=== PATIENT | male | born 1935 | race Caucasian/White ===

== ENCOUNTER 2020-04-30 11:27 | Inpatient (IN) | payer MEDICARE, SELFPAY ==
[2020-04-30] VITALS (13 sets, daily range): BP systolic 117–157; BP diastolic 62–77; PULSE 66–105; RESP 16–36; TEMP 37.4–37.8; O2SAT 89–95
--- NOTE | ~2020-04-30 | CT_ITS ---
EXAMINATION: CT abdomen pelvis w con DATE: 04/30/2020 13:14 INDICATION: Abdominal pain. TECHNIQUE: Computed tomography (CT) of the abdomen and pelvis was performed with 100 mL Omnipaque 350 intravenous contrast. Automated exposure control and iterative reconstruction technique were employe d. The dose-length product was 1377.33 mGy-cm. COMPARISON: CT abdomen and pelvis 12/10/2008 FINDINGS: The visualized portions of the lung bases demonstrates mild atelectasis. No pleural effusio n. Cardiomegaly is noted. There are coronary artery calcifications. No pericardial effusion. Calcifie d right hilar lymph nodes are consistent with old granulomatous disease. There is a 4 mm cyst in the liver. There is new moderate intrahepatic biliary duct dilatation. The common duct is dilated to 17 m m. There is a 2.8 cm partially calcified hyperenhancing mass in the head of the pancreas with strictu re of the common duct. The gallbladder is normal. Calcifications in the spleen are consistent with ol d granulomatous disease. Right adrenal gland is normal. 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 There is a 1.5 cm cyst in right kidney. Left kidney is normal. There is diffuse bladder wall thickening, likely secondary to chronic outlet obstruction from the moderately enlarged prostate. There is diverticulosis of the colon without evidence of diverticu litis. There are no dilated loops of bowel. The appendix is normal. Again seen is fat stranding at th e root of the small bowel mesentery, consistent with edema versus inflammation/scarring. There is a r ight inguinal hernia containing fat. There are no pathologically enlarged lymph nodes. There is no fr ee intraperitoneal fluid. There is moderate lumbar spondylosis. There are bridging endplate osteophyt es at multiple levels in the thoracic spine, consistent with diffuse idiopathic skeletal hyperostosis (DISH). IMPRESSION: 1. 2.8 cm pancreatic mass with common bile duct stricture and moderate intrahepatic and extrahepatic biliary duct dilatation. The differential diagnosis includes pancreatic neuroendocrine carcinoma and cholangiocarcinoma. ERCP is recommended. Reviewed, dictated and finalized at location A. FARM ATTENDANT IMPRESSION: 1. 2.8 cm pancreatic mass with common bile duct stricture and moderate intrahep atic and extrahepatic biliary duct dilatation. The differential diagnosis inclu junito pancreatic neuroendocrine carcinoma and cholangiocarcinoma. ERCP is recomme nded.
--- NOTE | ~2020-04-30 | XR_ITS ---
EXAMINATION: XR chest 2V DATE: 04/30/2020 12:39 INDICATION: Weakness and tremors TECHNIQUE: AP and lateral views of the chest are obtained. COMPARISON: None available FINDINGS: There are minimal airspace opacities of the left lower lobe. There is no pleural effusion o r pneumothorax. The cardiomediastinal silhouette is normal. There is mild thoracic spondylosis. IMPRESSION: 1. Minimal left lower lobe airspace opacity, consistent with atelectasis versus pneumonia. Reviewed, dictated and finalized at location A. D BANK ASSISTANT
--- NOTE | 2020-04-30 12:00 | ECG_ITS ---
Measurements Intervals [place] Rate: 102 P: 34 OH: 134 QRS: -8 QRSD: 142 T: 47 QT: 330 QTc: 432 Interpretive Statements SINUS TACHYCARDIA RIGHT BUNDLE BRANCH BLOCK BASELINE ARTIFACT- I, II, III, AVR, AVL, AVF, V3-V6 ABNORMAL ECG Electronically Signed On 04-30-2020 12:26:27 SUBSTATION OPERATOR AUTOMATIC by Les Oneill D.O.
[2020-04-30 12:28] LABS: Basophils Percent Auto 0.5 % (0.2-1.2); Eosinophils Percent Auto 0.3 % (0-4.4); Hematocrit 43.2 % (42.0-52.0); Hemoglobin 14.6 g/dL (14.0-18.0); Immature Granulocyte Absolute 0.11 K/mm3 (0.00-0.031); Immature Granulocyte Percent A 1.4 % (0-0.5); Lymphocytes Absolute Auto 0.41 K/mm3 (0.9-3.2); Lymphocytes Percent Auto 5.2 % (18.3-44.2); Mean Corpuscular HGB Conc 33.8 g/dl (32-36); Mean Corpuscular Hemoglobin 29.6 pg (26-34); Mean Corpuscular Volume 87.6 fl (80-100); Mean Platelet Volume 9.3 fl (7.4-10.4); Monocytes Absolute Auto 0.6 K/mm3 (0.1-0.6); Monocytes Percent Auto 7.2 % (2.6-8.5); Neutrophils Absolute Auto 6.7 K/mm3 (1.3-6.7); Neutrophils Percent Auto 85.4 % (45.5-73.1); Platelet Count Result 152 k/mm3 (150-375); Red Blood Count 4.93 M/mm3 (4.6-6.20); Red Cell Distribution Width 13.1 % (11.5-14.5); White Blood Count 7.8 K/mm3 (4.5-10.0)
[2020-04-30] MEDS: SODIUM CHLORIDE 0.9% IV 500 ML 999 ML IV CONT (12:29)
[2020-04-30 12:39] LABS: Alanine Aminotransferase 82 U/L (4-50); Albumin Level 3.7 g/dL (3.5-5.1); Alkaline Phosphatase 79 U/L (38-126); Anion Gap 5 mmol/L (8-16); Aspartate Amino Transferase 177 U/L (17-59); Bilirubin,Total 0.6 mg/dL (0.2-1.3); Blood Urea Nitrogen 13 mg/dL (9-20); Calcium 8.4 mg/dL (8.4-10.2); Carbon Dioxide 28 mmol/L (22-30); Chloride 101 mmol/L (98-107); Estimated CRCL calculation 64 ml/min; Estimated Glomerular Filt Rate > 60; Glucose 141 mg/dL (75-110); Potassium 3.9 mmol/L (3.4-5.0); Sodium 134 mmol/L (137-145)
[2020-04-30 13:17] LABS: Lactic Acid Reflex 1.2 mmol/L (0.7-2.1)
[2020-04-30 13:19] LABS: Add Urine Microscopic? YES; Appearance Urine Clear (Clear); Bacteria Urine Trace /hpf; Bilirubin Urine Negative (Negative); Blood Urine 2+ (Negative); Color Urine Yellow (Yellow); Glucose Urine UA Negative (Negative); Ketones Urine Negative (Negative); Leukocyte Esterase Ur 3+ LEU/UL (Negative); Mucus Urine Rare /lpf; Nitrate Urine Negative (Negative); Protein Urine 1+ mg/dL (Negative); Specific Grav Ur 1.019 (1.001-1.035); Urobilinogen Urine Negative mg/dL (<2.0); WBC Clumps Urine Present /HPF; WBC Urine >75 /hpf
--- NOTE | 2020-04-30 13:21 | ED.GENADULT ---
HPI - General Adult General Chief complaint: Weakness Stated complaint: UTI/ weakness Time Seen by Provider: 04/30/20 12:16 Source: patient Mode of arrival: ambulatory Limitations: no limitations History of Present Illness HPI narrative: Patient is an 85-year-old male who presents to emergency department for evaluation of feeling as though he may have urinary tract infection coupled with dehydration patient notes some burning with urination notes fatigue and not feeling well denies URI symptoms or other complaints patient has not been seen for this complaint lives at home by himself Related Data Allergies Allergy/AdvReac Type Severity Reaction Status Date / Time No Known Allergies Allergy Unknown Verified 02/19/20 09:35 NKFA Allergy Unknown Unknown Uncoded 02/19/20 09:35 [facility] Past Medical History Medical History (Updated 04/30/20 @ 15:02 by Apolinar Up PA-C) Hypertension Family History Family History Sibling Family history of diabetes mellitus in first degree relative Social History Social History Smoking status: Never smoker Alcohol intake: never Exam Narrative: Exam Narrative: GENERAL: Well-appearing, obese, and in no acute distress. HEAD: Normocephalic, atraumatic. EYES: PERRLA and EOMI. ENT: Nares clear, no rhinorrhea or epistaxis. Mucous membranes moist. NECK: Supple. No adenopathy or masses. CHEST: Clear to auscultation. No respiratory distress. No wheezes rales or rhonchi HEART: Regular rate and rhythm. No murmur heard. Normal peripheral pulses. ABDOMEN: Soft, nontender, nondistended EXTREMITIES: Normal range of motion. No edema. SKIN: Warm, dry, no rash. NEURO: No focal deficits. Alert and oriented x3. Cranial nerves II through XII grossly intact. Patient with resting tremor PSYCH: Normal mood and affect. Course Course Emergency Course: Patient presented with concern for urinary tract infection and dehydration which appears to be correct on CT imaging of the patient she was found to have a pancreatic mass, discussion was made with litigation examiner who notes she will likely do ERCP. GI notes that they will consult on the patient. Patient will be at admitted to the hospitalist service. Patient in the room in no distress feeling better with interventions to include fluids and antibiotics Consultations Consultation #1: Discussed case with Dr. Durant who will consult on the patient with planned ERCP and reevaluation Discussed case with [facility] who is agreed to accept the patient Date: 04/30/20 Time: 15:00 Vital Signs Vital signs: Vital Signs Temperature 100.1 F H 04/30/20 11:56 Pulse Rate 105 H 04/30/20 11:56 Respiratory Rate 19 04/30/20 11:56 Blood Pressure 120/67 04/30/20 11:56 Pulse Oximetry 95 04/30/20 11:56 Temperature 100.1 F H 04/30/20 11:56 Pulse Rate 82 04/30/20 13:32 Respiratory Rate 31 H 04/30/20 13:32 Blood Pressure 129/62 04/30/20 13:32 Pulse Oximetry 93 04/30/20 13:32 Medical Decision Making MDM Narrative Medical decision making narrative: Patient in the room at this time aware of case findings treatment plan diagnosis agreeing to the treatment plan has been hydrated given IV antibiotics and will be brought into the hospital for further evaluation of his CT findings and urinary tract infection. Patient denies any URI symptoms Vital Signs Vital Signs: Vital Signs Temperature 100.1 F H 04/30/20 11:56 Pulse Rate 105 H 04/30/20 11:56 Respiratory Rate 19 04/30/20 11:56 Blood Pressure 120/67 04/30/20 11:56 Pulse Oximetry 95 04/30/20 11:56 Temperature 100.1 F H 04/30/20 11:56 Pulse Rate 82 04/30/20 13:32 Respiratory Rate 31 H 04/30/20 13:32 Blood Pressure 129/62 04/30/20 13:32 Pulse Oximetry 93 04/30/20 13:32 Lab Data Result diagrams: 04/30/20 12:14 04/30/20 12:14
[2020-04-30 13:30] LABS: CRP 13.6 mg/dL (<1.0)
[2020-04-30 13:47] LABS: Lipase 98 U/L (23-300)
--- NOTE | 2020-04-30 16:45 | WPDGICN ---
Assessment and Plan Assessment and plan (1) Mass of pancreas: Code(s): K86.89 - Other specified diseases of pancreas Status: Acute Assessment and Plan: Patient has elevated transaminases. CT scan suggested 2.5cm mass in the pancreas with partial obstruction of the common bile duct. Most consistent with pancreatic cancer. Plan is to obtain CA 19-9 tumor marker. ERCP with possible stent placement is advised after patient is rehydrated. Broad-spectrum antibiotics for his urinary tract infection such as Cipro or Levaquin may also help minimize possible obstruction in the biliary tree. Ultimately. Shunt may require biopsy of this and will require referral for endoscopic ultrasound to a tertiary care center. It may be feasible to ask for ERCP to be done at the same time. (2) Urinary tract infection: Code(s): N39.0 - Urinary tract infection, site not specified Status: Acute (3) Atrial fibrillation: Qualifiers: Atrial fibrillation type: unspecified Qualified Code(s): I48.91 - Unspecified atrial fibrillation Code(s): I48.91 - Unspecified atrial fibrillation Status: Acute (4) Resting tremor: Code(s): G25.2 - Other specified forms of tremor Status: Acute GI Consult Note Consult date/time: 04/30/20 16:45 HPI: Saad Norton is a 85 year old male Seen in evaluation at the request of the emergency room. Patient reports having some difficulty urinating associated with some burning with urination over the last several days. He became somewhat weak. And for this reason presented to the emergency room. In the emergency room he was noted to have elevated LFTs. A CT scan of the abdomen was performed raising the question of a 2-1/2cm pancreatic mass. Partial obstruction the common bile duct was suggested as well. Patient denies any overt abdominal pain. He has had no history of jaundice. He denies any prior history of liver or pancreatic disease. Review of Systems Review of Systems: All systems reviewed & are unremarkable except as noted in HPI and below [facility] Past Medical History Medical History (Updated 04/30/20 @ 15:02 by Apolinar Up PA-C) Hypertension Family History Family History Sibling Family history of diabetes mellitus in first degree relative Social History Social History (Reviewed 02/19/20 @ 09:37 by Amy Mack Smoking status: Never smoker Alcohol intake: never Meds Home Medications and Allergies Home Medications Medication Instructions Recorded Confirmed Type aspirin 81 mg tablet,delayed 81 mg PO DAILY #1 tablet 02/19/20 02/19/20 Rx release calcium polycarbophil 625 mg tablet 1,250 mg PO DAILY #1 tablet 02/19/20 02/19/20 Rx amlodipine 5 mg tablet See Rx Instructions .ROUTE 04/06/20 04/30/20 Rx .COMPLEX #90 tablet Allergies Allergy/AdvReac Type Severity Reaction Status Date / Time No Known Allergies Allergy Unknown Verified 02/19/20 09:35 NKFA Allergy Unknown Unknown Uncoded 02/19/20 09:35 Vital Signs Vital Signs - 24 hr 04/30/20 11:56 04/30/20 12:09 04/30/20 12:15 Temperature 100.1 F H Pulse Rate 105 H 100 101 H Respiratory Rate 19 36 H 28 H Blood Pressure 120/67 Pulse Oximetry 95 93 93 04/30/20 12:21 04/30/20 12:46 04/30/20 12:47 Temperature Pulse Rate Respiratory Rate Blood Pressure 140/74 157/77 H Pulse Oximetry 93 89 L 91 04/30/20 13:14 04/30/20 13:17 04/30/20 13:30 Temperature Pulse Rate 88 90 66 Respiratory Rate 24 H 34 H 27 H Blood Pressure Pulse Oximetry 92 93 92 04/30/20 13:32 04/30/20 15:00 04/30/20 16:15 Temperature Pulse Rate 82 83 82 Respiratory Rate 31 H 16 18 Blood Pressure 129/62 125/63 123/75 Pulse Oximetry 93 94 95 Exam Narrative: Exam Narrative: Physical exam reveals patient be alert. Vital signs stable. HEENT exam unremarkable. Patient is anicteric. Lung
[2020-04-30] MEDS: LACTATED RINGERS 1,000 ML 80 ML IV CONT (17:23)
--- NOTE | 2020-04-30 17:35 | ADMGEN ---
This patient, Saad Norton, was admitted to 3 [facility] Surg Room 332-01. Report received from GARY Pham. Patient/family oriented to hospital policies and general routines including ID bracelet, bed and alarms, visiting hours, pain management, procedures, bathroom and other care routines, personal items, smoking policy, room service/diet, and visiting hours. Information on how to activate the Rapid Response Team has been discussed. Patient/Family are encouraged to report perceived risks to care and to ask questions if they do not understand what they are told or what they should do.
--- NOTE | 2020-04-30 20:12 | PM.IMHP ---
H&P: HPI History of Present Illness Date/Time: 04/30/20 20:12 Chief Complaint: Dysuria Narrative: Saad Norton is a 85 year old male who came to the emergency room for evaluation of feeling with a urinary tract infection. His bleeding with urination in low-grade fever. He feels very fatigued. The patient was found to have urinary tract infection. He denies any upper respiratory infections. Denies being around any with COVID-19. Abdominal pelvis CT was read as 2.8 cm pancreatic mass with common bile duct stricture and moderate intrahepatic and extrahepatic biliary duct dilatation. Liver enzymes are mildly elevated he is not having any abdominal pain. I did call the hepatobiliary team and they did take down his information will see him outpatient [place]. Dr. branham a nursing education consultant has seen the patient. CA 19-19 tumor markers were checked. Gastroenteritis is no noted that it may be feasible desk for ERCP to be done with referral for endoscopy ultrasound tertiary [facility]. That is when I contacted the [facility] biliary specialist at [place]. I did push the CT scan and faxed over the face sheet to [facility]. The patient was given IV fluid as IV Tylenol and Rocephin. Shows minimal left lower lobe airspace opacity consistent with atelectasis versus pneumonia. Patient is being admitted to observation the date of service 04/30/2020. Review of Systems Review of Systems: All systems reviewed & are unremarkable except as noted in HPI and below Constitutional: Constitutional: Reports as per HPI and Reports no additional constitutional complaints Eyes: Eyes: Reports as per HPI and Reports no additional eye complaints ENT: Reports system reviewed and no additional complaints, except as documented and Reports Normal hearing present Cardiovascular: Cardiovascular: Reports no additional cardiovascular complaints Respiratory: Respiratory: Reports no additional respiratory complaints and Reports no additional respiratory complaints Gastrointestinal: Gastrointestinal: Reports as per HPI and Reports no additional gastrointestinal complaints Musculoskeletal: Musculoskeletal: Reports no additional musculoskeletal complaints Integumentary/Breasts: Skin/Breast: Reports system reviewed and no additional complaints, except as docu and Reports as per HPI Neurologic: Reports system reviewed and no additional complaints, except as documented, Reports as per HPI and Reports Normal hearing present Psychiatric: Psychiatric: Reports no additional psychiatric complaints and Reports as per HPI Endocrine: Endocrine: Reports no additional endocrine complaints Hematologic/Lymphatic: Hematologic/Lymphatic: Reports no additional hematologic/lymphatic complaints Allergic/Immunologic: Allergic/Immunologic: Reports no additional allergic/immunologic complaints [facility] Past Medical History Medical History (Updated 04/30/20 @ 20:26 by Tracy Ladd NP) Hypertension S/P ORIF (open reduction internal fixation) fracture Left ankle Surgical History Surgical History (Updated 04/30/20 @ 20:26 by Tracy Ladd NP) History of ankle surgery ORIF left ankle Family History Family History (Updated 04/30/20 @ 20:27 by Tracy Ladd NP) Sibling Family history of diabetes mellitus in first degree relative Mother Diabetes mellitus Hypertension Father Sudden Social History Social History (Updated 04/30/20 @ 20:38 by Tracy Ladd NP) Social History: The patient is living home alone. He is . He does not have a durable power sports attorney for healthcare. The patient is retired from frenting. He is a lifelong nonsmoker. He does not use any alcohol or illicit drugs. The patient had 1 daughter and no other children Smoking status: Never smoker Alcohol intake: never Substance use: never Spiritual care concerns: No Meds Home Medications and Allergies Home Medications Medication Instructions Recorded Confirmed Type as
[2020-04-30] MEDS: levoFLOXacin 500 MG/D5W 100 ML 500 MG/100 ML BAG 100 MG IVPB (22:00)
[2020-04-30] MEDS: FAMOTIDINE 20 MG/2 ML VIAL IV PUSH (22:00)
[2020-05-01] VITALS (7 sets, daily range): BP systolic 116–144; BP diastolic 53–63; PULSE 66–81; RESP 20–22; TEMP 36.9–37.2; O2SAT 92–94
[2020-05-01] MEDS: LACTATED RINGERS 1,000 ML 80 ML IV CONT (05:24)
[2020-05-01 06:01] LABS: Basophils Absolute Auto 0.1 K/mm3 (0.0-0.1); Basophils Percent Auto 0.8 % (0.2-1.2); Eosinophils Percent Auto 0.5 % (0-4.4); Hematocrit 42.9 % (42.0-52.0); Hemoglobin 14.5 g/dL (14.0-18.0); Immature Granulocyte Percent A 1.6 % (0-0.5); Immature Platelet Fraction Pct 2.1 % (0.9-11.2); Lymphocytes Absolute Auto 0.68 K/mm3 (0.9-3.2); Lymphocytes Percent Auto 10.9 % (18.3-44.2); Mean Corpuscular HGB Conc 33.8 g/dl (32-36); Mean Corpuscular Hemoglobin 29.7 pg (26-34); Mean Corpuscular Volume 87.7 fl (80-100); Mean Platelet Volume 8.9 fl (7.4-10.4); Monocytes Absolute Auto 0.8 K/mm3 (0.1-0.6); Monocytes Percent Auto 13.3 % (2.6-8.5); Neutrophils Absolute Auto 4.6 K/mm3 (1.3-6.7); Neutrophils Percent Auto 72.9 % (45.5-73.1); Platelet Count Result 157 k/mm3 (150-375); Red Blood Count 4.89 M/mm3 (4.6-6.20); White Blood Count 6.2 K/mm3 (4.5-10.0)
[2020-05-01 07:01] LABS: Alanine Aminotransferase 74 U/L (4-50); Albumin Level 3.2 g/dL (3.5-5.1); Alkaline Phosphatase 72 U/L (38-126); Anion Gap 3 mmol/L (8-16); Aspartate Amino Transferase 129 U/L (17-59); Bilirubin Indirect 0.3 mg/dL (0-1.1); Bilirubin,Total 0.5 mg/dL (0.2-1.3); Blood Urea Nitrogen 11 mg/dL (9-20); Calcium 7.9 mg/dL (8.4-10.2); Carbon Dioxide 27 mmol/L (22-30); Chloride 102 mmol/L (98-107); Estimated CRCL calculation 64 ml/min; Estimated Glomerular Filt Rate > 60; Glucose 94 mg/dL (75-110); Lactate Dehydrogenase 657 U/L (313-618); Magnesium 1.6 mg/dL (1.6-2.3); Potassium 3.8 mmol/L (3.4-5.0); Sodium 132 mmol/L (137-145)
--- NOTE | 2020-05-01 07:20 | WPDGIPROGNO ---
Progress Note: A&P Assessment and Plan (1) Mass of pancreas: Code(s): K86.89 - Other specified diseases of pancreas Status: Acute Assessment and Plan: 2-1/2cm mass of the pancreas noted on CT scan. Appears to be contributing to biliary stricture. Malignancy is strongly suspected. Elevated transaminases noted on labs. Patient will need endoscopic ultrasound for possible possible biopsy. He ERCP for possible stent. Suggest referral to [facility] biliary service as an outpatient for this to be accomplished. CA 19-9 level is pending. (2) Urinary tract infection: Code(s): N39.0 - Urinary tract infection, site not specified Status: Acute Assessment and Plan: Patient admitted with urinary tract infection and evidence for dehydration. Plan is to continue IV fluids advanced diet as tolerated. (3) Atrial fibrillation: Qualifiers: Atrial fibrillation type: unspecified Qualified Code(s): I48.91 - Unspecified atrial fibrillation Code(s): I48.91 - Unspecified atrial fibrillation Status: Acute Additional Plan Patient remains very weak. He may benefit from home health or therapy prior to discharge. Subjective Date/time seen: 05/01/20 07:20 Patient remains somewhat weak. But feels somewhat better today. States he took several hours to get out of his bathtub yesterday. He denies abdominal pain. No obvious icterus. Review of Systems Review of Systems: All systems reviewed & are unremarkable except as noted in HPI and below Exam Narrative: Exam Narrative: Physical exam reveals him to be alert. Comfortable at rest. HEENT exam unremarkable. He is anicteric. Lungs are clear. Heart without murmur. Abdomen is obese. Bowel sounds present soft nontender this morning. Unable to get out of bed on his own. Objective Data Vital Signs Vital Signs: Vital Signs - 24 hr 04/30/20 11:56 04/30/20 12:09 04/30/20 12:15 Temperature 100.1 F H Pulse Rate 105 H 100 101 H Respiratory Rate 19 36 H 28 H Blood Pressure 120/67 Pulse Oximetry 95 93 93 04/30/20 12:21 04/30/20 12:46 04/30/20 12:47 Temperature Pulse Rate Respiratory Rate Blood Pressure 140/74 157/77 H Pulse Oximetry 93 89 L 91 04/30/20 13:14 04/30/20 13:17 04/30/20 13:30 Temperature Pulse Rate 88 90 66 Respiratory Rate 24 H 34 H 27 H Blood Pressure Pulse Oximetry 92 93 92 04/30/20 13:32 04/30/20 15:00 04/30/20 16:15 Temperature Pulse Rate 82 83 82 Respiratory Rate 31 H 16 18 Blood Pressure 129/62 125/63 123/75 Pulse Oximetry 93 94 95 04/30/20 22:00 05/01/20 00:00 05/01/20 06:00 Temperature 99.3 F 98.9 F 98.9 F Pulse Rate 85 81 81 Respiratory Rate 24 H 22 H 22 H Blood Pressure 117/67 116/62 116/62 Pulse Oximetry 94 93 93 Intake/Output Intake/Output: Intake & Output 04/28/20 04/29/20 04/30/20 05/01/20 23:59 23:59 23:59 23:59 Intake Total 1130 1250 Balance 1130 1250 Meds/Results Medications: Active Medications Generic Name Dose Route Start Last Admin Trade Name Freq PRN Reason Stop Dose Admin Amlodipine Besylate 10 mg 05/01/20 09:00 Amlodipine Besylate 5 Mg Tablet PO DAILY MARIBEL Aspirin 81 mg 05/01/20 09:00 Aspirin 81 Mg Enteric Tablet PO DAILY [facility] Calcium Polycarbophil 1,250 mg 05/01/20 09:00 Calcium Polycarbophil 625 Mg Tablet PO DAILY MARIBEL Famotidine 20 mg 04/30/20 21:00 04/30/20 22:00 Famotidine 20 Mg/2 Ml Vial IV PUSH 20 mg Q12HR MARIBEL Administration Fish Oil 1 gm 05/01/20 09:00 [place] 3 Polyunsat Fatty Acids 1 Gm Cap PO DAILY MARIBEL Acetaminophen 1,000 mg in 100 mls @ 400 mls/hr 04/30/20 15:03 Ofirmev 1,000 Mg Ivpb IVPB 05/01/20 15:04 Q6H PRN Mild Pain (1-3) or Fever Lactated Ringer's 1,000 mls @ 80 mls/hr 04/30/20 15:05 05/01/20 05:24 Lr - Lactated Ringers Iv IV CONT 80 mls/hr .[id number] MARIBEL Administration Levofloxacin/Dextrose 500 mg in 100 mls @ 100 mls/hr
[2020-05-01] MEDS: ASPIRIN 81 MG ENTERIC TABLET PO (09:36)
[2020-05-01] MEDS: calcium polycarbophiL 625 MG TABLET 1250 MG PO (09:36)
[2020-05-01] MEDS: amLODIPine BESYLATE 5 MG TABLET 10 MG PO (09:37)
[2020-05-01] MEDS: FAMOTIDINE 20 MG/2 ML VIAL IV PUSH ×2 (09:37→21:47)
[2020-05-01] MEDS: OMEGA 3 POLYUNSAT FATTY ACIDS 1 GM CAP PO (09:37)
--- NOTE | 2020-05-01 11:42 | PM.IMPN ---
Progress Note: A&P Assessment and Plan (1) Suspected COVID-19 virus infection: Code(s): Z20.822 - Contact with and (suspected) exposure to COVID-19 Status: Acute Assessment and Plan: Pending COVID-19 testing No shortness of breath no cough no hypoxia (2) Mass of pancreas: Code(s): K86.89 - Other specified diseases of pancreas Status: Acute Assessment and Plan: 2.1-2.5 cm pancreatic mass associated with dilated intrahepatic and extrahepatic bile ducts need further workup as outpatient Gastroenterology recommendation appreciated Mildly elevated LFT Patient does not have abdominal pain No evidence of ascending cholangitis Plan to follow-up with established specialty finishing utility person as outpatient may need stent and biopsy (3) Urinary tract infection: Code(s): N39.0 - Urinary tract infection, site not specified Status: Acute Assessment and Plan: Reviewed UA Pending urine culture Continue IV antibiotics (4) Atrial fibrillation: Qualifiers: Atrial fibrillation type: unspecified Qualified Code(s): I48.91 - Unspecified atrial fibrillation Code(s): I48.91 - Unspecified atrial fibrillation Status: Acute Assessment and Plan: Stable continue home medication chronic (5) Essential (primary) hypertension: Code(s): I10 - Essential (primary) hypertension Status: Acute Assessment and Plan: Stable continue home meds (6) Mixed hyperlipidemia: Code(s): E78.2 - Mixed hyperlipidemia Status: Acute Assessment and Plan: Statin (7) Resting tremor: Code(s): G25.2 - Other specified forms of tremor Status: Acute (8) Hyponatremia: Code(s): E87.1 - Hypo-osmolality and hyponatremia Status: Acute Assessment and Plan: Acute hyponatremia monitor CMP improved IV hydration Additional Plan Monitor Subjective Date/time seen: 05/01/20 11:42 Interval history: Patient seen and examined Patient feels weak still complaining of atrial Patient denies fever headache chest pain shortness of breath I am seeing the patient for UTI Exam Narrative: Exam Narrative: Alert Chest no wheeze crackles Abdomen nontender nondistended CVS S1 + S2 Negative Lower extremity edema Objective Data Vital Signs Vital Signs: Vital Signs - 24 hr 04/30/20 11:56 04/30/20 12:09 04/30/20 12:15 Temperature 100.1 F H Pulse Rate 105 H 100 101 H Respiratory Rate 19 36 H 28 H Blood Pressure 120/67 Pulse Oximetry 95 93 93 04/30/20 12:21 04/30/20 12:46 04/30/20 12:47 Temperature Pulse Rate Respiratory Rate Blood Pressure 140/74 157/77 H Pulse Oximetry 93 89 L 91 04/30/20 13:14 04/30/20 13:17 04/30/20 13:30 Temperature Pulse Rate 88 90 66 Respiratory Rate 24 H 34 H 27 H Blood Pressure Pulse Oximetry 92 93 92 04/30/20 13:32 04/30/20 15:00 04/30/20 16:15 Temperature Pulse Rate 82 83 82 Respiratory Rate 31 H 16 18 Blood Pressure 129/62 125/63 123/75 Pulse Oximetry 93 94 95 04/30/20 22:00 05/01/20 00:00 05/01/20 06:00 Temperature 99.3 F 98.9 F 98.9 F Pulse Rate 85 81 81 Respiratory Rate 24 H 22 H 22 H Blood Pressure 117/67 116/62 116/62 Pulse Oximetry 94 93 93 05/01/20 08:00 05/01/20 08:52 Temperature 98.8 F Pulse Rate 66 Respiratory Rate 20 Blood Pressure 128/63 Pulse Oximetry 93 94 Intake/Output Intake/Output: Intake & Output 04/28/20 04/29/20 04/30/20 05/01/20 23:59 23:59 23:59 23:59 Intake Total 1130 1250 Balance 1130 1250 Meds/Results Medications: Active Medications Generic Name Dose Route Start Last Admin Trade Name Diana PRN Reason Stop Dose Admin Amlodipine Besylate 10 mg 05/01/20 09:00 05/01/20 09:37 Amlodipine Besylate 5 Mg Tablet PO 10 mg DAILY MARIBEL Administration Aspirin 81 mg 05/01/20 09:00 05/01/20 09:36 Aspirin 81 Mg Enteric Tablet PO 81 mg DAILY MARIBEL Administration Calcium Polycarbophil 1,250 mg
[2020-05-01 18:47] LABS: SARS-CoV-2 RNA PCR Negative
[2020-05-01] MEDS: levoFLOXacin 500 MG/D5W 100 ML 500 MG/100 ML BAG 100 MG IVPB (21:47)
[2020-05-02 01:27] VITALS: BP 128/49; PULSE 67; RESP 19; TEMP 36.9; O2SAT 92
[2020-05-02] MEDS: LACTATED RINGERS 1,000 ML 80 ML IV CONT (05:20)
[2020-05-02 06:00] VITALS: BP 128/49; PULSE 67; RESP 20; TEMP 36.9; O2SAT 92
[2020-05-02] MEDS: OMEGA 3 POLYUNSAT FATTY ACIDS 1 GM CAP PO (08:55)
[2020-05-02] MEDS: ASPIRIN 81 MG ENTERIC TABLET PO (08:55)
[2020-05-02] MEDS: amLODIPine BESYLATE 5 MG TABLET 10 MG PO (08:55)
[2020-05-02] MEDS: FAMOTIDINE 20 MG/2 ML VIAL IV PUSH (08:55)
[2020-05-02] MEDS: calcium polycarbophiL 625 MG TABLET 1250 MG PO (08:55)
--- NOTE | 2020-05-02 10:35 | WPDGIPROGNO ---
Progress Note: A&P Assessment and Plan (1) Urinary tract infection: Code(s): N39.0 - Urinary tract infection, site not specified Status: Acute Assessment and Plan: UTI improving with broad-spectrum antibiotics. Course of therapy will be dictated by primary care service. (2) Mass of pancreas: Code(s): K86.89 - Other specified diseases of pancreas Status: Acute Assessment and Plan: Mass on the pancreas identified by CT scan. This appears to be causing a biliary stricture. Elevated serum transaminases are on this basis. Plan is for referral as an outpatient to [facility] biliary Service for endoscopic ultrasound hopefully they can biopsy this a stent may need to be placed. This will be deferred to their service. And performed as an outpatient. Subjective Date/time seen: 05/02/20 10:35 Patient alert more comfortable today. Tolerating diet. Denies abdominal pain. Review of Systems Review of Systems: All systems reviewed & are unremarkable except as noted in HPI and below Exam Narrative: Exam Narrative: Patient weak but remains in bed. HEENT exam unremarkable. He is anicteric. Lungs are clear. Heart without murmur. Abdomen bowel sounds present soft nontender. No organomegaly evident. Objective Data Vital Signs Vital Signs: Vital Signs - 24 hr 05/01/20 12:00 05/01/20 16:00 05/01/20 21:27 Temperature 98.6 F 98.5 F 98.5 F Pulse Rate 73 70 70 Respiratory Rate 20 20 20 Blood Pressure 144/61 H 122/53 L 122/57 L Pulse Oximetry 92 94 92 05/02/20 01:27 05/02/20 06:00 Temperature 98.5 F 98.5 F Pulse Rate 67 67 Respiratory Rate 19 20 Blood Pressure 128/49 L 128/49 L Pulse Oximetry 92 92 Intake/Output Intake/Output: Intake & Output 04/29/20 04/30/20 05/01/20 05/02/20 23:59 23:59 23:59 23:59 Intake Total 1230 3500 1240 Output Total 2650 600 Balance 1230 850 640 Meds/Results Medications: Active Medications Generic Name Dose Route Start Last Admin Trade Name Freq PRN Reason Stop Dose Admin Amlodipine Besylate 10 mg 05/01/20 09:00 05/02/20 08:55 Amlodipine Besylate 5 Mg Tablet PO 10 mg DAILY MARIBEL Administration Aspirin 81 mg 05/01/20 09:00 05/02/20 08:55 Aspirin 81 Mg Enteric Tablet PO 81 mg DAILY MARIBEL Administration Calcium Polycarbophil 1,250 mg 05/01/20 09:00 05/02/20 08:55 Calcium Polycarbophil 625 Mg Tablet PO 1,250 mg DAILY MARIBEL Administration Famotidine 20 mg 04/30/20 21:00 05/02/20 08:55 Famotidine 20 Mg/2 Ml Vial IV PUSH 20 mg Q12HR MARIBEL Administration Fish Oil 1 gm 05/01/20 09:00 05/02/20 08:55 [place] 3 Polyunsat Fatty Acids 1 Gm Cap PO 1 gm DAILY MARIBEL Administration Lactated Ringer's 1,000 mls @ 80 mls/hr 04/30/20 15:05 05/02/20 05:20 Lr - Lactated Ringers Iv IV CONT 80 mls/hr .[id number] MARIBEL Administration Levofloxacin/Dextrose 500 mg in 100 mls @ 100 mls/hr 04/30/20 21:00 05/01/20 22:50 Levaquin 500 Mg/D5w 100 Ml IVPB Infused HS MARIBEL Infusion Ondansetron HCl 4 mg 04/30/20 15:03 Ondansetron Inj 4 Mg/2 Ml Vial IV PUSH Q4H PRN Nausea Radiology Results: ITS Impressions Chest X-Ray 04/30/20 12:41 IMPRESSION: 1. Minimal left lower lobe airspace opacity, consistent with atelectasis versus pneumonia. Abdomen/Pelvis CT 04/30/20 13:19 IMPRESSION: 1. 2.8 cm pancreatic mass with common bile duct stricture and moderate intrahepatic and extrahepatic biliary duct dilatation. The differential diagnosis includes pancreatic neuroendocrine carcinoma and cholangiocarcinoma. ERCP is recommended. ADDENDUM: 04/30/20 1093 I discussed this result with Apolin[facility] Up. Labs Labs: Laboratory Results - last 24 hr 05/01/20 05:20 SARS-CoV-2 RNA (RT-PCR) Negative
--- NOTE | 2020-05-02 11:46 | PM.DS ---
DS: Admitting Diagnosis Admitting Diagnosis Admitting Diagnosis: Generalized weakness DS: Discharge Diagnosis Discharge Diagnosis (1) Suspected COVID-19 virus infection: Code(s): Z20.822 - Contact with and (suspected) exposure to COVID-19 Status: Acute Assessment and Plan: COVID-19 was ruled out No shortness of breath no cough no hypoxia (2) Mass of pancreas: Code(s): K86.89 - Other specified diseases of pancreas Status: Acute Assessment and Plan: 2.1-2.5 cm pancreatic mass associated with dilated intrahepatic and extrahepatic bile ducts need further workup as outpatient Gastroenterology recommendation appreciated Mildly elevated LFT Patient does not have abdominal pain No evidence of ascending cholangitis Plan to follow-up with established trauma director as outpatient may need stent and biopsy (3) Urinary tract infection: Code(s): N39.0 - Urinary tract infection, site not specified Status: Acute Assessment and Plan: Reviewed UA secondary to E coli patient will be discharged on cefdinir (4) Atrial fibrillation: Qualifiers: Atrial fibrillation type: unspecified Qualified Code(s): I48.91 - Unspecified atrial fibrillation Code(s): I48.91 - Unspecified atrial fibrillation Status: Acute Assessment and Plan: Stable continue home medication chronic (5) Essential (primary) hypertension: Code(s): I10 - Essential (primary) hypertension Status: Acute Assessment and Plan: Stable continue home meds (6) Mixed hyperlipidemia: Code(s): E78.2 - Mixed hyperlipidemia Status: Acute Assessment and Plan: Statin (7) Resting tremor: Code(s): G25.2 - Other specified forms of tremor Status: Acute (8) Hyponatremia: Code(s): E87.1 - Hypo-osmolality and hyponatremia Status: Acute Assessment and Plan: Acute hyponatremia monitor CMP improved repeat CMP in 1 week follow-up with PCP DS: Summary Hospital Course Hospital Course: Patient was not in the hospital with chills generalized weakness was found to have UTI secondary to E coli also hyponatremia patient was treated with IV hydration IV antibiotics his condition improved patient was discharged in good condition to follow-up with PCP also patient has pancreatic mass patient to follow-up with established gastroenterology as outpatient Time Spent with Patient Time attestation: Total time spent providing and/or coordinating discharge services: 35 minutes Exam Narrative: Exam Narrative: Alert Chest no wheeze crackles Abdomen nontender nondistended CVS S1 + S2 Negative Lower extremity edema DS: Data Data Completed and Pending Labs on day of discharge: Labs from last 24 hours 05/01/20 05:20 SARS-CoV-2 RNA (RT-PCR) Negative Preliminary micro results at discharge 04/30/20 12:53 Blood Culture - Preliminary Blood 04/30/20 12:53 Blood Culture - Preliminary Blood Discharge Plan Discharge Attending physician on discharge: Alli Hussein M.A. Consulting providers: Adan Peralta ; Apolinar Up Discharging Clinician: Alli Hussein M.A. Patient Disposition: Home Health Service Activity: as tolerated Diet: as tolerated Patient Instructions: Antibiotic Form Stand Alone Forms: General Discharge Information Follow-up/Referrals: Adan Peralta MD [Physician] - Bhargav Montemayor MD [Primary Care Provider] - Discharge Medications: New cefdinir 300 mg capsule 300 mg PO Q12H Qty: 10 RF: 0 Continued aspirin 81 mg tablet,delayed release (DR/EC) 81 mg PO DAILY Qty: 1 RF: 0 calcium polycarbophil [FiberCon] 625 mg tablet 1,250 mg PO DAILY Qty: 1 RF: 0 amlodipine 10 mg Tablet 10 mg PO DAILY RF: 0 [place] 3 Fish Oil 684-1,200 mg Capsule,Delayed Release(Dr/Ec) 1 cap PO DAILY RF: 0 Date of admission: 04/30/20 15:03 Primary Care Provider: Bhargav Montemayor
[2020-05-05 06:14] LABS: CA 19-9 40 U/mL (<34)
== END 2020-05-02 13:20 | disposition home or self-care (01) | DRG 690 ==
LOC: ANHED 15:02 → ANH3MEDSUR 05-01 10:55
PROVIDERS: Emergency Medicine Emergency Medical Services; Internal Medicine Gastroenterology; Nurse Practitioner; Admitting Provider Family Medicine; Emergency Provider Emergency Medicine; PCP Internal Medicine; Visit Provider Internal Medicine
DX: N39.0 Urinary tract infection, site not specified (principal); I48.20 Chronic atrial fibrillation, unspecified; E87.1 Hypo-osmolality and hyponatremia; B96.20 Unspecified Escherichia coli [E. coli] as the cause of diseases classified elsewhere; K86.89 Other specified diseases of pancreas; Z20.822 Contact with and (suspected) exposure to COVID-19; E78.2 Mixed hyperlipidemia; I10 Essential (primary) hypertension; G25.2 Other specified forms of tremor; Z66 Do not resuscitate
CPT/HCPCS: 36415; 71046; 74177; 80053; 81001; 82248; 83605; 83615; 83690; 83735; 84443; 85025; 85055; 86140; 86301; 87040; 87077; 87086; 87088; 87186; 93005; 96361; 96365; 96367; 96375; 96376; 97161; 97165; 99285; A9270; C9803; G0378; J0131; J0696; J1956; J7040; J7120; Q9967; U0003; U0005

== ENCOUNTER 2021-09-17 17:04 | Observation (INO) | payer MEDICARE, SELFPAY ==
--- NOTE | ~2021-09-17 | XR_ITS ---
EXAMINATION: XR chest 2V DATE: 09/17/2021 20:51 INDICATION: Weakness TECHNIQUE: AP and lateral views of the chest are obtained. COMPARISON: None available FINDINGS: The lungs are free of acute opacities. There is no pleural effusion or pneumothorax. The ca rdiomediastinal silhouette is normal. There are bridging osteophytes at multiple levels in the spine, consistent with diffuse idiopathic skeletal hyperostosis (DISH). IMPRESSION: 1. No acute cardiopulmonary abnormality. Reviewed, dictated and finalized at location F.
--- NOTE | ~2021-09-17 | CT_ITS ---
EXAMINATION: CTA chest PE protocol DATE: 09/18/2021 00:01 INDICATION: Weakness, lower limb edema, COVID 19 positive TECHNIQUE: Computed tomography angiography (CTA) of the chest was performed with 100 mL Omnipaque-350 intravenous contrast timed to evaluate the pulmonary arteries. Coronal maximum intensity projection 3D-reconstructions were created by the technologist. The dose-length product (DLP) was 456.09 mGy-cm. Automated exposure control and iterative reconstruction technique were employed. COMPARISON: 04/30/2020 FINDINGS: The pulmonary arteries are well-opacified. No pulmonary embolism is identified. There is mi ld atelectasis. There is no pleural effusion or pneumothorax. No pathologically enlarged thoracic lym ph nodes are identified. The heart size is normal. Calcified coronary artery atherosclerosis is noted . There is atrophy of the left subscapularis muscle. Stones are present in the nondistended gallbladd er. There is chronic intrahepatic and extrahepatic biliary dilatation. 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 IMPRESSION: 1. No pulmonary embolism or acute cardiopulmonary abnormality. 2. Chronic intrahepatic and extrahepatic biliary dilatation, previously demonstrated to be related to pancreatic head mass. Evaluation with ERCP is recommended if not previously performed. Reviewed, dictated and finalized at location A. IMPRESSION: 1. No pulmonary embolism or acute cardiopulmonary abnormality. 2. Chronic intrahepatic and extrahepatic biliary dilatation, previously demonst rated to be related to pancreatic head mass. Evaluation with ERCP is recommende d if not previously performed.
--- NOTE | ~2021-09-17 | XR_ITS ---
EXAMINATION: XR chest 1V portable INDICATION: Shortness of breath, COVID 19 TECHNIQUE: Portable AP chest at 0540 hours COMPARISON: 09/17/2021 FINDINGS: There is mild atelectasis of the lung bases. There is no pleural effusion or pneumothorax. The cardiomediastinal silhouette is normal. There is no pleural effusion or pneumothorax. IMPRESSION: 1. Mild atelectasis of the lung bases. Reviewed, dictated and finalized at location A.
[2021-09-17 17:14] VITALS: BP 122/65; PULSE 77; RESP 20; TEMP 36.6; O2SAT 20
--- NOTE | 2021-09-17 17:23 | ECG_ITS ---
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
[2021-09-17 17:47] LABS: Hematocrit 47.4 % (42.0-52.0); Hemoglobin 15.3 g/dL (14.0-18.0); Mean Corpuscular HGB Conc 32.3 g/dl (32-36); Mean Corpuscular Hemoglobin 29.5 pg (26-34); Mean Corpuscular Volume 91.3 fl (80-100); Mean Platelet Volume 9.2 fl (7.4-10.4); Platelet Count Result 133 k/mm3 (150-375); Red Blood Count 5.19 M/mm3 (4.6-6.20); Red Cell Distribution Width 13.5 % (11.5-14.5); White Blood Count 3.3 K/mm3 (4.5-10.0)
[2021-09-17 17:57] LABS: Anion Gap 7 mmol/L (8-16); Blood Urea Nitrogen 16 mg/dL (9-20); Calcium 8.2 mg/dL (8.4-10.2); Carbon Dioxide 27 mmol/L (22-30); Chloride 101 mmol/L (98-107); Estimated CRCL calculation 64 ml/min; Estimated Glomerular Filt Rate > 60; Glucose 104 mg/dL (65-110); Prothrombin Time 12.3 Seconds (11.1-14.7); Sodium 135 mmol/L (137-145)
[2021-09-17 17:58] LABS: Partial Thromboplastin Time 37.8 SECONDS (22.3-36.8)
[2021-09-17 18:00] VITALS: O2SAT 98
[2021-09-17 18:10] LABS: Band Neutrophils Percent 7 % (0-6); Lymphocytes Absolute Manual 0.85 K/mm3 (1.1-4.5); Monocytes Absolute Manual 0.49 K/mm3 (0.1-0.90); Monocytes Percent Manual 15 % (3-9); Neutrophils Absolute Manual 1.94 K/mm3 (1.3-6.7); Neutrophils Percent Manual 52 % (46-73); Platelet Estimate Decreased (Adequate); Total Cells Counted 100
[2021-09-17 18:11] LABS: Atypical Lymphocytes Present
[2021-09-17 20:45] LABS: Appearance Urine Clear (Clear); Bilirubin Urine Negative (Negative); Blood Urine 2+ (Negative); Color Urine Yellow (Yellow); Glucose Urine UA Negative (Negative); Ketones Urine Negative (Negative); Leukocyte Esterase Ur Negative LEU/UL (Negative); Nitrate Urine Negative (Negative); Protein Urine Negative (Negative); Specific Grav Ur >= 1.030 (1.001-1.035); Urobilinogen Urine 0.2 mg/dL (<2.0); pH Urine 5.5 (5.0-9.0)
[2021-09-17 20:49] LABS: Bacteria Urine Trace /hpf; Mucus Urine Rare /lpf; RBC Urine 21-50 /hpf (0-2); WBC Urine 0-3 /hpf
[2021-09-17 20:51] LABS: Alanine Aminotransferase 309 U/L (6-50); Albumin Level 4.1 g/dL (3.5-5.1); Alkaline Phosphatase 158 U/L (38-126); Aspartate Amino Transferase 167 U/L (17-59); Bilirubin,Total 0.5 mg/dL (0.2-1.3); Creatine Kinase 121 U/L (55-170)
[2021-09-17 20:53] LABS: Add Urine Microscopic? YES
--- NOTE | 2021-09-17 20:59 | ED.WEAKNESS ---
HPI - Weakness General Chief complaint: Weakness Stated complaint: WEAKNESS Time Seen by Provider: 09/17/21 20:11 Source: patient and family Mode of arrival: ambulatory Limitations: other (poor historian) History of Present Illness HPI Narrative: This is an 86 year old male with history of hypertension, tremors, neuropathy who presents for evaluation of weakness and neuropathy. Patient was seen by his PCP with in the last 2 weeks for evaluation of tremors and peripheral neuropathy in feet. He was started o carbidopa- levodopa at that visit. Patient states he is here because his feet feel like he is walking on coals . He states this is not getting any better. His daughter is at bedside, and she states patient is here for weakness. Patient has been telling her he has not felt well since Monday. He has been complaining of cough , congestion and body aches. He denies chest pain, vomiting or diarrhea. HE denies any recent fall or head injury. His daughter also notes patient has stopped taking the carbidopa 2 days ago because he was not having any improvement. Related Data Home Medications Medication Instructions Recorded Confirmed omega-3 fatty acids-fish oil 684 1 cap PO DAILY 04/30/20 09/18/21 mg-1,200 mg capsule,delayed release aspirin 81 mg tablet,delayed 81 mg PO BID 09/18/21 09/18/21 release vitamin B complex (B 1 tablet PO DAILY 09/18/21 09/18/21 Complex-Vitamin B12 tablet) Allergies Allergy/AdvReac Type Severity Reaction Status Date / Time No Known Allergies Allergy Unknown Verified 09/03/21 08:00 NKFA Allergy Unknown Unknown Uncoded 09/03/21 08:00 Review of Systems Constitutional: Constitutional: Reports fatigue and Reports weakness ENT: Reports nasal congestion Cardiovascular: Cardiovascular: Denies chest pain Respiratory: Respiratory: Reports chest congestion and Reports cough Gastrointestinal: Gastrointestinal: Denies abdominal pain, Denies bloating, Denies nausea and Denies vomiting Genitourinary: Genitourinary: Denies dysuria Musculoskeletal: Musculoskeletal: Reports myalgias Neurologic: Reports weakness Comments: tremors PMFSH Past Medical History Medical History (Updated 09/18/21 @ 07:18 by Susana Ryan MD) Hypertension Surgical History Surgical History (Updated 09/03/21 @ 07:59 by Philly Nguyen MA) History of ankle surgery ORIF left ankle S/P ORIF (open reduction internal fixation) fracture Left ankle Status post surgical removal of malignant neoplasm of skin Family History Family History Sibling Family history of diabetes mellitus in first degree relative Mother Diabetes mellitus Hypertension Father Sudden Social History Social History (Updated 02/26/21 @ 07:46 by Kayleen Diaz MA) Social History: The patient is living home alone. He is . He does not have a durable power criminal attorney for healthcare. The patient is retired from [employer]. He is a lifelong nonsmoker. He does not use any alcohol or illicit drugs. The patient had 1 daughter and no other children Smoking status: Never smoker Second hand tobacco smoke exposure: No Alcohol intake: former Substance use: never Spiritual care concerns: No Exam Const: General: no acute distress and alert Nutritional Appearance: well nourished Orientation/consciousness: patient oriented x3 HENMT: Head: normal to inspection Face and sinus: normal facial exam Mouth: Yes Normal oral and palatal mucosa present Eyes: Pupils: Equal, round and reactive pupils present EOM: EOMs intact bilaterally Chest: Chest palpation & inspection: normal inspection of the chest Resp: Effort & Inspection: normal respiratory effort, no retractions and not tachypneic Auscultation: clear to auscultation bilaterally Cardio: Rate: regular rate Rhythm: regular rhythm Heart sounds: no murmurs GI: GI Palp: Yes Soft to
[2021-09-17 21:17] LABS: SARS-CoV-2 RNA PCR Positive
[2021-09-17 21:30] VITALS: BP 104/74; PULSE 63; RESP 24; O2SAT 93
[2021-09-17 21:34] LABS: Ammonia < 9 umol/L (9-30)
[2021-09-17 22:04] LABS: Alveolar/Arterial O2 Gradient 40.5 mmHg; Base Excess ABG -1.6 mEq/l (+/-2.0); Carboxyhemoglobin 0.6 % THb (0-2.0); Device ROOM AIR; Fractional Inspired Oxygen 21 %; HCO3 ABG 22.5 mEq/l (22.0-26.0); Methemoglobin ABG 0.3 %THb (0-1.5); Modified Allen's Test Pass; Oxygen Content ABG 20.4 %vol (16.0-22.0); Oxygen Saturation ABG 93.2 % (95.0-100.0); PCO2 ABG 36.4 mmHg (35.0-45.0); PO2 ABG 65.6 mmHg (80.0-100.0); PO2 FiO2 Ratio Arterial Blood 3.12 %; Reduced Hemoglobin 7.1 %THb (0-5.0); Site Drawn LEFT RADIAL; Total Hemoglobin 15.8 g/dL (12.0-18.0); pH ABG 7.409 (7.350-7.450)
[2021-09-17 22:21] LABS: Hepatitis B Surface Antigen Negative (Negative)
[2021-09-17 22:27] LABS: HAV RESULT Negative (Negative); Hepatitis B Core IgM Result Negative (Negative)
[2021-09-17 22:39] LABS: Hepatitis C Virus Antibody Negative (Negative)
[2021-09-17 22:43] LABS: D Dimer 1.05 ug/mL (<0.48)
[2021-09-18] VITALS (9 sets, daily range): BP systolic 138–158; BP diastolic 55–95; PULSE 60–78; RESP 14–20; TEMP 36.8–37.3; O2SAT 91–98; BMI 30.8
--- NOTE | 2021-09-18 03:35 | ADMGEN ---
This patient, Saad Norton, was admitted to [address] [place] [address] Room [facility] at 0320. Patient/family oriented to hospital policies and general routines including ID bracelet, bed and alarms, visiting hours, pain management, procedures, bathroom and other care routines, personal items, smoking policy, room service/diet, and visiting hours. Information on how to activate the Rapid Response Team has been discussed. Patient/Family are encouraged to report perceived risks to care and to ask questions if they do not understand what they are told or what they should do.
[2021-09-18] MEDS: REMDESIVIR 200 MG/NS 250 ML 200 MG/250 ML BAG 250 MG IVPB (03:55)
[2021-09-18] MEDS: SODIUM CHLORIDE 0.9% IV 1,000 ML 999 ML IV CONT (03:55)
[2021-09-18 04:21] LABS: Prothrombin Time 12.7 Seconds (11.1-14.7)
[2021-09-18 04:29] LABS: Alanine Aminotransferase 300 U/L (6-50); Estimated CRCL calculation 54 ml/min; Estimated Glomerular Filt Rate > 60
--- NOTE | 2021-09-18 11:18 | PM.IMHP ---
H&P: HPI History of Present Illness Date/Time: 09/18/21 11:18 Chief Complaint: Increased generalized weakness Narrative: Patient is an 86-year-old male with a past medical history of hypertension, tremors, neuropathy who presented to the emergency department for complaints of increasing weakness and neuropathy to bilateral lower extremities. Patient was seen by his primary care physician approximately 2 weeks ago for evaluation of his tremors as well as peripheral neuropathy to his feet. He was started on carbidopa levodopa at that visit. Patient reports that his feet have a burning sensation. He did request his gabapentin to be resumed upon admission. Patient apparently has not been feeling well since Monday. Although during my evaluation this morning the patient reported that he would like to go however he is COVID positive with elevated LFTs and increased generalized weakness. PT and OT will follow the patient for further evaluation. Patient denies any recent falls or head injury. His daughter reported that he did quit taking his carbidopa levodopa approximately 2 days ago because he was not having any improvement. While in the emergency department labs and imaging were obtained. WBC 3.3, hemoglobin 15.3, hematocrit 47.4, platelet 133 normal INR and a sodium of 135, potassium 4.0, BUN 16 and creatinine of 0.9 GFR greater than 60. UA revealed 2+ blood and 21-50 rbc's negative nitrite. An ABG was performed which revealed hypoxia, pH 7.4, pCO2 36.4, PO2 65.6 and a bicarb of 22.5. CTA of the chest ruled out a pulmonary embolism but did have an incidental finding of subsegmental atelectatic changes with no focal airspace consolidation. Trace pericardial effusion. Chest x-ray was is not reveal acute cardiopulmonary abnormality. EKG sinus rhythm normal rate at 73 with right bundle-branch block. Patient was admitted for dehydration, COVID-19 and transaminitis. He will be started on medications to alleviate symptoms and his home medications Review of Systems Review of Systems: All systems reviewed & are unremarkable except as noted in HPI and below PMFSH Past Medical History Medical History (Updated 09/18/21 @ 07:18 by Susana Ryan MD) Hypertension Surgical History Surgical History (Updated 09/03/21 @ 07:59 by Philly Nguyen MA) History of ankle surgery ORIF left ankle S/P ORIF (open reduction internal fixation) fracture Left ankle Status post surgical removal of malignant neoplasm of skin Family History Family History Sibling Family history of diabetes mellitus in first degree relative Mother Diabetes mellitus Hypertension Father Sudden Social History Social History (Updated 02/26/21 @ 07:46 by Kayleen Diaz MA) Social History: The patient is living home alone. He is . He does not have a durable power patent attorney for healthcare. The patient is retired from [employer]. He is a lifelong nonsmoker. He does not use any alcohol or illicit drugs. The patient had 1 daughter and no other children Smoking status: Never smoker Second hand tobacco smoke exposure: No Alcohol intake: former Substance use: never Spiritual care concerns: No Meds Home Medications and Allergies Home Medications Medication Instructions Recorded Confirmed Type calcium polycarbophil 625 mg 1,250 mg PO DAILY #1 tablet 02/19/20 09/18/21 Rx tablet (FiberCon) omega-3 fatty acids-fish oil 684 1 cap PO DAILY 04/30/20 09/18/21 History mg-1,200 mg capsule,delayed release amlodipine 5 mg tablet 5 mg PO DAILY #90 tabs 02/26/21 09/18/21 Rx carbidopa ER 50 mg-levodopa 200 mg 1 tablet PO BID #60 tabs 09/03/21 09/18/21 Rx tablet,extended release aspirin 81 mg tablet,delayed 81 mg PO BID 09/18/21 09/18/21 History release vitamin B complex (B 1 tablet PO DAILY 09/18/21 09/18/21 History Complex-Vitamin B12 tablet) Allergies Al
[2021-09-18] MEDS: OMEGA 3 POLYUNSAT FATTY ACIDS 1 GM CAP PO (13:27)
[2021-09-18] MEDS: calcium polycarbophiL 625 MG TABLET 1250 MG PO (13:27)
[2021-09-18] MEDS: VITAMIN B COMPLEX CAPSULE 1 CAP PO (13:27)
[2021-09-18] MEDS: amLODIPine BESYLATE 5 MG TABLET PO (13:27)
[2021-09-18] MEDS: GABAPENTIN 100 MG CAPSULE PO ×2 (13:28→17:23)
[2021-09-18] MEDS: ASPIRIN 81 MG ENTERIC TABLET PO (17:23)
[2021-09-18] MEDS: CARBIDOPA/LEVODOPA 25/100 MG CR TABLET 1 TABLET PO (17:23)
[2021-09-19 02:00] VITALS: BP 110/60; PULSE 56; RESP 18; TEMP 37.5; O2SAT 98
[2021-09-19 05:10] VITALS: BP 127/53; PULSE 56; RESP 18; TEMP 36.6; O2SAT 94
[2021-09-19 06:15] LABS: Basophils Percent Auto 0.4 % (0.2-1.2); Eosinophils Percent Auto 1.2 % (0-4.4); Hemoglobin 15.8 g/dL (14.0-18.0); Immature Granulocyte Absolute 0.01 K/mm3 (0.00-0.031); Immature Granulocyte Percent A 0.4 % (0-0.5); Lymphocytes Absolute Auto 0.94 K/mm3 (0.9-3.2); Lymphocytes Percent Auto 38.2 % (18.3-44.2); Mean Corpuscular HGB Conc 31.6 g/dl (32-36); Mean Corpuscular Hemoglobin 29.3 pg (26-34); Mean Corpuscular Volume 92.8 fl (80-100); Mean Platelet Volume 9.8 fl (7.4-10.4); Monocytes Absolute Auto 0.5 K/mm3 (0.1-0.6); Monocytes Percent Auto 20.3 % (2.6-8.5); Neutrophils Percent Auto 39.5 % (45.5-73.1); Platelet Count Result 125 k/mm3 (150-375); Red Blood Count 5.39 M/mm3 (4.6-6.20); Red Cell Distribution Width 13.2 % (11.5-14.5); White Blood Count 2.5 K/mm3 (4.5-10.0)
[2021-09-19 06:25] LABS: Alanine Aminotransferase 109 U/L (6-50); Albumin Level 3.9 g/dL (3.5-5.1); Alkaline Phosphatase 135 U/L (38-126); Anion Gap 7 mmol/L (8-16); Aspartate Amino Transferase 86 U/L (17-59); Bilirubin,Total 0.3 mg/dL (0.2-1.3); Blood Urea Nitrogen 16 mg/dL (9-20); Calcium 8.2 mg/dL (8.4-10.2); Carbon Dioxide 31 mmol/L (22-30); Chloride 100 mmol/L (98-107); Estimated CRCL calculation 67 ml/min; Estimated Glomerular Filt Rate > 60; Glucose 82 mg/dL (65-110); Potassium 3.8 mmol/L (3.4-5.0); Sodium 138 mmol/L (137-145)
[2021-09-19 06:27] LABS: Prothrombin Time 12.6 Seconds (11.1-14.7)
--- NOTE | 2021-09-19 08:15 | PM.DS ---
DS: Admitting Diagnosis Discharge Date 09/19/2021 Admitting Diagnosis COVID-19 Generalized weakness, physical debility DS: Discharge Diagnosis Discharge Diagnosis (1) Dehydration: Code(s): E86.0 - Dehydration Status: Acute Assessment and Plan: Patient received gentle IV fluid resuscitation, monitor fluid volume status (2) Transaminitis: Code(s): R74.01 - Elevation of levels of liver transaminase levels Status: Acute Assessment and Plan: 2/2 covid Monitor LFTs (3) COVID-19: Code(s): U07.1 - COVID-19 Status: Acute Assessment and Plan: Place in COVID19 isolation precautions, cardiac monitoring, and continuous pulse ox Monitor serum electrolytes, CRP, Lactic acid, troponin, CBC, WBC, temperature curve and follow cultures Pt is a candidate not a for Remdesivir , hold Dexamethasone, continue treatment according to suggested guidelines. Patient currently does not require supplemental oxygen and does not appear to be asymptomatic PRN albuterol MDI . If oxygen requirement increase, consider baricitinib (ESTEPHANIA inhibtor) 4 mg PO daily for 14 days, or until discharge. Add Imodium for diarrhea GI prophylaxis: PPI Hold IV fluids due to possible fluid volume overload due to COVID,patient appears euvolemic (4) Neuropathy: Code(s): G62.9 - Polyneuropathy, unspecified Status: Acute Assessment and Plan: Start gabapentin 100 t.i.d. (5) Parkinsons: Code(s): G20 - Parkinson's disease Status: Acute Assessment and Plan: Continue medications DS: Summary Hospital Course Hospital Course: Patient is an 86-year-old male with a past medical history of hypertension, tremors, neuropathy who presented to the emergency department for complaints of increasing weakness and neuropathy to bilateral lower extremities.? Patient was seen by his primary care physician approximately 2 weeks ago for evaluation of his tremors as well as peripheral neuropathy to his feet.? He was started on carbidopa levodopa at that visit.? Patient reports that his feet have a burning sensation.? He did request his gabapentin to be resumed upon admission.? Patient apparently has not been feeling well since Monday.? Although during my evaluation this morning the patient reported that he would like to go however he is COVID positive with elevated LFTs and increased generalized weakness.? PT and OT will follow the patient for further evaluation.? Patient denies any recent falls or head injury.? His daughter reported that he did quit taking his carbidopa levodopa approximately 2 days ago because he was not having any improvement.? While in the emergency department labs and imaging were obtained.? WBC 3.3, hemoglobin 15.3, hematocrit 47.4, platelet 133 normal INR and a sodium of 135, potassium 4.0, BUN 16 and creatinine of 0.9 GFR greater than 60.? UA revealed 2+ blood and 21-50 rbc's negative nitrite.? An ABG was performed which revealed hypoxia, pH 7.4, pCO2 36.4, PO2 65.6 and a bicarb of 22.5.? CTA of the chest ruled out a pulmonary embolism but did have an incidental finding of subsegmental atelectatic changes with no focal airspace consolidation.? Trace pericardial effusion.? Chest x-ray was is not reveal acute cardiopulmonary abnormality.? EKG sinus rhythm normal rate at 73 with right bundle-branch block.? Patient was admitted for dehydration, COVID-19 and transaminitis.? He will be started on medications to alleviate symptoms and his home medications. During the patient's hospitalization he did not additional oxygen or significant interventions. Patient will be discharged home with follow up with his pcp. Status at Discharge Functional status at discharge: uses cane/walker Overall status at discharge: patient is back to baseline Time Spent with Patient Time attestation: Total time spent providing and/or coordinating discharge services: Time spent: Less than 30 minutes Exam Narrative: General:
[2021-09-19] MEDS: amLODIPine BESYLATE 5 MG TABLET PO (09:12)
[2021-09-19] MEDS: calcium polycarbophiL 625 MG TABLET 1250 MG PO (09:12)
[2021-09-19] MEDS: ASPIRIN 81 MG ENTERIC TABLET PO (09:12)
[2021-09-19] MEDS: VITAMIN B COMPLEX CAPSULE 1 CAP PO (09:13)
[2021-09-19] MEDS: OMEGA 3 POLYUNSAT FATTY ACIDS 1 GM CAP PO (09:13)
[2021-09-19] MEDS: GABAPENTIN 100 MG CAPSULE PO (09:13)
[2021-09-19] MEDS: CARBIDOPA/LEVODOPA 25/100 MG CR TABLET 1 TABLET PO (09:13)
[2021-09-19 10:00] VITALS: BP 122/59; PULSE 57; RESP 20; TEMP 36.6; O2SAT 98
== END 2021-09-19 13:20 | disposition home health service (06) ==
LOC: ANHED 20:44 → ANH3MED 09-18 03:09
PROVIDERS: Emergency Medicine; Admitting Provider Internal Medicine; Emergency Provider General Practice; PCP Internal Medicine; Visit Provider Nurse Practitioner Family
DX: E86.0 Dehydration (principal); R53.1 Weakness; U07.1 COVID-19; R74.01 Elevation of levels of liver transaminase levels; I10 Essential (primary) hypertension; G62.9 Polyneuropathy, unspecified; Z79.82 Long term (current) use of aspirin; G20 Parkinson's disease
CPT/HCPCS: 36415; 36600; 71045; 71046; 71275; 80048; 80053; 80074; 80076; 81001; 82140; 82375; 82550; 82565; 82805; 83050; 84460; 85025; 85380; 85610; 85730; 93005; 96361; 96365; 97161; 97165; 99285; A9270; C9803; G0378; J0248; J7030; Q9967; U0003; U0005

== ENCOUNTER 2022-11-01 08:29 | Emergency (ER) | payer MEDICARE, SELFPAY ==
[2022-11-01 08:30] VITALS: BP 128/64; PULSE 104; RESP 16; TEMP 36.6; O2SAT 99
[2022-11-01 09:26] LABS: Basophils Percent Auto 0.5 % (0.2-1.2); Eosinophils Absolute Auto 0.1 K/mm3 (0-0.3); Eosinophils Percent Auto 1.1 % (0-4.4); Hematocrit 46.7 % (42.0-52.0); Immature Granulocyte Absolute 0.04 K/mm3 (0.00-0.031); Immature Granulocyte Percent A 0.5 % (0-0.5); Lymphocytes Absolute Auto 1.14 K/mm3 (0.9-3.2); Lymphocytes Percent Auto 15.6 % (18.3-44.2); Mean Corpuscular HGB Conc 32.1 g/dl (32-36); Mean Corpuscular Hemoglobin 29.5 pg (26-34); Mean Corpuscular Volume 91.7 fl (80-100); Mean Platelet Volume 8.6 fl (7.4-10.4); Monocytes Absolute Auto 0.8 K/mm3 (0.1-0.6); Neutrophils Absolute Auto 5.2 K/mm3 (1.3-6.7); Neutrophils Percent Auto 71.3 % (45.5-73.1); Platelet Count Result 196 k/mm3 (150-375); Red Blood Count 5.09 M/mm3 (4.6-6.20); Red Cell Distribution Width 13.9 % (11.5-14.5); White Blood Count 7.3 K/mm3 (4.5-10.0)
[2022-11-01 09:29] VITALS: BP 145/96; PULSE 80; RESP 18; O2SAT 93
[2022-11-01 09:35] LABS: Anion Gap 6 mmol/L (8-16); Blood Urea Nitrogen 20 mg/dL (9-20); Calcium 8.8 mg/dL (8.4-10.2); Carbon Dioxide 32 mmol/L (22-30); Chloride 102 mmol/L (98-107); Estimated CRCL calculation 60 ml/min; Estimated Glomerular Filt Rate > 60; Glucose 116 mg/dL (65-110); Potassium 4.1 mmol/L (3.4-5.0); Sodium 140 mmol/L (137-145)
--- NOTE | 2022-11-01 09:50 | ED.WOUNDLAC ---
HPI - Wound/Laceration General Chief Complaint: Wound/Laceration Stated Complaint: bed sores on back side Time Seen by Provider: 11/01/22 08:42 History of Present Illness HPI narrative: Patient lives alone in independently and would like to keep it that way, however he has been having a rash with flaking skin that he first noted on his left arm, which then spread to his lower abdomen/belt line and then to his buttocks, to the point where now he has pain every time he tries to pull on and off his pants. Related Data Home Medications Medication Instructions Recorded Confirmed omega-3 fatty acids-fish oil 684 1 cap PO DAILY 04/30/20 09/20/22 mg-1,200 mg capsule,delayed release aspirin 81 mg tablet,delayed 81 mg PO BID 09/18/21 09/20/22 release vitamin B complex (B 1 tablet PO DAILY 09/18/21 09/20/22 Complex-Vitamin B12 tablet) carbidopa 25 mg-levodopa 100 mg 1 tablet PO TID 03/15/22 09/20/22 tablet Allergies Allergy/AdvReac Type Severity Reaction Status Date / Time No Known Allergies Allergy Unknown Verified 11/01/22 09:26 NKFA Allergy Unknown Unknown Uncoded 11/01/22 09:26 Review of Systems Review of Systems: CONST: No fever. HEENT: No sore throat C/V: No chest pain RESP: No cough GI: No abdominal pain : No dysuria. M/S: No joint pain. SKIN: Irritated and slightly painful skin rash bilateral buttocks, left arm, beltline NEURO: [No headache or focal numbness or weakness] PSYCH: [No depression] [facility] Past Medical History Medical History Hypertension Surgical History Surgical History History of ankle surgery ORIF left ankle S/P ORIF (open reduction internal fixation) fracture Left ankle Status post surgical removal of malignant neoplasm of skin Family History Family History Sibling Family history of diabetes mellitus in first degree relative Mother Diabetes mellitus Hypertension Father Sudden Social History Social History Social History: The patient is living home alone. He is . He does not have a durable power immigration attorney for healthcare. The patient is retired from [employer]. He is a lifelong nonsmoker. He does not use any alcohol or illicit drugs. The patient had 1 daughter and no other children Smoking status: Never smoker Second hand tobacco smoke exposure: No Alcohol intake: former Substance use: never Substance use type: does not use Lack of Transportation: No Lack of Food: Never True Current Housing: I Have Housing Concerned About Future Housing: No Difficulty Paying Gas/Electric Bills: No Difficulty Paying for Meds: No Currently Unemployed: No Education: Grade School Difficulty w/ Childcare or Family Care: No Living arrangements: with family Occupation/Education: retired Gender identity (if verbalized by the patient): Male Sexual Orientation (if Verbalized by the Patient): Straight or Heterosexual Spiritual care concerns: No Exam Narrative: EXAMINATION OF ORGAN SYSTEMS/BODY AREAS: Constitutional: Vital signs per nursing GENERAL:[No acute distress, non-toxic appearing.] HEAD: Normal with no signs of head trauma. EYES: EOMI, conjunctiva normal ENT: Hearing grossly intact LUNGS: Nonlabored breathing. HEART: [Regular rate and rhythm] ABD: [Soft], [nontender to palpation] EXT: Normal range of motion with some shakiness SKIN: Erythematous keratotic rash bilateral buttocks, left arm, beltline. On buttocks there is some slight ulceration but very superficial NEURO: [Alert and oriented x 3. No gross focal sensory or strength deficits.] PSYCH: Normal affect Course Vital Signs Vital signs: Vital Signs Temperature 97.9 F 11/01/22 08:30 Pulse Rate 104 H 11/01/22 08:30 Respiratory Rate 16 10/15
[2022-11-01] MEDS: MICONAZOLE NITRATE 2% CREAM 30 GM TUBE 1 APPLIC TOPICAL (10:17)
--- NOTE | 2022-11-01 10:23 | PCCCNOTE ---
Met with pt regarding dsicharge plans and he states he lives at home alone and is independent in his daily life. He has some wounds on his buttocks and would benefit from some usp assessments and wound care at home. Pt states he has had [facility] and per Sarahy, parts specialist, they can accept pt and make first visit on 11/03/22. Pt is agreeable to this discharge plan.
[2022-11-01 10:53] VITALS: BP 132/81; PULSE 79; RESP 18; O2SAT 95
== END 2022-11-01 10:54 | disposition home or self-care (01) ==
PROVIDERS: Emergency Provider Emergency Medicine; PCP Internal Medicine
DX: B35.4 Tinea corporis (principal); I10 Essential (primary) hypertension; G20 Parkinson's disease; Z85.828 Personal history of other malignant neoplasm of skin; Z79.82 Long term (current) use of aspirin
CPT/HCPCS: 36415; 80048; 85025; 99283; A9270

== ENCOUNTER 2023-09-12 18:38 | Inpatient (IN) | payer MEDICARE, SELFPAY ==
--- NOTE | ~2023-09-12 | XR_ITS ---
EXAMINATION: XR chest 1V portable Exam Date/Time: 09/12/2023 19:05 CDT HISTORY: weakness IN B/L UPPER AND LOWER EXTREMITIES Comparison: 09/19/2021. RESULT: Lines, tubes, and devices: None. Lungs and pleura: Segmental left and subsegmental right basilar airspace disease. Minimal bilateral costophrenic angle blunting. Cardiomediastinal silhouette: Stable. Other: No acute osseous or upper abdominal finding. IMPRESSION: Segmental left and subsegmental right atelectasis/consolidation. Possible small bilateral effusions. Reviewed, dictated and finalized at location K.
--- NOTE | ~2023-09-12 | CT_ITS ---
EXAMINATION: CT brain wo con DATE: 09/12/2023 20:43 INDICATION: trauma . TECHNIQUE: Computed tomography (CT) of the head was performed without intravenous contrast. The mA wa s adjusted according to patient size. Iterative reconstruction technique was employed. The dose-lengt h product was 681.00 mGy-cm. Initial coronal and sagittal reformats were nondiagnostic, which delayed the final read. COMPARISON: None. FINDINGS: No acute intracranial hemorrhage or extra-axial fluid collection. No hydrocephalus, mass, or herniation. No acute ischemic infarct. Unremarkable dural venous sinus attenuation. No acute osseous abnormality. The aerated spaces are clear. Mild atrophy and chronic white matter change. Atherosclerotic intracranial calcification. Bilateral l ens replacements. IMPRESSION: No acute intracranial process. Reviewed, dictated and finalized at location K.
--- NOTE | 2023-09-12 18:39 | ECG_ITS ---
SEE SCANNED COPY FOR CONFIRMED REPORT MTDD
[2023-09-12 18:42] VITALS: BP 127/61; PULSE 93; RESP 16; TEMP 36.6; O2SAT 97
[2023-09-12 19:20] VITALS: BP 118/65; PULSE 91; RESP 27; O2SAT 96
[2023-09-12 19:25] LABS: Basophils Percent Auto 0.2 % (0.2-1.2); Hematocrit 44.6 % (42.0-52.0); Immature Granulocyte Absolute 0.09 K/mm3 (0.00-0.031); Immature Granulocyte Percent A 0.8 % (0-0.5); Lymphocytes Absolute Auto 0.38 K/mm3 (0.9-3.2); Lymphocytes Percent Auto 3.2 % (18.3-44.2); Mean Corpuscular HGB Conc 33.6 g/dl (32-36); Mean Corpuscular Hemoglobin 30.5 pg (26-34); Mean Corpuscular Volume 90.8 fl (80-100); Mean Platelet Volume 8.8 fl (7.4-10.4); Monocytes Absolute Auto 1.6 K/mm3 (0.1-0.6); Monocytes Percent Auto 13.3 % (2.6-8.5); Neutrophils Absolute Auto 9.7 K/mm3 (1.3-6.7); Neutrophils Percent Auto 82.5 % (45.5-73.1); Platelet Count Result 190 k/mm3 (150-375); Red Blood Count 4.91 M/mm3 (4.6-6.20); Red Cell Distribution Width 13.5 % (11.5-14.5); White Blood Count 11.8 K/mm3 (4.5-10.0)
--- NOTE | 2023-09-12 19:25 | ED.WEAKNESS ---
HPI - Weakness General Chief complaint: Weakness <Maira Marie MD - Last Filed: 09/12/23 23:35> Stated complaint: WEAKNESS, MULTIPLE FALLS, <Maira Marie MD - Last Filed: 09/12/23 23:35> Time Seen by Provider: 09/12/23 18:40 <Maira Marie MD - Last Filed: 09/12/23 23:35> History of Present Illness HPI Narrative: Patient is an 88-year-old male with history of Parkinson's, hypertension here with generalized weakness. Patient states that yesterday evening around 7:00 p.m. he laid down on the floor mat. Typically takes naps on the floor. About 2 hours later he tried to get up and he was unable to. He states that he laid on the floor until about 1:00 p.m. today when EMS came to perform a lift assist. He states that he sustained several abrasions and bruising to his left arm as well as bilateral knees due to multiple attempts to get off of the ground. He 1st noted feeling tired and weak yesterday prior to attempting to take this nap. After EMS left today he decided he wanted to take a bath because he was incontinent while lying on the floor last night. His daughter is with him and he noted that he was fine to get in the bathtub himself and take a bath. She advised him to text and when she got out of the bathtub however he never texted her so she went to his house and found him lying on the floor of his bathroom and EMS came and brought him in for evaluation. He denies falling to the ground on either of these episodes. He notes profound weakness. He denies any dysuria, cough, congestion, fever. He is unsure of why he is feeling weak. He denies any chest pain or lightheadedness. He normally is able to get around his home on his own and lives independently. He does state that he has been struggling on and off with a bedsore over his sacral area, he was prescribed a cream by his damper maker in the past which he has been using. His last tetanus shot was about 1 year ago. <Maira Marie MD - Last Filed: 09/12/23 23:35> Related Data Home medications: Home Medications Medication Instructions Recorded Confirmed omega-3 fatty acids-fish oil 684 1 cap PO DAILY 04/30/20 03/28/23 mg-1,200 mg capsule,delayed release vitamin B complex (B 1 tablet PO DAILY 09/18/21 03/28/23 Complex-Vitamin B12 tablet) carbidopa 25 mg-levodopa 100 mg 1 tablet PO TID 03/15/22 03/28/23 tablet aspirin 81 mg tablet,delayed 81 mg PO DAILY 11/08/22 03/28/23 release <Maira Marie MD - Last Filed: 09/12/23 23:35> Allergies/Adverse reactions: Allergies Allergy/AdvReac Type Severity Reaction Status Date / Time gabapentin [From Gabarone] Allergy Mild Rash Verified 03/28/23 07:13 <Maira Marie MD - Last Filed: 09/12/23 23:35> Review of Systems Review of Systems: All systems reviewed & are unremarkable except as noted in HPI and below <Maira Marie MD - Last Filed: 09/12/23 23:35> [facility] Past Medical History Medical History: Medical History Hypertension <Maira Marie MD - Last Filed: 09/12/23 23:35> Surgical History Surgical History: Surgical History History of ankle surgery ORIF left ankle S/P ORIF (open reduction internal fixation) fracture Left ankle Status post surgical removal of malignant neoplasm of skin <Maira Marie MD - Last Filed: 09/12/23 23:35> Family History Family History: Family History Sibling Family history of diabetes mellitus in first degree relative Mother Diabetes mellitus Hypertension Father Sudden <Maira Marie MD - Last Filed: 09/12/23 23:35> Social History Social History: Social History Social History: The patient is living home alone. He is . He does not have a durable power regulatory attorney for healthcare. The patient is re
[2023-09-12 19:35] LABS: Alanine Aminotransferase 50 U/L (6-50); Alkaline Phosphatase 73 U/L (38-126); Anion Gap 7 mmol/L (4-12); Aspartate Amino Transferase 269 U/L (17-59); Bilirubin,Total 1.1 mg/dL (0.2-1.3); Blood Urea Nitrogen 24 mg/dL (9-20); Calcium 8.4 mg/dL (8.4-10.2); Carbon Dioxide 23 mmol/L (22-30); Chloride 109 mmol/L (98-107); Estimated CRCL calculation 47 ml/min; Estimated Glomerular Filt Rate > 60; Glucose 109 mg/dL (65-110); Sodium 139 mmol/L (137-145)
[2023-09-12 20:00] LABS: Troponin I 0.149 ng/mL (0.000-0.034)
[2023-09-12 20:38] LABS: Lactic Acid Reflex 2.3 mmol/L (0.7-2.0)
[2023-09-12 20:38] LABS: Lipase 47 U/L (23-300)
[2023-09-12 20:43] VITALS: BP 118/71; PULSE 87; RESP 28; O2SAT 96
[2023-09-12 21:09] LABS: Creatine Kinase 12075 U/L (55-170)
[2023-09-12] MEDS: LACTATED RINGERS 1,000 ML 999 ML IV CONT (21:25)
[2023-09-12 21:30] LABS: Influenza A QL RT-PCR Negative (Negative); Influenza B QL RT-PCR Negative (Negative); RSV RNA, RT-PCR Negative (Negative); SARS-CoV-2 RNA PCR Negative (Negative)
[2023-09-12 22:22] LABS: Appearance Urine Cloudy (Clear); Bacteria Urine None Seen /hpf; Bilirubin Urine 1+ (Negative); Blood Urine 3+ (Negative); Budding Yeast Urine Present /hpf; Color Urine Dark Yellow (Yellow); Glucose Urine UA Negative (Negative); Hyaline Casts Urine Present /lpf; Ketones Urine 1+ mg/dL (Negative); Leukocyte Esterase Ur Trace LEU/UL (Negative); Need Manual Microscopic Reviewed; Nitrate Urine Negative (Negative); Protein Urine 2+ mg/dL (Negative); RBC Urine 21-50 /hpf (0-2); Specific Grav Ur 1.023 (1.001-1.035); Squamous Epithelial Cell Urine None Seen /hpf (Few); WBC Urine 0-5 /hpf (0-3)
[2023-09-12 22:23] LABS: Add Urine Microscopic? YES
[2023-09-12 23:00] VITALS: BP 110/67; PULSE 93; RESP 18; O2SAT 93
[2023-09-12 23:09] LABS: Troponin I 0.157 ng/mL (0.000-0.034)
[2023-09-12 23:27] LABS: Reflex Lactic Acid Yes or No Add Lactic
[2023-09-12] MEDS: SODIUM CHLORIDE 0.9% IV 1,000 ML 150 ML IV CONT (23:50)
[2023-09-13] VITALS (16 sets, daily range): BP systolic 114–141; BP diastolic 54–88; PULSE 52–98; RESP 12–19; TEMP 36.2–37.3; O2SAT 92–100; BMI 30.7; BMI 30.9
[2023-09-13] LABS: Lactic Acid 1.3 mmol/L (0.7-2.0)
[2023-09-13] MEDS: LACTATED RINGERS 1,000 ML 150 ML IV CONT ×3 (01:32→22:13)
[2023-09-13 02:05] LABS: Creatine Kinase 13455 U/L (55-170)
--- NOTE | 2023-09-13 02:45 | ADMGEN ---
This patient, Saad Norton, was admitted to IMU Room 202-01. Patient/family oriented to hospital policies and general routines including ID bracelet, bed and alarms, visiting hours, pain management, procedures, bathroom and other care routines, personal items, smoking policy, room service/diet, and visiting hours. Information on how to activate the Rapid Response Team has been discussed. Patient/Family are encouraged to report perceived risks to care and to ask questions if they do not understand what they are told or what they should do.
[2023-09-13 03:51] LABS: Basophils Percent Auto 0.2 % (0.2-1.2); Eosinophils Percent Auto 0.1 % (0-4.4); Hematocrit 44.6 % (42.0-52.0); Hemoglobin 14.4 g/dL (14.0-18.0); Immature Granulocyte Absolute 0.05 K/mm3 (0.00-0.031); Immature Granulocyte Percent A 0.5 % (0-0.5); Lymphocytes Absolute Auto 1.12 K/mm3 (0.9-3.2); Lymphocytes Percent Auto 10.8 % (18.3-44.2); Mean Corpuscular HGB Conc 32.3 g/dl (32-36); Mean Corpuscular Hemoglobin 29.9 pg (26-34); Mean Corpuscular Volume 92.7 fl (80-100); Mean Platelet Volume 8.8 fl (7.4-10.4); Monocytes Absolute Auto 1.4 K/mm3 (0.1-0.6); Monocytes Percent Auto 13.8 % (2.6-8.5); Neutrophils Absolute Auto 7.7 K/mm3 (1.3-6.7); Neutrophils Percent Auto 74.6 % (45.5-73.1); Platelet Count Result 169 k/mm3 (150-375); Red Blood Count 4.81 M/mm3 (4.6-6.20); Red Cell Distribution Width 13.4 % (11.5-14.5); White Blood Count 10.3 K/mm3 (4.5-10.0)
[2023-09-13 04:03] LABS: Alanine Aminotransferase 90 U/L (6-50); Albumin Level 3.6 g/dL (3.5-5.1); Alkaline Phosphatase 69 U/L (38-126); Anion Gap 4 mmol/L (4-12); Aspartate Amino Transferase 426 U/L (17-59); Bilirubin,Total 0.7 mg/dL (0.2-1.3); Blood Urea Nitrogen 22 mg/dL (9-20); Calcium 8.2 mg/dL (8.4-10.2); Carbon Dioxide 28 mmol/L (22-30); Chloride 107 mmol/L (98-107); Estimated CRCL calculation 52 ml/min; Estimated Glomerular Filt Rate > 60; Glucose 80 mg/dL (65-110); Potassium 3.3 mmol/L (3.4-5.0); Sodium 139 mmol/L (137-145)
[2023-09-13 04:20] LABS: Creatine Kinase > 16000 U/L (55-170)
[2023-09-13 09:10] LABS: Magnesium 1.9 mg/dL (1.6-2.3); Phosphorus 3.2 mg/dL (2.5-4.5)
[2023-09-13] MEDS: POTASSIUM CHLORIDE INJ 40 MEQ in SODIUM CHLORIDE 0.9% IV 500 ML 130 MEQ IVPB (09:35)
--- NOTE | 2023-09-13 11:41 | PM.IMHP ---
H&P: HPI History of Present Illness Date/Time: 09/13/23 11:41 Chief Complaint: Patient admitted with weakness in both upper and lower extremities secondary to being on the floor for multiple hours Narrative: He is an unfortunate gentleman with obesity, Parkinson's disease and chronic medical issues who lives at his home. He likes to sleep on the floor. He laid on the floor day before yesterday at 7:00 p.m. and was unable to get up. He laid yesterday when EMS came and performed a lift assist. He has several abrasions and bruising to his left arm and bilateral knees as he tried multiple times to get off the ground. After this episode, he took a nap and stayed at home as he did not want to come to the ER for evaluation. After EMS left, he went to take a bath as he was incontinent and daughter asked him to call her after the bath which he never did. EMS was called again, who broke the door as the front door was bolted from inside, they went in and found him lying naked on the floor unable to get up. He was complaining of weakness in both upper and lower extremities and having tremors secondary to his Parkinson's disease. He was brought to the ER for evaluation, workup was done which showed severe rhabdomyolysis and dehydration. Patient given aggressive IV hydration and is being admitted for IV hydration, medical management, close monitoring and further work up. Review of Systems Review of Systems: 14 systems were reviewed with pertinent positives and negatives per HPI. Except as documented in the HPI/progress notes, all other systems were reviewed and are negative. All systems reviewed & are unremarkable except as noted in HPI and below PMFSH Past Medical History Medical History Hypertension Surgical History Surgical History History of ankle surgery ORIF left ankle S/P ORIF (open reduction internal fixation) fracture Left ankle Status post surgical removal of malignant neoplasm of skin Family History Family History Sibling Family history of diabetes mellitus in first degree relative Mother Diabetes mellitus Hypertension Father Sudden Social History Social History Social History: The patient is living home alone. He is . He does not have a durable power diesel fleet mechanic for healthcare. The patient is retired from [employer]. He is a lifelong nonsmoker. He does not use any alcohol or illicit drugs. The patient had 1 daughter and no other children Smoking status: Never smoker Second hand tobacco smoke exposure: No Alcohol intake: never Substance use: never Substance use type: does not use Do You Feel Safe in your Home?: Yes Lack of Transportation: No Lack of Food: Never True Current Housing: I Have Housing Concerned About Future Housing: No Difficulty Paying Gas/Electric Bills: No Difficulty Paying for Meds: No Currently Unemployed: No Education: Grade School Difficulty w/ Childcare or Family Care: No Living arrangements: with family Occupation/Education: retired Gender identity (if verbalized by the patient): Male Sexual Orientation (if Verbalized by the Patient): Straight or Heterosexual Spiritual care concerns: No Meds Home Medications and Allergies Home Medications Medication Instructions Recorded Confirmed Type omega-3 fatty acids-fish oil 684 1 cap PO DAILY 04/30/20 09/13/23 History mg-1,200 mg capsule,delayed release vitamin B complex (B 1 tablet PO DAILY 09/18/21 09/13/23 History Complex-Vitamin B12 tablet) carbidopa 25 mg-levodopa 100 mg 2 tablet PO TID 03/15/22 09/13/23 History tablet aspirin 81 mg tablet,delayed 81 mg PO DAILY 11/08/22 09/13/23 History release triamcinolone acetonide 0.1 % 1 applic topical TID #454 grams 11/08/22
[2023-09-13] MEDS: ASPIRIN 81 MG ENTERIC TABLET PO (12:30)
[2023-09-13] MEDS: amLODIPine BESYLATE 5 MG TABLET PO (12:30)
[2023-09-13] MEDS: CARBIDOPA/LEVODOPA 25/100 MG TABLET 2 TABLET PO ×2 (12:31→17:23)
[2023-09-13] MEDS: TRIAMCINOLONE ACET 0.1% CREAM 15 GM TUBE 1 APPLIC TOPICAL (12:31)
[2023-09-13] MEDS: PRAMIPEXOLE 0.25 MG TABLET PO (20:48)
[2023-09-14] VITALS (16 sets, daily range): BP systolic 107–147; BP diastolic 45–58; PULSE 60–97; RESP 16–20; TEMP 36.4–37; O2SAT 93–98
[2023-09-14] MEDS: LACTATED RINGERS 1,000 ML 150 ML IV CONT (04:55)
[2023-09-14 05:03] LABS: Hematocrit 41.8 % (42.0-52.0); Hemoglobin 13.7 g/dL (14.0-18.0); Mean Corpuscular HGB Conc 32.8 g/dl (32-36); Mean Corpuscular Hemoglobin 30.2 pg (26-34); Mean Corpuscular Volume 92.3 fl (80-100); Mean Platelet Volume 9.1 fl (7.4-10.4); Platelet Count Result 148 k/mm3 (150-375); Red Blood Count 4.53 M/mm3 (4.6-6.20); Red Cell Distribution Width 13.4 % (11.5-14.5); White Blood Count 17.4 K/mm3 (4.5-10.0)
[2023-09-14 05:04] LABS: Alanine Aminotransferase 52 U/L (6-50); Albumin Level 3.1 g/dL (3.5-5.1); Alkaline Phosphatase 67 U/L (38-126); Anion Gap 4 mmol/L (4-12); Aspartate Amino Transferase 336 U/L (17-59); Bilirubin,Total 0.9 mg/dL (0.2-1.3); Blood Urea Nitrogen 20 mg/dL (9-20); Calcium 7.8 mg/dL (8.4-10.2); Carbon Dioxide 26 mmol/L (22-30); Chloride 103 mmol/L (98-107); Estimated CRCL calculation 65 ml/min; Estimated Glomerular Filt Rate > 60; Glucose 109 mg/dL (65-110); Potassium 3.7 mmol/L (3.4-5.0); Sodium 133 mmol/L (137-145)
[2023-09-14 05:23] LABS: Creatine Kinase 7803 U/L (55-170)
[2023-09-14 05:41] LABS: Band Neutrophils Percent 6 % (0-6); Eosinophils Absolute Manual 0.17 K/mm3 (0.02-0.50); Eosinophils Percent Manual 1 % (0-4); Lymphocytes Absolute Manual 0.69 K/mm3 (1.1-4.5); Monocytes Absolute Manual 0.69 K/mm3 (0.1-0.90); Monocytes Percent Manual 4 % (3-9); Neutrophils Absolute Manual 15.83 K/mm3 (1.3-6.7); Neutrophils Percent Manual 85 % (46-73); Platelet Estimate Adequate (Adequate); Total Cells Counted 100
[2023-09-14 05:42] LABS: Anisocytosis 1+; Burr Cells 1+; Schistocytes None Seen
[2023-09-14] MEDS: CARBIDOPA/LEVODOPA 25/100 MG TABLET 2 TABLET PO ×3 (08:55→17:14)
[2023-09-14] MEDS: ENOXAPARIN 40 MG/0.4 ML SYRINGE SUB-Q (08:56)
[2023-09-14] MEDS: amLODIPine BESYLATE 5 MG TABLET PO (08:57)
[2023-09-14] MEDS: OMEGA 3 POLYUNSAT FATTY ACIDS 1 GM CAP PO (08:57)
[2023-09-14] MEDS: VITAMIN B COMPLEX CAPSULE 1 CAP PO (08:57)
[2023-09-14] MEDS: calcium polycarbophiL 625 MG TABLET 1250 MG PO (08:57)
[2023-09-14] MEDS: ASPIRIN 81 MG ENTERIC TABLET PO (08:58)
[2023-09-14] MEDS: FLUCONAZOLE 100 MG TABLET PO (09:13)
[2023-09-14] MEDS: LACTATED RINGERS 1,000 ML 100 ML IV CONT ×2 (12:39→22:24)
--- NOTE | 2023-09-14 17:55 | PC.NURSE ---
Orders for med surg with tele- report given to Katie VEGA pt moved to room 249 vi abed accompanied by staff- personal belongings with p t; Daughter called and notified of transfer
--- NOTE | 2023-09-14 19:00 | PM.IMPN ---
Progress Note: A&P Assessment and Plan (1) Rhabdomyolysis: Qualifiers: Rhabdomyolysis type: non-traumatic Qualified Code(s): M62.82 - Rhabdomyolysis Code(s): M62.82 - Rhabdomyolysis Status: Acute (2) Elevated troponin: Code(s): R79.89 - Other specified abnormal findings of blood chemistry Status: Acute (3) Rash and nonspecific skin eruption: Code(s): R21 - Rash and other nonspecific skin eruption Status: Acute (4) Pressure ulcer: Qualifiers: Pressure injury location: buttock Pressure injury stage: stage 1 Laterality: unspecified laterality Qualified Code(s): L89.301 - Pressure ulcer of unspecified buttock, stage 1 Code(s): L89.90 - Pressure ulcer of unspecified site, unspecified stage Status: Acute (5) Parkinson disease: Qualifiers: Dyskinesia presence: unspecified whether dyskinesia Fluctuating manifestations: unspecified whether manifestations fluctuate Qualified Code(s): G20.A1 - Parkinson's disease without dyskinesia, without mention of fluctuations Code(s): G20 - Parkinson's disease Status: Acute (6) Neuropathy: Code(s): G62.9 - Polyneuropathy, unspecified Status: Acute (7) Dehydration: Code(s): E86.0 - Dehydration Status: Acute (8) Transaminitis: Code(s): R74.01 - Elevation of levels of liver transaminase levels Status: Acute (9) Hypovitaminosis D: Code(s): E55.9 - Vitamin D deficiency, unspecified Status: Acute (10) BPH (benign prostatic hyperplasia): Qualifiers: Lower urinary tract symptom presence: symptoms absent Qualified Code(s): N40.0 - Benign prostatic hyperplasia without lower urinary tract symptoms Code(s): N40.0 - Benign prostatic hyperplasia without lower urinary tract symptoms Status: Acute (11) Obesity (BMI 30.0-34.9): Code(s): E66.9 - Obesity, unspecified Status: Acute (12) Atrial fibrillation: Qualifiers: Atrial fibrillation type: unspecified Qualified Code(s): I48.91 - Unspecified atrial fibrillation Code(s): I48.91 - Unspecified atrial fibrillation Status: Acute (13) Essential (primary) hypertension: Code(s): I10 - Essential (primary) hypertension Status: Acute (14) Mixed hyperlipidemia: Code(s): E78.2 - Mixed hyperlipidemia Status: Acute (15) Resting tremor: Code(s): G25.2 - Other specified forms of tremor Status: Acute Plan Admit patient to IMU under full inpatient status Patient has severe rhabdomyolysis with CPK level greater than 16,000 on admission Patient received 1 L IV Ringer's lactate bolus in the ER Patient started on Ringer's lactate at 150 cc an hour in the ER which I cut down to 100 cc/hour CPK level is slowly downtrending >47960 -> 7803 Strict input and output monitoring Patient has minimally elevated troponins likely due to myocardial demand ischemia caused by severe rhabdomyolysis Patient does not complain of any chest pain Patient also has mild elevation of LFTs likely secondary to severe rhabdomyolysis as well which are slowly downtrending Patient also has the UTI and yeast cystitis confirmed by urinalysis Patient started on IV Rocephin 1 g daily and Diflucan 100 mg daily Follow-up on urine cultures Continue with parkinsonism and other chronic meds PT/OT evaluation ordered ? Patient seen and examined at bedside during my morning rounds ? Collaborated with patient's nurse at the bedside in detail and addressed all concerns ? Labs, electrolytes, radiology, investigations and test results reviewed ? Consult/Nursing/Ancilliary notes on the chart reviewed and appreciated ? Spoke with patient/daughter at the bedside and answered all the questions that they had Repeat labs in a.m. Electrolyte replacement as per protocol. Patient will be monitored very closely on the floor. Further recommendations as per the hospital co
[2023-09-14] MEDS: PRAMIPEXOLE 0.25 MG TABLET PO (20:35)
[2023-09-15] VITALS (12 sets, daily range): BP systolic 116–159; BP diastolic 48–87; PULSE 55–76; RESP 18; TEMP 36.1–37.8; O2SAT 90–98
[2023-09-15 05:22] LABS: Basophils Percent Auto 0.4 % (0.2-1.2); Eosinophils Absolute Auto 0.1 K/mm3 (0-0.3); Eosinophils Percent Auto 0.6 % (0-4.4); Hematocrit 39.2 % (42.0-52.0); Hemoglobin 12.8 g/dL (14.0-18.0); Immature Granulocyte Absolute 0.07 K/mm3 (0.00-0.031); Immature Granulocyte Percent A 0.6 % (0-0.5); Lymphocytes Percent Auto 8.9 % (18.3-44.2); Mean Corpuscular HGB Conc 32.7 g/dl (32-36); Mean Corpuscular Volume 91.8 fl (80-100); Mean Platelet Volume 9.2 fl (7.4-10.4); Monocytes Absolute Auto 1.1 K/mm3 (0.1-0.6); Monocytes Percent Auto 10.1 % (2.6-8.5); Neutrophils Absolute Auto 8.9 K/mm3 (1.3-6.7); Neutrophils Percent Auto 79.4 % (45.5-73.1); Platelet Count Result 127 k/mm3 (150-375); Red Blood Count 4.27 M/mm3 (4.6-6.20); Red Cell Distribution Width 13.4 % (11.5-14.5); White Blood Count 11.2 K/mm3 (4.5-10.0)
[2023-09-15 06:03] LABS: Alanine Aminotransferase 55 U/L (6-50); Alkaline Phosphatase 66 U/L (38-126); Anion Gap 2 mmol/L (4-12); Aspartate Amino Transferase 165 U/L (17-59); Bilirubin,Total 0.9 mg/dL (0.2-1.3); Blood Urea Nitrogen 18 mg/dL (9-20); Calcium 7.9 mg/dL (8.4-10.2); Carbon Dioxide 30 mmol/L (22-30); Chloride 102 mmol/L (98-107); Estimated CRCL calculation 75 ml/min; Estimated Glomerular Filt Rate > 60; Glucose 101 mg/dL (65-110); Potassium 3.4 mmol/L (3.4-5.0); Sodium 134 mmol/L (137-145)
[2023-09-15 06:51] LABS: Creatine Kinase 2410 U/L (55-170)
[2023-09-15] MEDS: CARBIDOPA/LEVODOPA 25/100 MG TABLET 2 TABLET PO ×3 (08:58→16:57)
[2023-09-15] MEDS: VITAMIN B COMPLEX CAPSULE 1 CAP PO (08:58)
[2023-09-15] MEDS: OMEGA 3 POLYUNSAT FATTY ACIDS 1 GM CAP PO (08:58)
[2023-09-15] MEDS: calcium polycarbophiL 625 MG TABLET 1250 MG PO (08:58)
[2023-09-15] MEDS: ASPIRIN 81 MG ENTERIC TABLET PO (08:59)
[2023-09-15] MEDS: amLODIPine BESYLATE 5 MG TABLET PO (08:59)
[2023-09-15] MEDS: LACTATED RINGERS 1,000 ML 100 ML IV CONT (09:00)
[2023-09-15] MEDS: FLUCONAZOLE 100 MG TABLET PO (09:00)
[2023-09-15] MEDS: ENOXAPARIN 40 MG/0.4 ML SYRINGE SUB-Q (09:00)
--- NOTE | 2023-09-15 16:00 | PM.IMPN ---
Progress Note: A&P Assessment and Plan (1) Rhabdomyolysis: Qualifiers: Rhabdomyolysis type: non-traumatic Qualified Code(s): M62.82 - Rhabdomyolysis Code(s): M62.82 - Rhabdomyolysis Status: Acute (2) Elevated troponin: Code(s): R79.89 - Other specified abnormal findings of blood chemistry Status: Acute (3) Rash and nonspecific skin eruption: Code(s): R21 - Rash and other nonspecific skin eruption Status: Acute (4) Pressure ulcer: Qualifiers: Pressure injury location: buttock Pressure injury stage: stage 1 Laterality: unspecified laterality Qualified Code(s): L89.301 - Pressure ulcer of unspecified buttock, stage 1 Code(s): L89.90 - Pressure ulcer of unspecified site, unspecified stage Status: Acute (5) Parkinson disease: Qualifiers: Dyskinesia presence: unspecified whether dyskinesia Fluctuating manifestations: unspecified whether manifestations fluctuate Qualified Code(s): G20.A1 - Parkinson's disease without dyskinesia, without mention of fluctuations Code(s): G20 - Parkinson's disease Status: Acute (6) Neuropathy: Code(s): G62.9 - Polyneuropathy, unspecified Status: Acute (7) Dehydration: Code(s): E86.0 - Dehydration Status: Acute (8) Transaminitis: Code(s): R74.01 - Elevation of levels of liver transaminase levels Status: Acute (9) Hypovitaminosis D: Code(s): E55.9 - Vitamin D deficiency, unspecified Status: Acute (10) BPH (benign prostatic hyperplasia): Qualifiers: Lower urinary tract symptom presence: symptoms absent Qualified Code(s): N40.0 - Benign prostatic hyperplasia without lower urinary tract symptoms Code(s): N40.0 - Benign prostatic hyperplasia without lower urinary tract symptoms Status: Acute (11) Obesity (BMI 30.0-34.9): Code(s): E66.9 - Obesity, unspecified Status: Acute (12) Atrial fibrillation: Qualifiers: Atrial fibrillation type: unspecified Qualified Code(s): I48.91 - Unspecified atrial fibrillation Code(s): I48.91 - Unspecified atrial fibrillation Status: Acute (13) Essential (primary) hypertension: Code(s): I10 - Essential (primary) hypertension Status: Acute (14) Mixed hyperlipidemia: Code(s): E78.2 - Mixed hyperlipidemia Status: Acute (15) Resting tremor: Code(s): G25.2 - Other specified forms of tremor Status: Acute Plan Admit patient to IMU under full inpatient status Patient has severe rhabdomyolysis with CPK level greater than 16,000 on admission Patient received 1 L IV Ringer's lactate bolus in the ER Patient started on Ringer's lactate at 150 cc an hour in the ER which has been cut down to 100 cc/hour and now 75 cc/hour CPK level is slowly downtrending >69319 -> 2410 Strict input and output monitoring Patient has minimally elevated troponins likely due to myocardial demand ischemia caused by severe rhabdomyolysis Patient does not complain of any chest pain Patient also has mild elevation of LFTs likely secondary to severe rhabdomyolysis as well which are slowly downtrending Patient also has the UTI and yeast cystitis confirmed by urinalysis Patient started on IV Rocephin 1 g daily and Diflucan 100 mg daily WBC continues to downtrend 17.4 -> 11.2 Follow-up on urine cultures Continue with parkinsonism and other chronic meds PT/OT evaluation ordered ? Patient seen and examined at bedside during my morning rounds ? Collaborated with patient's nurse at the bedside in detail and addressed all concerns ? Labs, electrolytes, radiology, investigations and test results reviewed ? Consult/Nursing/Ancilliary notes on the chart reviewed and appreciated ? Spoke with patient/daughter at the bedside and answered all the questions that they had Repeat labs in a.m. Electrolyte replacement as per protocol. Patient will be monitored very c
[2023-09-15] MEDS: PRAMIPEXOLE 0.25 MG TABLET PO (20:30)
[2023-09-15] MEDS: LACTATED RINGERS 1,000 ML 75 ML IV CONT (21:27)
[2023-09-16 00:01] VITALS: PULSE 60
[2023-09-16 04:00] VITALS: BP 133/99; PULSE 65; RESP 18; TEMP 36.8; O2SAT 90
[2023-09-16 04:03] VITALS: PULSE 73
[2023-09-16 05:10] LABS: Basophils Percent Auto 0.3 % (0.2-1.2); Eosinophils Percent Auto 0.3 % (0-4.4); Hematocrit 43.2 % (42.0-52.0); Hemoglobin 14.2 g/dL (14.0-18.0); Immature Granulocyte Absolute 0.05 K/mm3 (0.00-0.031); Immature Granulocyte Percent A 0.7 % (0-0.5); Immature Platelet Fraction Pct 3.4 % (0.9-11.2); Lymphocytes Percent Auto 7.2 % (18.3-44.2); Mean Corpuscular HGB Conc 32.9 g/dl (32-36); Mean Corpuscular Hemoglobin 30.1 pg (26-34); Mean Corpuscular Volume 91.7 fl (80-100); Mean Platelet Volume 9.2 fl (7.4-10.4); Monocytes Absolute Auto 0.5 K/mm3 (0.1-0.6); Monocytes Percent Auto 7.4 % (2.6-8.5); Neutrophils Absolute Auto 5.9 K/mm3 (1.3-6.7); Neutrophils Percent Auto 84.1 % (45.5-73.1); Platelet Count Result 161 k/mm3 (150-375); Red Blood Count 4.71 M/mm3 (4.6-6.20); Red Cell Distribution Width 13.3 % (11.5-14.5)
[2023-09-16 05:22] LABS: Alanine Aminotransferase 69 U/L (6-50); Albumin Level 3.5 g/dL (3.5-5.1); Alkaline Phosphatase 79 U/L (38-126); Anion Gap 2 mmol/L (4-12); Aspartate Amino Transferase 138 U/L (17-59); Bilirubin,Total 0.8 mg/dL (0.2-1.3); Blood Urea Nitrogen 14 mg/dL (9-20); Calcium 8.4 mg/dL (8.4-10.2); Carbon Dioxide 32 mmol/L (22-30); Chloride 99 mmol/L (98-107); Creatine Kinase 948 U/L (55-170); Estimated CRCL calculation 75 ml/min; Estimated Glomerular Filt Rate > 60; Glucose 84 mg/dL (65-110); Potassium 3.7 mmol/L (3.4-5.0); Sodium 133 mmol/L (137-145)
[2023-09-16 08:00] VITALS: PULSE 61
[2023-09-16] MEDS: amLODIPine BESYLATE 5 MG TABLET PO (08:47)
[2023-09-16] MEDS: ASPIRIN 81 MG ENTERIC TABLET PO (08:47)
[2023-09-16] MEDS: calcium polycarbophiL 625 MG TABLET 1250 MG PO (08:47)
[2023-09-16] MEDS: VITAMIN B COMPLEX CAPSULE 1 CAP PO (08:47)
[2023-09-16] MEDS: FLUCONAZOLE 100 MG TABLET PO (08:47)
[2023-09-16] MEDS: OMEGA 3 POLYUNSAT FATTY ACIDS 1 GM CAP PO (08:48)
[2023-09-16] MEDS: CARBIDOPA/LEVODOPA 25/100 MG TABLET 2 TABLET PO ×2 (08:48→13:07)
--- NOTE | 2023-09-16 11:39 | PCPTNOTE ---
Attempted to see patient for PT, however patient refused due to anticipated discharge.
[2023-09-16 11:59] VITALS: BP 136/66; PULSE 70; RESP 20; TEMP 37.2; O2SAT 98
[2023-09-16 12:00] VITALS: PULSE 79
--- NOTE | 2023-09-16 12:51 | PM.DS ---
DS: Admitting Diagnosis Discharge Date 09/16/2023: Admitting Diagnosis (1) Rhabdomyolysis: ?Qualifiers: ?Rhabdomyolysis type:?non-traumatic? Qualified Code(s):?M62.82 - Rhabdomyolysis ?Code(s): M62.82 - Rhabdomyolysis ?Status:?Acute (2) Elevated troponin: ?Code(s): R79.89 - Other specified abnormal findings of blood chemistry ?Status:?Acute (3) Rash and nonspecific skin eruption: ?Code(s): R21 - Rash and other nonspecific skin eruption ?Status:?Acute (4) Pressure ulcer: ?Qualifiers: ?Pressure injury location:?buttock??Pressure injury stage:?stage 1??Laterality:?unspecified laterality? Qualified Code(s):?L89.301 - Pressure ulcer of unspecified buttock, stage 1 ?Code(s): L89.90 - Pressure ulcer of unspecified site, unspecified stage ?Status:?Acute (5) Parkinson disease: ?Qualifiers: ?Dyskinesia presence:?unspecified whether dyskinesia??Fluctuating? manifestations:?unspecified whether manifestations fluctuate? Qualified Code(s):?G20.A1 - Parkinson's disease without dyskinesia, without mention of fluctuations ?Code(s): G20 - Parkinson's disease ?Status:?Acute (6) Neuropathy: ?Code(s): G62.9 - Polyneuropathy, unspecified ?Status:?Acute (7) Dehydration: ?Code(s): E86.0 - Dehydration ?Status:?Acute (8) Transaminitis: ?Code(s): R74.01 - Elevation of levels of liver transaminase levels ?Status:?Acute (9) Neuropathy: ?Code(s): G62.9 - Polyneuropathy, unspecified ?Status:?Acute (10) Hypovitaminosis D: ?Code(s): E55.9 - Vitamin D deficiency, unspecified ?Status:?Acute (11) Parkinsons: ?Code(s): G20 - Parkinson's disease ?Status:?Acute (12) BPH (benign prostatic hyperplasia): ?Qualifiers: ?Lower urinary tract symptom presence:?symptoms absent? Qualified Code(s):?N40.0 - Benign prostatic hyperplasia without lower urinary tract symptoms ?Code(s): N40.0 - Benign prostatic hyperplasia without lower urinary tract symptoms ?Status:?Acute (13) Obesity (BMI 30.0-34.9): ?Code(s): E66.9 - Obesity, unspecified ?Status:?Acute (14) Atrial fibrillation: ?Qualifiers: ?Atrial fibrillation type:?unspecified? Qualified Code(s):?I48.91 - Unspecified atrial fibrillation ?Code(s): I48.91 - Unspecified atrial fibrillation ?Status:?Acute (15) Essential (primary) hypertension: ?Code(s): I10 - Essential (primary) hypertension ?Status:?Acute (16) Mixed hyperlipidemia: ?Code(s): E78.2 - Mixed hyperlipidemia ?Status:?Acute (17) Resting tremor: ?Code(s): G25.2 - Other specified forms of tremor ?Status:?Acute DS: Discharge Diagnosis Discharge Diagnosis (1) Rhabdomyolysis: Qualifiers: Rhabdomyolysis type: non-traumatic Qualified Code(s): M62.82 - Rhabdomyolysis Code(s): M62.82 - Rhabdomyolysis Status: Acute (2) Elevated troponin: Code(s): R79.89 - Other specified abnormal findings of blood chemistry Status: Acute (3) Rash and nonspecific skin eruption: Code(s): R21 - Rash and other nonspecific skin eruption Status: Acute (4) Pressure ulcer: Qualifiers: Pressure injury location: buttock Pressure injury stage: stage 1 Laterality: unspecified laterality Qualified Code(s): L89.301 - Pressure ulcer of unspecified buttock, stage 1 Code(s): L89.90 - Pressure ulcer of unspecified site, unspecified stage Status: Acute (5) Parkinson disease: Qualifiers: Dyskinesia presence: unspecified whether dyskinesia Fluctuating manifestations: unspecified whether manifestations fluctuate Qualified Code(s): G20.A1 - Parkinson's disease without dyskinesia, without mention of fluctuations Code(s): G20 - Parkinson's disease Status: Acute (6) Neuropathy: Code(s): G62.9 - Polyneuropathy, unspecified Status: Acute (7) Dehydration:
--- NOTE | 2023-09-16 15:23 | PC.NURSE ---
Pt leaving via EMS to [facility]. IV and telemetry removed. Belongings sent with pt. Daughter, Josh, notified that pt has left.
== END 2023-09-16 15:20 | DRG 558 ==
LOC: ANHED 09-13 01:11 → ANHIMU 09-13 01:39 → ANH2MED 09-14 17:53
PROVIDERS: Emergency Medicine; Admitting Provider Internal Medicine; Emergency Provider Student in an Organized Health Care Education/Training Program; PCP Nurse Practitioner; Visit Provider Family Medicine
DX: M62.82 Rhabdomyolysis (principal); I24.89 Other forms of acute ischemic heart disease; N39.0 Urinary tract infection, site not specified; L89.322 Pressure ulcer of left buttock, stage 2; B96.20 Unspecified Escherichia coli [E. coli] as the cause of diseases classified elsewhere; E66.9 Obesity, unspecified; E55.9 Vitamin D deficiency, unspecified; E78.2 Mixed hyperlipidemia; E86.0 Dehydration; G20.A1 Parkinson's disease without dyskinesia, without mention of fluctuations; G62.9 Polyneuropathy, unspecified; G25.2 Other specified forms of tremor; I10 Essential (primary) hypertension; I48.91 Unspecified atrial fibrillation; N40.0 Benign prostatic hyperplasia without lower urinary tract symptoms; R79.89 Other specified abnormal findings of blood chemistry; Z68.30 Body mass index [BMI] 30.0-30.9, adult; Z20.822 Contact with and (suspected) exposure to COVID-19; Z79.82 Long term (current) use of aspirin
CPT/HCPCS: 36415; 70450; 71045; 80053; 81001; 82550; 83605; 83690; 83735; 84100; 84484; 85025; 85055; 86140; 87040; 87077; 87086; 87088; 87186; 87637; 93005; 96361; 96374; 97110; 97161; 97166; 97530; 97535; 99285; A9270; G0378; J0696; J1650; J3480; J7030; J7040; J7120

== ENCOUNTER 2023-10-03 09:05 | Outpatient (CLI) | payer MEDICARE, SELFPAY ==
[2023-10-03 10:11] LABS: Appearance Urine Clear (Clear); Bacteria Urine None Seen /hpf; Bilirubin Urine Negative (Negative); Blood Urine Negative (Negative); Color Urine Dark Yellow (Yellow); Glucose Urine UA Negative (Negative); Ketones Urine Negative (Negative); Leukocyte Esterase Ur 1+ LEU/UL (Negative); Nitrate Urine Negative (Negative); Non Pathogenic Casts 0-2; Protein Urine Negative (Negative); RBC Urine 0-2 /hpf (0-2); Specific Grav Ur 1.012 (1.001-1.035); Squamous Epithelial Cell Urine None Seen /hpf (Few); pH Urine 5.5 (5.0-9.0)
[2023-10-03 10:15] LABS: Add Urine Microscopic? YES
[2023-10-03 10:19] LABS: Alanine Aminotransferase 42 U/L (6-50); Alkaline Phosphatase 291 U/L (38-126); Anion Gap 6 mmol/L (4-12); Aspartate Amino Transferase 105 U/L (17-59); Bilirubin,Total 0.9 mg/dL (0.2-1.3); Blood Urea Nitrogen 17 mg/dL (9-20); Carbon Dioxide 28 mmol/L (22-30); Chloride 102 mmol/L (98-107); Estimated Glomerular Filt Rate > 60; Glucose 89 mg/dL (65-110); Potassium 4.2 mmol/L (3.4-5.0); Sodium 136 mmol/L (137-145)
== END 2023-10-03 09:06 | disposition home or self-care (01) ==
PROVIDERS: PCP Nurse Practitioner; Visit Provider Nurse Practitioner
DX: N39.0 Urinary tract infection, site not specified (principal); R79.89 Other specified abnormal findings of blood chemistry
CPT/HCPCS: 36415; 80053; 81001; 87086

== ENCOUNTER 2023-10-17 07:36 | Outpatient (CLI) | payer MEDICARE, BC, SELFPAY ==
--- NOTE | ~2023-10-17 | US_ITS ---
Limited Abdominal Sonogram: Real-time sonographic imaging of the right upper quadrant was performed. Clinical History: Abnormal blood chemistry findings Findings: The liver appears mildly echogenic, with no evidence of mass lesion or bile duct dilatatio n. Main portal vein demonstrates normal direction of flow. The gallbladder is well distended, and dem onstrates probable small layering gallstones. The common bile duct measures 11 mm. The visualized pa ncreas, aorta, and IVC are unremarkable. Impression: Probable mild fatty infiltration of the liver. Probable small layering gallstones. Dilated common bile duct. Consider MRCP to evaluate for choledocholithiasis, as indicated. Reviewed, dictated and finalized at location . Impression: Probable mild fatty infiltration of the liver. Probable small layering gallstones. Dilated common bile duct. Consider MRCP to evaluate for choledocholithiasis, as indicated.
== END 2023-10-17 07:37 ==
PROVIDERS: PCP Nurse Practitioner; Visit Provider Nurse Practitioner
DX: R79.89 Other specified abnormal findings of blood chemistry (principal)
CPT/HCPCS: 76705

== ENCOUNTER 2024-07-30 14:25 | Emergency (ER) | payer MEDICARE, SELFPAY ==
--- NOTE | ~2024-07-30 | CT_ITS ---
CLINICAL INDICATION: Right lower back pain with decreased urine output for one week. COMPARISON: 04/30/2020. TECHNIQUE: Multiple contiguous axial images of the abdomen and pelvis were performed without the admi nistration of intravenous contrast The dose-length product (DLP) was 788.12 mGy-cm. Automated exposure control and iterative reconstruction technique were employed. FINDINGS/OBSERVATIONS: Visualized lower thorax: The bilateral lung bases are clear. The heart is enlarged, without pericardial effusion. Small hiatal hernia is present. Liver: Interval progression of both intra and extrahepatic biliary ductal dilatation, seen in 2020 (when onl y common bile duct dilatation was present) now both the common bile duct as well as the intrahepatic ducts are dilated. Query the presence of jaundice or elevated transaminases. The liver is not enlarged, and otherwise demonstrates homogeneous attenuation. Soft tissue attenuation is identified within the base of the dilated common bile duct, possibly repre senting cholangiocarcinoma is suspected. Gallbladder and biliary system: The gallbladder is significantly distended, without surrounding inflammatory change. Pancreas: Limited evaluation of the pancreas secondary to the lack of intravenous contrast. No pancreatic ducta l dilatation. Redemonstration of a rounded calcification within the head of the pancreas, unchanged from prior Spleen: Punctate calcifications identified within the splenic parenchyma, suggesting prior granulomat ous disease. The remainder of the spleen otherwise demonstrates homogeneous attenuation and is not enlarged. Kidneys: A 9 mm calculus is identified adjacent to the distal right ureter, felt to be adjacent to rather than within the ureter. No significant hydroureteronephrosis bilaterally Adrenal glands: Unremarkable. Gastrointestinal tract: Significant fecal stasis within the colon. Appendix: The air-filled appendix is of normal caliber (axial series, images 135 through 158). Vasculature: Unremarkable. Lymph nodes: No pathologically enlarged or morphologically suspicious lymph nodes within the retroperitoneum or at the root of the mesentery. Pelvic structures: The bladder is distended, and otherwise unremarkable. The prostate gland is enlarged. Body wall and musculoskeletal: Review degenerative disease within the lumbosacral spine, demonstrating significant progression since 2020 examination with osteophyte formation, disc base narrowing, endplate changes and vacuum phenome non. No lytic or blastic lesions are identified. IMPRESSION: Interval progression of both intra and extrahepatic biliary ductal dilatation since the 2020 examinat ion. Soft tissue attenuation at the base of the common bile duct for which obstructing malignancy is suspe cted. No pancreatic ductal dilatation is appreciated, to account for the lesion at the head of the pancreas , suspected on prior study. The rim calcified focus at the head of the pancreas may be vascular in origin. No obstructive uropathy. Gallbladder dilatation. Progression of degenerative disease within the lumbosacral spine, since prior examination in 2020 Reviewed, dictated and finalized at location A. IMPRESSION: Interval progression of both intra and extrahepatic biliary ductal dilatation s matt the 2020 examination. Soft tissue attenuation at the base of the common bile duct for which obstructi ng malignancy is suspected. No pancreatic ductal dilatation is appreciated, to account for the lesion at th e head of the pancreas, suspected on prior study. The rim calcified focus at the head of the pancreas may be vascular in origin. No obstructive uropathy. Gallbladder dilatation. Progression of degenerative disease within the lumbosacral spine, since prior e xamination in 2020
[2024-07-30 14:29] VITALS: BP 156/66; PULSE 84; RESP 16; TEMP 36.6; O2SAT 96
--- OUTSIDE RECORDS SUMMARY | 2024-07-30 15:33 | XMS_ITS | Encounter Summary ---
Author Organization [facility] Address [address] [facility] [address] [place] [address] Care Team Providers Care Remittance Clerk Name Role Phone Unavailable Primary Care Provider Unavailabl e Encounter Details Date Type Department Care Team (Late st Contact Info) Description 11/10/2022 Lab Requisition 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 DermPath Lab Received: 11/10/2022 04:06 PM Pathologist: Lilliam Odonnell MD Specimen: Skin, right knee 11:06 AM CDT DERMATOPATHOLOGY LABORATORY Final Diagnosis Specimen A. 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 The specimen consists of a punch biopsy measuring 4x4x5 mm. Jar 0. 3 11:06 AM [facility][NOTE 3] DERMATOPATHOLOGY LABORATORY Microscopic Description Specimen A. SKIN, right knee: There is psoriasiform hyperplasia of the epidermis with focal parakeratosis and spongiosis. There is a superficial, mainly lymphohistiocytic inflammatory infiltrate with rare eosinophils. Sections show extravasated erythrocytes in the papillary dermis. GMS stain is negative for fungus. IL-36 strongly stains the upper epidermis. IL-36 strongly stains the upper epidermis. See direct immunofluorescence results. COMMENT: The histological differential diagnosis includes early / partially treated psoriasis, which is favored, a chronic eczematous dermatitis and eczematous pigmented purpuric dermatosis. 3 11:06 AM [facility][NOTE 3] DERMATOPATHOLOGY LABORATORY Disclaimer An external and internal positive and negative controls are appropriate for the histochemical, immunohistochemical and immunofluorescence stain(s) in this case (if any), except where stated explicitly. The performance characteristics of the stain(s) cited in this report were developed and its performance characteristic determined by the Dermatopathology Laboratory at [facility], directed by Dr. Ryan Fong. These tests need not be, and therefore are not, approved by the [place] Food and Drug Administration. The tests are used for clinical purposes. Billing Codes Specimen Charges Stain Charges 49838 1 09788 89728 1 1 3 11:06 AM CDT DERMATOPATHOLOGY LABORATORY Embedded Images 3 11:06 AM T DERMATOPATHOLOGY LABORATORY Pathology/Cytolo gy TISSUE SPECIMEN FROM SKIN / Unknown 11/10/2022 11:19 AM CDT 11/10/2022 4:06 PM CDT us Arlin Howe MD LAB - PATHOLOGY/CYTOLOGY ORD ERABLES Final Result DERMATOPATHOLOGY LABORATORY [facility] - Department of Dermatology [address] [phone] documented in this encounter Visit Diagnoses Not on filedocumented in this encounter
--- OUTSIDE RECORDS SUMMARY | 2024-07-30 15:33 | XMS_ITS | Encounter Summary ---
Author Organization [facility] Address [address] [facility] [address] [place] [address] Care Team Providers Care Top Frame Maker Name Role Phone Unavailable Primary Care Provider Unavailabl e Encounter Details Date Type Department Care Team (Late st Contact Info) Description 11/10/2022 Lab Requisition [facility] - DermPath Lab [address] [facility] [place], [place] [address] Arlin Howe MD [address] [facility] [address] [place] [address] Social History Tobacco Use Types Packs/Day Years Used Date Smoking Tobacco: Never Assessed Sex and Gender Information Value Date Recorded Sex Assigned at Not on file 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 Gender Identity Not on file Sexual Orientation Not on file documented as of this encounter Plan of Treatment Not on file documented as of this encounter Procedures Procedure Name Priority Date/Time Associated Diagnosis Comments IMMUNOFLUORESCENT STUDY DERM Routine 11/10/2022 12:00 AM CDT documented in this encounter Results * IMMUNOFLUORESCENT STUDY DERM (11/10/2022 12:00 AM CDT) Case Report Dermatopathol ogy Report Case: [id number] Authorizing Provider: Arlin Howe MD Collected: 11/10/2022 12:00 AM Ordering Location: [facility] DermPath Lab Received: 11/10/2022 04:07 PM Pathologist: Lilliam Odonnell MD Specimen: Skin, right knee 11:08 AM CDT DERMATOPATHOLOGY LABORATORY Final Diagnosis Specimen A. SKIN, right knee: COLLOID BODIES (L98.9) TRACE LINEAR GRANULAR BASEMENT MEMBRANE ZONE POSITIVITY WITH C3 (L98.9) (see fixed tissue results) ([id number]) (see microscopic description and comment) 11:08 AM CDT DERMATOPATHOLOGY LABORATORY Direct Immunofluorescence Report - Specimen A Specimen A IgA IgM IgG C3 CollV Fibrinogen Epidermis Negative Negative Negative Negative Negative Negative Basement Membrane +1 Colloids +1 Colloids Negative Trace Linear Granular 2+ Negative Vessels Negative Negative Negative Negative 2+ Negative Interstitium Negative Negative Negative Negative Negative Non specific 3 11:08 AM T DERMATOPATHOLOGY LABORATORY Clinical History PINK PLAQUES DRUG VS BP VS URTICARIA 3 11:08 AM T DERMATOPATHOLOGY LABORATORY Gross Description Specimen A: Received is one Suraj's media filled container labeled with the patient's name and designated right knee. The specimen consists of a punch biopsy measuring 4x3x6 mm. The specimen is submitted in whole for direct immunofluores cence testing. 3 11:08 AM [facility] DERMATOPATHOLOGY LABORATORY Microscopic Description Specimen A. SKIN, right knee: Controls were run in parallel. There is IgA and IgM in the papillary dermis consistent with colloid bodies. There is trace linear granular C3 at the dermal-epider mal junction. Staining is negative with IgG. Collagen IV stains the basement membrane zone and vessels. Fibrinogen shows non-specific staining. See fixed tissue results. COMMENT: Colloid bodies represent dyskeratotic keratinocytes that can be seen in lichenoid / interface dermatitis or in areas of chronic irritation / rubbing. Trace linear granular C3 is a common and non-specific staining pattern, which can be seen in chronically sun exposed skin. 3 11:08 AM [facility] DERMATOPATHOLOGY LABORATORY Disclaimer An external and internal positive and negative controls are appropriate for the histochemical , immunohistoch emical and immunofluores cence stain(s) in this case (if any), except where stated explicitly. The performance characteristi cs of the stain(s) cited in this report were developed and its performance characteristi c determined by the Dermatopathol ogy Laboratory at [facility], directed by Dr. Ryan Fong. These tests need not be, and therefore are not, approved by the [place] Food and Drug Administratio n. The tests are used for clinical purposes. Billing Codes Specimen Charges Stain Charges 54303 10141 14148 66635 46733 23418 1 1 1 1 1 1 3 11:08 AM CDT DERMATOPATHOLOGY LABORATORY Embedded Images 3 11:08 AM CDT DERMATOPATHOLOGY LABORATORY Pathology/Cytolog y TISSUE SPECIMEN FROM SKIN / Unknown 11/10/2022 11/10/2022 4:07 PM CDT us Arlin Howe MD LAB - PATHOLOGY/CYTOLOGY ORD ERABLES Final Result DERMATOPATHOLOGY LABORATORY [facility] - Department of Dermatology [facility] [address] [place] [address], [address] [phone] documented in this encounter Visit Diagnoses Not on filedocumented in this encounter
--- OUTSIDE RECORDS SUMMARY | 2024-07-30 15:33 | XMS_ITS | Clinical Summary ---
Author Organization [facility] Address [address] [place] [address] Care Team Providers Care Transportation Specialist Name Role Phone Unavailable Primary Care Provider Unavailabl e Source Comments [facility],non-owned Affiliates and Associated Physician Practices is amultiple site organization consisting of ambulatory clinics and hospital sitesin [place], [place], [place] and [place]. This disclosure is being madepursuant to the Care Everywhere program and may not contain all information available regarding this patient. 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 Gender Identity Not on file Sexual Orientation Not on file Plan of Treatment Health Maintenance Due Date Last Done Comments MEDICARE AWV 12 MONTHS 1936 DTAP/TDAP/TD VACCINES (1 - Tdap) 1955 PNEUMOCOCCAL VACCINE 50+ (1 of 1 - PCV) 1986 ZOSTER VACCINE (1 of 2) 1986 Respiratory Syncytial Virus (RSV) Vaccine Pt: or over 60 yrs (1 - 1-dose 75+ series) 2011 COVID-19 VACCINE ( - 2023-2 5 season) 2023 DEPRESSION SCREENING 04/17/2024 INFLUENZA VACCINE (Season Ended) 2024 HEPATITIS B VACCINE Aged Out No longe r eligible based on patient's age to complete this topic HIB VACCINE Aged Out No longer eligi ble based on patient's age to complete this topic HPV VACCINE Aged Out No longer eligi ble based on patient's age to complete this topic MENINGOCOCCAL (Group B) VACC INE SHARED DECISION-MAKING Aged Out No longer eligibl e based on patient's age to complete this topic MENINGOCOCCAL GROUPS A/C/Y/W VACCINE Aged Out No longer eligible b ased on patient's age to complete this topic Insurance MEDICARE ANTHEM MEDICARE ANTHEM
--- OUTSIDE RECORDS SUMMARY | 2024-07-30 15:33 | XMS_ITS | Encounter Summary ---
Author Organization [facility] Address [address] [place] [address] Phone Care Team Providers Care Studio Hand Name Role Phone Justin Baltazar APRN, FLOOR FINISHER HELPER Primary Care Provider Benedict Ayers MD Unavailable Reason for Visit * Reason Comments Medication Refill Encounter Details Date Type Department Care Team (Late Contact Info) Description 05/09/2022 Refill [facility] Neurology [facility] [address] [place] [phone] Benedict Ayers MD [address] [place] [phone] Medication Refill Social History Tobacco Use Types Packs/Day Years Used Date Smoking Tobacco: Never Smokeless Tobacco: Never Alcohol Use Standard Drinks/Week Comments Not Currently 0 (1 standard drink = 0.6 oz pur e alcohol) Sex and Gender Information Value Date Recorded Sex Assigned at Male 11/29/2022 10:09 AM CDT Legal Sex Male 1:26 PM CDT Gender Identity Male 11/29/2022 10:09 AM CDT Sexual Orientation Not on file documented as of this encounter Plan of Treatment Upcoming Encounters Date Type Department Care Team (Late st Contact Info) Description 09/10/2024 9:30 AM CDT Office Visit [facility] Neurology [facility] [address] [place] [phone] Benedict Ayers MD [address] [place] [phone] documented as of this encounter Visit Diagnoses Not on filedocumented in this encounter Care Teams Studio Hand Relationship Specialty Start Date End Date Justin Baltazar APRN, CNP PCP - General Adult Medicine 12/10/21 Benedict Ayers MD [address] [place] [phone] Consulting Physician Neurology 02/14/22 documented as of this encounter
--- OUTSIDE RECORDS SUMMARY | 2024-07-30 15:33 | XMS_ITS | Encounter Summary ---
Author Organization [facility] Address [address] [facility] [place] [address] Care Team Providers Care Credit Control Clerk Name Role Phone Unavailable Primary Care Provider Unavailabl e Encounter Details Date Type Department Care Team (Late st Contact Info) Description 03/04/2024 Lab Requisition [facility] - DermPath Lab [address] [facility] [place] [address] Arlin Howe MD [address] [facility] [address] [place] [address] Social History Tobacco Use Types Packs/Day Years Used Date Smoking Tobacco: Never Assessed Sex and Gender Information Value Date Recorded Sex Assigned at Not on file 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 Gender Identity Not on file Sexual Orientation Not on file documented as of this encounter Plan of Treatment Not on file documented as of this encounter Procedures Procedure Name Priority Date/Time Associated Diagnosis Comments DERMATOPATHOLOGY Routine 03/04/2024 1:08 PM MATERIAL LIAISON documented in this encounter Results * DERMATOPATHOLOGY (03/04/2024 1:08 PM MATERIAL LIAISON) Case Report Dermatopathology Report Case: [id number] Authorizing Provider: Arlin Howe MD Collected: 03/04/2024 01:08 PM Ordering Location: [facility] Physician [facility] - Received: 03/05/2024 01:25 PM DermPath Lab Pathologist: Lilliam Odonnell MD Specimen: Skin, right holiness 12:30 PM MATERIAL LIAISON DERMATOPATHOLOGY LABORATORY Addendum 1 This lesion is present at the margin of the specimen. 12:30 PM [facility] DERMATOPATHOLOGY LABORATORY Addendum electronically signed by Lilliam Odonnell MD on 03/11/2024 at 12:30 PM Final Diagnosis Specimen A. SKIN, right holiness: BASAL CELL CARCINOMA (C44.319) (see microscopic description and comment) 12:30 PM [facility] DERMATOPATHOLOGY LABORATORY Clinical History R/o BCC, non healing pink papule 12:30 PM [facility] DERMATOPATHOLOGY LABORATORY Gross Description Specimen A: Received is one formalin filled container labeled with the patient's name and designated right holiness. The specimen consists of a shave biopsy measuring 13x7x1 mm. Jar 0. 12:30 PM [facility] DERMATOPATHOLOGY LABORATORY Microscopic Description Specimen A. SKIN, right holiness: The specimen consists of aggregates of basaloid cells, located within the superficial dermis, with high nuclear to cytoplasmic ratio and peripheral palisading. COMMENT: The small size of the specimen limits subtyping of the lesion. 12:30 PM [facility] DERMATOPATHOLOGY LABORATORY Disclaimer An external and internal positive and negative controls are appropriate for the histochemical, immunohistochemical and immunofluorescence stain(s) in this case (if any), except where stated explicitly. The performance characteristics of the stain(s) cited in this report were developed and its performance characteristic determined by the Dermatopathology Laboratory at [facility], directed by Dr. Ryan Fong. These tests need not be, and therefore are not, approved by the [place] Food and Drug Administration. The tests are used for clinical purposes. Billing Codes Specimen Charges Stain Charges 79302 1 12:30 PM MAT[employer]IA[facility] DERMATOPATHOLOGY LABORATORY Embedded Images 12:30 PM [facility] DERMATOPATHOLOGY LABORATORY Pathology/Cytolo gy TISSUE SPECIMEN FROM SKIN / Unknown 03/04/2024 1:08 PM MATERIAL LIAISON 03/05/2024 1:25 PM MATERIAL LIAISON us Arlin Howe MD LAB - PATHOLOGY/CYTOLOGY ORD ERABLES Edited Result - Final DERMATOPATHOLOGY LABORATORY [facility] - Department of Dermatology [address], [address] [phone] documented in this encounter Visit Diagnoses Not on filedocumented in this encounter
--- OUTSIDE RECORDS SUMMARY | 2024-07-30 15:33 | XMS_ITS | Clinical Summary ---
Author Organization [facility] Address [address] [place] [address] Phone Care Team Providers Care Pantry Goods Maker Name Role Phone Justin Baltazar APRN, FILE MACHINE OPERATOR Primary Care Provider Benedict Ayers MD Unavailable [phone] Allergies Active Allergy Reactions Criticality Noted Date Comments Gabapentin Hives 11/29/2022 Medications polycarbophil calcium (FIBERCON) 625 MG Tablet Take 625 mg by mouth daily. Active [place]-3 Fatty Acids (OMEGA-3 FISH OIL PO) Take by mouth. Active aspirin EC 81 MG Tablet Delayed Response Take 81 mg by mouth daily. Active B Complex Vitamins (VITAMIN B COMPLEX PO) Take by mouth. Active amLODIPine (NORVASC) 5 MG Tablet Take 5 mg by mouth daily. Active Alpha-Lipoic Acid 600 MG Capsule Take 1 Capsule by mouth daily. 30 Capsule 3 08/17/2022 Active carbidopa-levod opa (SINEMET) 25-100 MG Tablet Take 3 Tablets by mouth 4 times daily. 1/2 hour before eating 1080 Tablet 3 05/20/2024 Active Active Problems Problem Noted Date Diagnosed Date Parkinson's disease 05/18/2022 Encounters Date Type Department Care Team Description 05/20/2024 Refill [facility] [address] [place] [address] Benedict Ayers MD Medication Refill from Last 3 Months Family History Medical History Relation Name Comments Diabetes Mother Hypertension Mother Relation Name Status Comments Father Mother Social History Tobacco Use Types Packs/Day Years Used Date Smoking Tobacco: Never Smokeless Tobacco: Never Tobacco Cessation:Counseling Given: Not Answered Alcohol Use Standard Drinks/Week Comments Not Currently 0 (1 standard drink = 0.6 oz pur e alcohol) Sex and Gender Information Value Date Recorded Sex Assigned at Male 11/29/2022 10:09 AM CDT Legal Sex Male 1:26 PM CDT Gender Identity Male 11/29/2022 10:09 AM CDT Sexual Orientation Not on file Last Filed Vital Signs Vital Sign Reading Time Taken Comments Blood Pressure 122/70 03/12/2024 8:59 AM CONTENT DEVELOPER Pulse 62 03/12/2024 8:59 AM CONTENT DEVELOPER Temperature 36.7 C (98.1 F) 03/12/2024 8:59 AM CONTENT DEVELOPER Respiratory Rate 16 03/12/2024 8:59 AM CONTENT DEVELOPER Oxygen Saturation 98% 03/12/2024 8:59 AM CONTENT DEVELOPER Inhaled Oxygen Concentration - - Weight 93.4 kg (206 lb) 03/12/2024 8:59 AM CONTENT DEVELOPER Height 175.3 cm (5' 9 ) 03/12/2024 8:59 AM CONTENT DEVELOPER Body Mass Index 30.42 03/12/2024 8:59 AM CONTENT DEVELOPER Plan of Treatment Upcoming Encounters Date Type Department Care Team (Late st Contact Info) Description 09/10/2024 9:30 AM CDT Office Visit [facility] [address] [place] [address] Benedict Ayers MD [address] [place] [address] Health Maintenance Due Date Last Done Comments Hepatitis C Virus (HCV) Screening 1935 TdaP Immunization 1935 Pneumococcal Immunization (5 0+ years) (1 of 1 - PCV) 1986 Zoster Immunization (1 of 2) 1986 Respiratory Syncytial Virus (RSV) Immunization (Adult) (1 - 1-dose 75+ series) 2011 Influenza Immunization (#1) 2023 SARS-COV-2 Immunization ( - season) 2023 Hepatitis B Immunization Aged Out No longer eligible based on patient's age to complete this topic Meningococcal Immunization (ACWY) Aged Out No longer eligible based on patient's age to complete this topic Rotavirus Immunization Aged Out No lo nger eligible based on patient's age to complete this topic Insurance MEDICARE [facility] Care Teams Pantry Goods Maker Relationship Specialty Start Date End Date Justin Baltazar APRN, FILE MACHINE OPERATOR PCP - General Adult Medicine 12/10/21 Benedict Ayers MD [address] [place] [address] Consulting Physician Neurology 02/14/22
--- OUTSIDE RECORDS SUMMARY | 2024-07-30 15:33 | XMS_ITS | Encounter Summary ---
Author Organization [facility] Address [address] [place] [address] Phone Care Team Providers Care Bankruptcy Paralegal Name Role Phone Justin Baltazar APRN, POT RUNNER Primary Care Provider Benedict Ayers MD Unavailable [phone] Reason for Visit * Reason Comments Medication Refill Encounter Details Date Type Department Care Team (Late Contact Info) Description 09/08/2022 Refill [facility] [address] [place] [address] Benedict Ayers MD [address] [place] [address] Medication Refill Social History Tobacco Use Types [...] AM CDT Sexual Orientation Not on file COVID-19 Exposure Response Date Recorded In the last 10 days, have yo u been in contact with someone who was confirmed or suspected to have Coronavirus/COVID-19? No / Unsure 08/15/2022 11:24 AM CDT documented as of this encounter Plan of Treatment Upcoming Encounters Date Type Department Care Team (Late st Contact Info) Description 09/10/2024 9:30 AM CDT Office Visit [facility] - [place] [address] [place] [address] Benedict Ayers MD [address] [place] [address] documented as of this encounter Visit Diagnoses Not on filedocumented in this encounter Care Teams Bankruptcy Paralegal Relationship Specialty Start Date End Date Justin Baltazar APRN, JACOB PCP - General Adult Medicine 12/10/21 Benedict Ayers MD [address] [place] [address] Consulting Physician Neurology 02/14/22 documented as of this encounter
--- OUTSIDE RECORDS SUMMARY | 2024-07-30 15:33 | XMS_ITS | Encounter Summary ---
Author Organization [facility] Address [address] [place] [address] Phone Care Team Providers Care Photographic Spotter Name Role Phone Justin Baltazar APRN, KNITTER OPERATOR Primary Care Provider Benedict Ayers MD Unavailable [phone] Reason for Visit * Reason Comments Medication Refill Encounter Details Date Type Department Care Team (Late st Contact Info) Description 02/28/2023 Refill [facility] - [facility] [address] [place] [address] Benedict Ayers MD [address] [place] [address] Medication Refill Social History Tobacco [...] on file documented as of this encounter Miscellaneous Notes * Telephone Encounter - Jennifer Zuniga RN - 02/28/2023 10:59 AM CST Medication failed the protocol, provider to review and approve the medication order if appropriate. Requested Prescriptions Pending Prescriptions Disp Refills carbidopa-levodopa (SINEMET) 25-100 MG Tablet [Pharmacy Med Name: CARBIDOPA- LEVODOPA 25-100 TAB] 540 Tablet 1 Sig: TAKE 2 TABLETS BY MOUTH 3 TIMES DAILY. 1/2 HOUR BEFORE EATING Antiparkinson Dopaminergics and COMT Protocol Passed - 02/28/2023 12:39 AM Passed - Visit with relevant provider in the past 9 months or upcoming 90 days Recent Visits Date Type Provider Dept 11/29/22 Office Visit Benedict Ayers MD [facility] Neurology [facility] 08/15/22 Office Visit Benedict Ayers MD [facility] Neurology [facility] Showing recent visits within past 270 days and meeting all other requirements Future Appointments Date Type Provider Dept 05/29/23 Appointment Benedict Ayers MD [facility] Neurology [facility] Showing future appointments within next 90 days and meeting all other requirements Passed - Blood pressure on record in past 12 months Clinician-entered: BP Readings from Last 3 Encounters: 11/29/22 130/72 08/15/22 132/78 05/16/22 118/72 Patient-entered: No data recorded ADJUDICATION SPECIALIST documented in this encounter Plan of Treatment Upcoming Encounters Date Type Department Care Team (Late st Contact Info) Description 09/10/2024 9:30 AM CDT [facility] [address] [place] [address] Benedict Ayers MD [address] [place] [address] documented as of this encounter Visit Diagnoses Not on filedocumented in this encounter Care Teams Photographic Spotter Relationship Specialty Start Date End Date Justin Baltazar APRN, CNP PCP - General Adult Medicine 12/10/21 Benedict Ayers MD [address] [place] [address] Consulting Physician Neurology 02/14/22 documented as of this encounter
[2024-07-30 15:39] LABS: Add Urine Microscopic? NO; Appearance Urine Clear (Clear); Bilirubin Urine Negative (Negative); Blood Urine Negative (Negative); Color Urine Yellow (Yellow); Glucose Urine UA Negative (Negative); Ketones Urine Negative (Negative); Leukocyte Esterase Ur Negative LEU/UL (Negative); Nitrate Urine Negative (Negative); Protein Urine Negative (Negative); Specific Grav Ur 1.012 (1.001-1.035); pH Urine 6.5 (5.0-9.0)
[2024-07-30 15:54] VITALS: BP 129/67; PULSE 65; RESP 18; O2SAT 95
--- OUTSIDE RECORDS SUMMARY | 2024-07-30 16:10 | XMS_ITS | Encounter Summary ---
Author Organization [facility] Address [address] [place] [address] Phone Care Team Providers Care Tile And Marble Installer Name Role Phone Justin Baltazar APRN, TRAVELING ELECTRICIAN Primary Care Provider Benedict Ayers MD Unavailable [phone] Reason for Visit * Reason Comments Medication Refill Encounter Details Date Type Department Care Team (Late Contact Info) Description 09/08/2022 Refill [facility] - Neurology [facility] [address] [place] [address] Benedict Ayers MD [address] [place] [address] Medication Refill Social History Tobacco [...] [facility] [place] [address] [place] [address] Benedict Ayers MD [address] [place] [address] documented as of this encounter Visit Diagnoses Not on filedocumented in this encounter Care Teams Tile And Marble Installer Relationship Specialty Start Date End Date Justin Baltazar APRN, JACOB PCP - General Adult Medicine 12/10/21 Benedict Ayers MD [address] [place] [address] Consulting Physician Neurology 02/14/22 documented as of this encounter
--- OUTSIDE RECORDS SUMMARY | 2024-07-30 16:10 | XMS_ITS | Encounter Summary ---
Author Organization [facility] Address [address] [place] [address] Phone Care Team Providers Care Clean Room Assembler Name Role Phone Justin Baltazar APRN, RIB PULLER Primary Care Provider Benedict Ayers MD Unavailable Reason for Visit * Reason Comments Medication Refill Encounter Details Date Type Department Care Team (Late st Contact Info) Description 02/28/2023 Refill [facility] - Neurology [facility] [address] [place] [address] Benedict Ayers MD [address] [place] [address] Medication Refill Social History Tobacco [...] Dept 11/29/22 Office Visit Benedict Ayers MD [facility] Neurology [facility] 08/15/22 Office Visit Benedict Ayers MD [facility] Neurology [facility] Showing recent visits within past 270 days and meeting all other requirements Future Appointments Date Type Provider Dept 05/29/23 Appointment Benedict Ayers MD [facility] Neurology [facility] Showing future appointments within next 90 days and meeting all other requirements Passed - Blood pressure on record in past 12 months Clinician-entered: BP Readings from Last 3 Encounters: 11/29/22 130/72 08/15/22 132/78 05/16/22 118/72 Patient-entered: No data recorded EL MAKER documented in this encounter Plan of Treatment Upcoming Encounters Date Type Department Care Team (Late st Contact Info) Description 09/10/2024 9:30 AM CDT [facility] [address] [place] [address] Benedict Ayers MD [address] [place] [address] documented as of this encounter Visit Diagnoses Not on filedocumented in this encounter Care Teams Clean Room Assembler Relationship Specialty Start Date End Date Justin Baltazar APRN, CNP PCP - General Adult Medicine 12/10/21 Benedict Ayers MD [address] [place] [address] Consulting Physician Neurology 02/14/22 documented as of this encounter
--- OUTSIDE RECORDS SUMMARY | 2024-07-30 16:10 | XMS_ITS | Clinical Summary ---
Author Organization [facility] Address [address] [place] [address] Care Team Providers Care Ballet Company Artistic Director Name Role Phone Unavailable Primary Care Provider Unavailabl e Source Comments [facility],non-owned Affiliates and Associated Physician Practices is amultiple site organization consisting of ambulatory clinics and hospital sitesin [place], [place], [place] and [place]. This disclosure is being madepursuant to the Care Everywhere program and may not contain all information available regarding this patient. Last updated 18.[facility] Social History Tobacco Use Types Packs/Day Years Used Date Smoking Tobacco: Never Assessed Sex and Gender Information Value Date Recorded Sex Assigned at Not on file Legal Sex Male 9:01 AM KITCHEN LEAD Gender Identity Not on file Sexual Orientation [...]
--- OUTSIDE RECORDS SUMMARY | 2024-07-30 16:10 | XMS_ITS | Encounter Summary ---
Author Organization [facility] Address [address] [place] [address] Care Team Providers Care Bilingual School Psychologist Name Role Phone Unavailable Primary Care Provider Unavailabl e Encounter Details Date Type Department Care Team (Late st Contact Info) Description 11/10/2022 Lab Requisition [facility] - [facility] Lab [address] [place] [address] Arlin Howe MD [address] [facility] [address] [place] [address] Social History Tobacco Use Types Packs/Day Years Used Date Smoking Tobacco: Never Assessed Sex and Gender Information Value Date Recorded Sex Assigned at Not on file Legal Sex Male 9:01 AM GENERAL DOC Gender Identity Not on file Sexual Orientation Not on file documented as of this encounter Plan of Treatment Not on file documented as of this encounter Procedures Procedure Name Priority Date/Time Associated Diagnosis Comments DERMATOPATHOLOGY Routine 11/10/2022 11:1 9 AM CDT documented in this encounter Results * DERMATOPATHOLOGY (11/10/2022 11:19 AM CDT) Case Report Dermatopathology Report Case: [id number] Authorizing Provider: Arlin Howe MD Collected: 11/10/2022 11:19 AM Ordering Location: [facility] Lab Received: 11/10/2022 04:06 PM Pathologist: Lilliam Odonnell MD Specimen: Skin, right knee 11:06 AM CDT DERMATOPATHOLOGY LABORATORY Final Diagnosis Specimen A. 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 The specimen consists of a punch biopsy measuring 4x4x5 mm. Jar 0. 3 11:06 AM [facility] DERMATOPATHOLOGY LABORATORY Microscopic Description Specimen A. SKIN, [...] eczematous pigmented purpuric dermatosis. 3 11:06 AM [facility] DERMATOPATHOLOGY LABORATORY Disclaimer An external and internal positive and negative controls are appropriate for the histochemical, immunohistochemical and immunofluorescence stain(s) in this case (if any), except where stated explicitly. The performance characteristics of the stain(s) cited in this report were developed and its performance characteristic determined by the Dermatopathology Laboratory at [facility], directed by Dr. Ryan Fong. These tests need not be, and therefore are not, approved by the [place] Food and Drug Administration. The tests are used for clinical purposes. Billing Codes Specimen Charges Stain Charges 14021 1 22489 43529 1 1 3 11:06 AM CDT DERMATOPATHOLOGY LABORATORY Embedded Images 3 11:06 AM T DERMATOPATHOLOGY LABORATORY Pathology/Cytolo gy TISSUE SPECIMEN FROM SKIN / Unknown 11/10/2022 11:19 AM CDT 11/10/2022 4:06 PM CDT us Arlin Howe MD LAB - PATHOLOGY/CYTOLOGY ORD ERABLES Final Result DERMATOPATHOLOGY LABORATORY [facility] - Department of Dermatology [address] [phone] documented in this encounter Visit Diagnoses Not on filedocumented in this encounter
--- OUTSIDE RECORDS SUMMARY | 2024-07-30 16:10 | XMS_ITS | Encounter Summary ---
Author Organization [facility] Address [address] [place] [address] Care Team Providers Care Assistant Unit Forester Name Role Phone Unavailable Primary Care Provider Unavailabl e Encounter Details Date Type Department Care Team (Late st Contact Info) Description 11/10/2022 Lab Requisition [facility] - DermPath Lab [address] [place] [address] Arlin Howe MD [address] [facility] [address] [place] [address] Social History Tobacco Use Types Packs/Day Years Used Date Smoking Tobacco: Never Assessed Sex and Gender Information Value Date Recorded Sex Assigned at Not on file Legal Sex Male 9:01 AM LABORER YARD Gender Identity Not on file Sexual Orientation Not on file documented as of this encounter Plan of Treatment Not on file documented as of this encounter Procedures Procedure Name Priority Date/Time Associated Diagnosis Comments IMMUNOFLUORESCENT STUDY DERM Routine 11/10/2022 12:00 AM CDT documented in this encounter Results * IMMUNOFLUORESCENT STUDY DERM (11/10/2022 12:00 AM CDT) Case Report Dermatopathol ogy Report Case: [id number] Authorizing Provider: Arlin Howe MD Collected: 11/10/2022 12:00 AM Ordering Location: [facility] DermPath Lab Received: 11/10/2022 04:07 PM Pathologist: Lilliam Odonnell MD Specimen: Skin, right knee 11:08 AM CDT DERMATOPATHOLOGY LABORATORY Final Diagnosis Specimen A. SKIN, right knee: COLLOID BODIES (L98.9) TRACE LINEAR GRANULAR BASEMENT MEMBRANE ZONE POSITIVITY WITH C3 (L98.9) (see fixed tissue results) ([id number]) (see microscopic description and comment) 11:08 AM [...] direct immunofluores cence testing. 3 11:08 AM [facility] DERMATOPATHOLOGY LABORATORY Microscopic Description Specimen A. SKIN, [...] chronically sun exposed skin. 3 11:08 AM [facility] DERMATOPATHOLOGY LABORATORY Disclaimer An external and internal positive and negative controls are appropriate for the histochemical , immunohistoch emical and immunofluores cence stain(s) in this case (if any), except where stated explicitly. The performance characteristi cs of the stain(s) cited in this report were developed and its performance characteristi c determined by the Dermatopathol ogy Laboratory at [facility], directed by Dr. Ryan Fong. These tests need not be, and therefore are not, approved by the [place] Food and Drug Administratio n. The tests are used for clinical purposes. Billing Codes Specimen Charges Stain Charges 40639 66222 61941 89779 54377 14394 1 1 1 1 1 1 3 11:08 AM CDT DERMATOPATHOLOGY LABORATORY Embedded Images 3 11:08 AM CDT DERMATOPATHOLOGY LABORATORY Pathology/Cytolog y TISSUE SPECIMEN FROM SKIN / Unknown 11/10/2022 11/10/2022 4:07 PM CDT us Arlin Howe MD LAB - PATHOLOGY/CYTOLOGY ORD ERABLES Final Result DERMATOPATHOLOGY LABORATORY [facility] - Department of Dermatology [facility] Specialized Medicine [address] [place] [address], [address] [phone] documented in this encounter Visit Diagnoses Not on filedocumented in this encounter
--- OUTSIDE RECORDS SUMMARY | 2024-07-30 16:10 | XMS_ITS | Encounter Summary ---
Author Organization [facility] Address [address] [facility] [address] [place] [address] Care Team Providers Care Muck Hauler Name Role Phone Unavailable Primary Care Provider Unavailabl e Encounter Details Date Type Department Care Team (Late st Contact Info) Description 03/04/2024 Lab Requisition [facility] - DermPath Lab [address] [facility] [place] [address] Arlin Howe MD [address] [facility] [address] [place] [address] Social History Tobacco Use Types Packs/Day Years Used Date Smoking Tobacco: Never Assessed Sex and Gender Information Value Date Recorded Sex Assigned at Not on file Legal Sex Male 9:01 AM ALUMINUM FABRICATION SUPERVISOR Gender Identity Not on file Sexual Orientation Not on file documented as of this encounter Plan of Treatment Not on file documented as of this encounter Procedures Procedure Name Priority Date/Time Associated Diagnosis Comments DERMATOPATHOLOGY Routine 03/04/2024 1:08 PM ALUMINUM FABRICATION SUPERVISOR documented in this encounter Results * DERMATOPATHOLOGY (03/04/2024 1:08 PM ALUMINUM FABRICATION SUPERVISOR) Case Report Dermatopathology Report Case: [id number] Authorizing Provider: Arlin Howe MD Collected: 03/04/2024 01:08 PM Ordering Location: [facility] Physician [facility] - Received: 03/05/2024 01:25 PM DermPath Lab Pathologist: Lilliam Odonnell MD Specimen: Skin, right nondenominational 12:30 PM ALUMINUM FABRICATION SUPERVISOR DERMATOPATHOLOGY LABORATORY Addendum 1 This lesion is present at the margin of the specimen. 12:30 PM ALUMINUM FABRICATION SUPERVISOR DERMATOPATHOLOGY LABORATORY Addendum electronically signed by Lilliam Odonnell MD on 03/11/2024 at 12:30 PM Final Diagnosis Specimen A. SKIN, right nondenominational: BASAL CELL CARCINOMA (C44.319) (see microscopic description and comment) 12:30 PM [facility] DERMATOPATHOLOGY LABORATORY Clinical History R/o BCC, non healing pink papule 12:30 PM ALUMINUM FABRICATION SUPERVISOR DERMATOPATHOLOGY LABORATORY Gross Description Specimen A: Received is one formalin filled container labeled with the patient's name and designated right nondenominational. The specimen consists of a shave biopsy measuring 13x7x1 mm. Jar 0. 12:30 PM [facility] DERMATOPATHOLOGY LABORATORY Microscopic Description Specimen A. SKIN, right nondenominational: The specimen consists of aggregates of basaloid cells, located within the superficial dermis, with high nuclear to cytoplasmic ratio and peripheral palisading. COMMENT: The small size of the specimen limits subtyping of the lesion. 12:30 PM [facility] DERMATOPATHOLOGY LABORATORY Disclaimer An external and internal positive and negative controls are appropriate for the histochemical, immunohistochemical and immunofluorescence stain(s) in this case (if any), except where stated explicitly. The performance characteristics of the stain(s) cited in this report were developed and its performance characteristic determined by the Dermatopathology Laboratory at [facility], directed by Dr. Ryan Fong. These tests need not be, and therefore are not, approved by the [place] Food and Drug Administration. The tests are used for clinical purposes. Billing Codes Specimen Charges Stain Charges 81969 1 12:30 PM ALUMINUM FABRICATION SUPERVISOR DERMATOPATHOLOGY LABORATORY Embedded Images 12:30 PM [facility] DERMATOPATHOLOGY LABORATORY Pathology/Cytolo gy TISSUE SPECIMEN FROM SKIN / Unknown 03/04/2024 1:08 PM ALUMINUM FABRICATION SUPERVISOR 03/05/2024 1:25 PM ALUMINUM FABRICATION SUPERVISOR us Arlin Howe MD LAB - PATHOLOGY/CYTOLOGY ORD ERABLES Edited Result - Final DERMATOPATHOLOGY LABORATORY [facility] - Department of Dermatology [address], [address] [phone] documented in this encounter Visit Diagnoses Not on filedocumented in this encounter
--- OUTSIDE RECORDS SUMMARY | 2024-07-30 16:10 | XMS_ITS | Encounter Summary ---
Author Organization [facility] Address [address] [place] [address] Phone Care Team Providers Care Diamond Cleaver Name Role Phone Justin Baltazar APRN, RETRIEVAL SPECIALIST Primary Care Provider Benedict Ayers MD Unavailable [phone] Reason for Visit * Reason Comments Medication Refill Encounter Details Date Type Department Care Team (Late Contact Info) Description 05/09/2022 Refill [facility] [address] [place] [phone] Benedict Ayers MD [address] [place] [phone] Medication Refill Social History Tobacco Use Types [...] Description 09/10/2024 9:30 AM CDT Office Visit [facility] [address] [place] [phone] Benedict Ayers MD [address] [place] [phone] documented as of this encounter Visit Diagnoses Not on filedocumented in this encounter Care Teams Diamond Cleaver Relationship Specialty Start Date End Date Justin Baltazar APRN, CNP PCP - General Adult Medicine 12/10/21 Benedict Ayers MD [address] [place] [phone] Consulting Physician Neurology 02/14/22 documented as of this encounter
--- OUTSIDE RECORDS SUMMARY | 2024-07-30 16:10 | XMS_ITS | Clinical Summary ---
Author Organization [facility] Address [address] [place] [address] Phone Care Team Providers Care Collar Baster Jumpbasting Name Role Phone Justin Baltazar APRN, AIR SUPPORT OPERATIONS OPERATOR Primary Care Provider Benedict Ayers MD Unavailable [phone] Allergies Active Allergy Reactions Criticality Noted Date Comments Gabapentin Hives 11/29/2022 Medications polycarbophil calcium (FIBERCON) 625 MG Tablet Take 625 mg by mouth daily. Active Inland-3 Fatty Acids (OMEGA-3 FISH OIL PO) Take [...] Type Department Care Team Description 05/20/2024 Refill [facility] [address] [place] [address] Benedict Ayers MD Medication Refill [...] Comments Blood Pressure 122/70 03/12/2024 8:59 AM COMMUNICATIONS DEPARTMENT CHAIR Pulse 62 03/12/2024 8:59 AM COMMUNICATIONS DEPARTMENT CHAIR Temperature 36.7 C (98.1 F) 03/12/2024 8:59 AM COMMUNICATIONS DEPARTMENT CHAIR Respiratory Rate 16 03/12/2024 8:59 AM COMMUNICATIONS DEPARTMENT CHAIR Oxygen Saturation 98% 03/12/2024 8:59 AM COMMUNICATIONS DEPARTMENT CHAIR Inhaled Oxygen Concentration - - Weight 93.4 kg (206 lb) 03/12/2024 8:59 AM COMMUNICATIONS DEPARTMENT CHAIR Height 175.3 cm (5' 9 ) 03/12/2024 8:59 AM COMMUNICATIONS DEPARTMENT CHAIR Body Mass Index 30.42 03/12/2024 8:59 AM COMMUNICATIONS DEPARTMENT CHAIR Plan of Treatment Upcoming Encounters Date Type Department Care Team (Late st Contact Info) Description 09/10/2024 9:30 AM CDT Office Visit [facility] [address] [place] [address] Benedict Ayers MD [address] [place] [address] Health Maintenance Due Date Last Done Comments [...] age to complete this topic Insurance MEDICARE [facility] Care Teams Collar Baster Jumpbasting Relationship Specialty Start Date End Date Justin Baltazar APRN, AIR SUPPORT OPERATIONS OPERATOR PCP - General Adult Medicine 12/10/21 Benedict Ayers MD [address] [place] [address] Consulting Physician Neurology 02/14/22
[2024-07-30] MEDS: CARBIDOPA/LEVODOPA 25/100 MG TABLET 2 TABLET PO (17:25)
[2024-07-30 17:37] LABS: Basophils Percent Auto 0.5 % (0.2-1.2); Eosinophils Absolute Auto 0.1 K/mm3 (0-0.3); Eosinophils Percent Auto 1.1 % (0-4.4); Hematocrit 44.2 % (42.0-52.0); Hemoglobin 13.9 g/dL (14.0-18.0); Immature Granulocyte Absolute 0.02 K/mm3 (0.00-0.031); Immature Granulocyte Percent A 0.3 % (0-0.5); Lymphocytes Absolute Auto 1.51 K/mm3 (0.9-3.2); Lymphocytes Percent Auto 20.5 % (18.3-44.2); Mean Corpuscular HGB Conc 31.4 g/dl (32-36); Mean Corpuscular Hemoglobin 29.4 pg (26-34); Mean Corpuscular Volume 93.6 fl (80-100); Mean Platelet Volume 8.6 fl (7.4-10.4); Monocytes Absolute Auto 0.8 K/mm3 (0.1-0.6); Monocytes Percent Auto 10.3 % (2.6-8.5); Neutrophils Percent Auto 67.3 % (45.5-73.1); Platelet Count Result 215 k/mm3 (150-375); Red Blood Count 4.72 M/mm3 (4.6-6.20); Red Cell Distribution Width 12.9 % (11.5-14.5); White Blood Count 7.4 K/mm3 (4.5-10.0)
[2024-07-30 17:49] LABS: Alanine Aminotransferase 15 U/L (6-50); Albumin Level 4.2 g/dL (3.5-5.1); Alkaline Phosphatase 73 U/L (38-126); Anion Gap 7 mmol/L (4-12); Aspartate Amino Transferase 33 U/L (17-59); Bilirubin,Total 0.5 mg/dL (0.2-1.3); Blood Urea Nitrogen 15 mg/dL (9-20); Calcium 9.1 mg/dL (8.4-10.2); Carbon Dioxide 32 mmol/L (22-30); Chloride 100 mmol/L (98-107); Estimated Glomerular Filt Rate > 60; Glucose 83 mg/dL (65-110); Potassium 4.2 mmol/L (3.4-5.0); Sodium 139 mmol/L (137-145)
[2024-07-30 18:55] VITALS: BP 165/76; PULSE 76; RESP 16; O2SAT 93
--- NOTE | 2024-07-30 19:38 | ED_ITS ---
HPI - Male Genitourinary General Chief complaint: Urogenital-Male Stated complaint: Lower back pain-poss UTI Time Seen by Provider: 07/30/24 15:01 History of Present Illness HPI Narrative: Patient with history of Parkinson's, prior UTIs, presents here with some pain to the right lower back, concern for possible UTI. No nausea vomiting. No abdominal pain, fevers or chills. Does not take pain medications or does not like to. Related Data Home Medications ?Medication ?Instructions ?Recorded ?Confirmed ?Last Taken ?Type omega-3 fatty acids-fish oil 684 1 cap PO DAILY 04/30/20 09/16/23 09/12/23 History mg-1,200 mg capsule,delayed release vitamin B complex (B 1 tablet PO DAILY 09/18/21 09/16/23 09/12/23 History Complex-Vitamin B12 tablet) carbidopa 25 mg-levodopa 100 mg 2 tablet PO TID 03/15/22 09/16/23 09/12/23 History tablet aspirin 81 mg tablet,delayed 81 mg PO DAILY 11/08/22 09/16/23 09/12/23 History release calcium polycarbophil 625 mg 1,250 mg PO DAILY 09/13/23 09/16/23 Unknown History tablet (FiberCon) Allergies Allergy/AdvReac Type Severity Reaction Status Date / Time gabapentin (From Gabarone) Allergy Mild Rash Verified 07/30/24 14:26 Review of Systems 2 Review of Systems: All systems reviewed & are unremarkable except as noted in HPI and below PMFSH Past Medical History Medical History (Updated 07/30/24 @ 18:31 by Sveta Boyle MD) Multiple falls Rhabdomyolysis Pressure ulcer Parkinson disease Neuropathy BPH (benign prostatic hyperplasia) Hypertension Polycythemia Atrial fibrillation Essential (primary) hypertension Surgical History Surgical History Status post surgical removal of malignant neoplasm of skin History of ankle surgery ORIF left ankle S/P ORIF (open reduction internal fixation) fracture Left ankle Family History Family History Sibling Family history of diabetes mellitus in first degree relative Mother Diabetes mellitus Hypertension Father Sudden Social History Social History Social History: The patient is living home alone. He is . He does not have a durable power inspector pawnshop detail for healthcare. The patient is retired from [employer]. He is a lifelong nonsmoker. He does not use any alcohol or illicit drugs. The patient had 1 daughter and no other children Smoking status: Never smoker Second hand tobacco smoke exposure: No Alcohol intake: never Substance use: never Substance use type: does not use Do You Feel Safe in your Home?: Yes Lack of Transportation: No Lack of Food: Never True Current Housing: I Have Housing Concerned About Future Housing: No Difficulty Paying Gas/Electric Bills: No Difficulty Paying for Meds: No Currently Unemployed: No Education: High School Diploma/GED Difficulty w/ Childcare or Family Care: No Living arrangements: with family Occupation/Education: retired Gender identity (if verbalized by the patient): Male Sexual Orientation (if Verbalized by the Patient): Straight or Heterosexual Spiritual care concerns: No Exam 2 Narrative: EXAMINATION OF ORGAN SYSTEMS/BODY AREAS: Constitutional: Vital signs per nursing GENERAL:[No acute distress, non-toxic appearing.] HEAD: Normal with no signs of head trauma. EYES: EOMI, conjunctiva normal ENT: Hearing grossly intact LUNGS: Nonlabored breathing. HEART: [Regular rate and rhythm] ABD: [Soft], [nontender to palpation]; some slight right lower back tenderness EXT: Normal range of motion SKIN: [No rashes or lesions.] NEURO: [Alert. Very tremulous] PSYCH: Normal affect Course Vital Signs Vital signs: Vital Signs Temperature 97.8 F 07/30/24 14:29 Pulse Rate 84 07/30/24 14:29 Respiratory Rate 16 07/30/24 14:29 Blood Pressure 156/66 H 07/30/24 14:29 Pulse Oximetry 96 07/30/24 14:29 Oxygen Delivery Room Air 07/30/24 14:29 Temperature 97.8 F 07/30/24 14:29 Pulse Rate 76 07/30/24 18:55 Respiratory Rate 16 07/30/24 18:55 Blood Pressure 165/76 H 07/30/24 18:55 Pulse Oximetry 93 07/30/24 18:55 Oxygen Delivery Room Air 07/30/24 14:29 MDM - Male Genitourinary MDM Narrative Medical decision making narrative: Patient presenting here with right lower back pain, concern for possible UTI or kidney stone. Family at bedside providing history. Labs within acceptable limits including normal LFTs and bilirubin, urinalysis completely normal, CT abdomen/pelvis obtained showing potential biliary malignancy, I did discuss this with the patient, family at bedside, they are already aware of this and have already had workup for this, consider liver enzymes and bilirubin are normal here, he has no nausea vomiting or abdominal pain or fevers, I do feel he can follow-up outpatient. All labs and findings discussed with patient and they are agreeable to outpatient management with return precautions. At time of discharge patient was no no distress, no pain. Lab Data 07/30/24 17:32 07/30/24 17:32 Labs: Lab Results 07/30/24 07/30/24 Range/Units 15:25 17:32 WBC 7.4 (4.5-10.0) K/mm3 RBC 4.72 (4.6-6.20) M/mm3 Hgb 13.9 L (14.0-18.0) g/dL Hct 44.2 (42.0-52.0) % MCV 93.6 (80-100) fl MCH 29.4 (26-34) pg MCHC 31.4 L (32-36) g/dl RDW 12.9 (11.5-14.5) % Plt Count 215 (150-375) k/mm3 MPV 8.6 (7.4-10.4) fl Immature Gran % (Auto) 0.3 (0-0.5) % Neut % (Auto) 67.3 (45.5-73.1) % Lymph % (Auto) 20.5 (18.3-44.2) % Evans % (Auto) 10.3 H (2.6-8.5) % Eos % (Auto) 1.1 (0-4.4) % Baso % (Auto) 0.5 (0.2-1.2) % Lymph # (Auto) 1.51 (0.9-3.2) K/mm3 Evans # (Auto) 0.8 H (0.1-0.6) K/mm3 Eos # (Auto) 0.1 (0-0.3) K/mm3 Baso # (Auto) 0.0 (0.0-0.1) K/mm3 Abs Immat Gran (auto) 0.02 (0.00-0.031) K/mm3 Absolute Neuts (auto) 5.0 (1.3-6.7) K/mm3 Absolute Nucleated RBC 0.000 (0.0-0.012) K/mm3 Nucleated RBC % 0.0 (0.0-0.2) % Sodium 139 (137-145) mmol/L Potassium 4.2 (3.4-5.0) mmol/L Chloride 100 (98-107) mmol/L Carbon Dioxide 32 H (22-30) mmol/L Anion Gap 7 (4-12) mmol/L BUN 15 (9-20) mg/dL Creatinine 0.71 (0.7-1.3) mg/dL Estim Creat Clear Calc Not Reportable Estimated GFR > 60 (59 - ) Glucose 83 (65-110) mg/dL Calcium 9.1 (8.4-10.2) mg/dL Total Bilirubin 0.5 (0.2-1.3) mg/dL AST 33 (17-59) U/L ALT 15 (6-50) U/L Alkaline Phosphatase 73 (38-126) U/L Total Protein 7.0 (6.3-8.2) g/dL Albumin 4.2 (3.5-5.1) g/dL Urine Color Yellow (Yellow) Urine Appearance Clear (Clear) Urine pH 6.5 (5.0-9.0) Ur Specific [place] 1.012 (1.001-1.035) Urine Protein Negative (Negative) mg/dL Urine Glucose (UA) Negative (Negative) mg/dL Urine Ketones Negative (Negative) mg/dL Ur Blood (Man) Negative (Negative) Urine Nitrate Negative (Negative) Urine Bilirubin Negative (Negative) Urine Urobilinogen 1.0 (<2.0) mg/dL Leukocyte Esterase Rfl Negative (Negative) TERENCE/UL Discharge Plan Discharge Clinical Impression: Acute right-sided back pain Patient Disposition: Home Condition: Stable Instructions: Acute Low Back Pain (ED) Additional Instructions: Please follow up with your doctor; you can always return to the ER for any further issues. You can take tylenol as needed for pain. Patient Language: Thai Prescriptions: No Action carbidopa-levodopa 25-100 mg tablet 2 tablet PO TID vitamin B complex [B Complex-Vitamin B12] Tablet 1 tablet PO DAILY aspirin 81 mg tablet,delayed release (DR/EC) 81 mg PO DAILY omega-3 fatty acids-fish oil 684-1,200 mg Capsule,Delayed Release(Dr/Ec) 1 cap PO DAILY FiberCon 625 mg tablet 1,250 mg PO DAILY pramipexole 0.25 mg tablet 0.25 mg PO QHS Qty: 30 2RF Rx Instructions: Hasn't taken yet amlodipine 5 mg tablet See Rx Instructions .ROUTE .COMPLEX Qty: 90 1RF Dose Instruction: TAKE 1 TABLET BY MOUTH DAILY Rx Instructions: TAKE 1 TABLET BY MOUTH DAILY Follow-up/Referrals: Justin Baltazar APRN [Primary Care Provider] -
== END 2024-07-30 18:57 | disposition home or self-care (01) ==
PROVIDERS: Emergency Provider Emergency Medicine; PCP Nurse Practitioner
DX: M54.50 Low back pain, unspecified (principal); G20.A1 Parkinson's disease without dyskinesia, without mention of fluctuations; I10 Essential (primary) hypertension; I48.91 Unspecified atrial fibrillation; N40.0 Benign prostatic hyperplasia without lower urinary tract symptoms; G62.9 Polyneuropathy, unspecified; Z85.828 Personal history of other malignant neoplasm of skin; Z79.82 Long term (current) use of aspirin; Z79.899 Other long term (current) drug therapy
CPT/HCPCS: 36415; 74176; 80053; 81003; 85025; 99284; A9270

== ENCOUNTER 2024-09-15 13:01 | Inpatient (IN) | payer MEDICARE, SELFPAY ==
[2024-09-15] VITALS (10 sets, daily range): BP systolic 116–159; BP diastolic 49–94; PULSE 59–92; RESP 14–20; TEMP 36.4–36.7; O2SAT 92–97; BMI 29.7
--- NOTE | ~2024-09-15 | MR_ITS ---
EXAMINATION: MR MRCP wo/w con/w 3D wo ind DATE: 09/17/2024 13:11 INDICATION: Pancreatic mass. Abnormal biliary dilation. TECHNIQUE: Magnetic resonance imaging (MRI) of the abdomen was performed without and with 18 mL Multi reymundo intravenous contrast. Sequences included coronal T2-weighted SS-FSE, coronal T2-weighted FS SS- FSE, coronal T2-weighted FS FIESTA, axial T2-weighted FS FIESTA, axial T2-weighted FIESTA, sagittal T 2-weighted SS-FSE, axial T1-weighted dual-echo FSPGR, axial T2-weighted SS-FSE, axial T1-weighted LAV A, axial T2-weighted STIR FSE. Thick-slab T2-weighted FRFSE-XL images were obtained for magnetic reso nance cholangiopancreatography (MRCP). Rotating maximum intensity projection 3-D reconstructions of t he volumetric data were created by the technologist. Postcontrast sequences included a time course of axial T1-weighted LAVA. COMPARISON: CT dated 07/30/2024 FINDINGS: Mild hepatomegaly. No pericardial or pleural effusion. There is moderate intrahepatic biliary ductal dilation. Liver is otherwise unremarkable. There are multiple low signal intensity gallstones in the dependent neck of the gallbladder which is dilated to 4.5 cm maximal diameter and which measures 12 c m in length. Some additional low signal intensity small gallstones extending into the dependent aspec t of the tortuous and dilated cystic duct. The common bile duct is dilated to up to 1.9 cm. In the mi d common bile duct there is an intraluminal filling defect which enhances and measures 1.8 x 1.3 cm o n the coronal images. There is suggestion at the nodule is contiguous with an ill-defined approximate ly 1.5 cm region of subtle hyperenhancement on the arterial phase imaging in the more anterior head o f the pancreas. There is however no evident obstruction of the main pancreatic duct remains normal in caliber. There is a 6 mm simple appearing cystic lesion in the body the pancreas which given size, a ppearance and patient age and requires no further follow-up. Spleen and bilateral adrenal glands are normal. There are nonenhancing bilateral renal cysts including bilateral parapelvic cysts and a coupl e cysts in the right kidney demonstrating increased T1 and low T2 signal consistent with complex prot einaceous/hemorrhagic cyst. No bowel obstruction. Multiple diverticula along the sigmoid colon withou t adjacent inflammatory stranding to suggest diverticulitis. No pathologically enlarged abdominal lym phadenopathy. 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 Small T2 hyperintense fat saturating lesion in the L5 vertebral body most consisten t with a hemangioma. Otherwise normal bone marrow signal. IMPRESSION: 1. Intraluminal obstructing and enhancing nodular soft tissue density in the mid common bile duct whi ch appears to arise from the more anterior head of the pancreas, concerning for neoplasm. This result s in moderate intra and extra hepatic biliary ductal dilation and mild dilation the gallbladder which contains multiple tiny gallstones but without wall thickening or pericholecystic inflammatory strand ing to suggest acute cholecystitis. Of note this lesion appears to have been present since CT dated at which time an ERCP was recommended for which patient was be referred to the adjacent bili lcuie service for endoscopic ultrasound evaluation. Correlate with outside clinical history. Otherwise would consider ERCP with consideration for biliary stenting as clinically indicated. Reviewed, dictated and finalized at location A. IMPRESSION: 1. Intraluminal obstructing and enhancing nodular soft tissue density in the mi d common bile duct which appears to arise from the more anterior head of the pa ncreas, concerning for neoplasm. This results in moderate intra and extra hepat ic biliary ductal dilation and mild dilation the gallbladder which contains mul tiple tiny gallstones but without wall thickening or pericholecystic inflammato ry stranding to suggest acute cholecystitis. Of note this lesion appears to hav e been present since CT dated 04/30/2020 at which time an ERCP was recommended f or which patient was be referred to the adjacent biliary service for endoscopic ultrasound evaluation. Correlate with outside clinical history. Otherwise woul d consider ERCP with consideration for biliary stenting as clinically indicated .
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
--- NOTE | ~2024-09-15 | CT_ITS ---
EXAMINATION: CT diagnostic chest wo con DATE: 09/16/2024 10:48 INDICATION: Pneumonia versus edema. TECHNIQUE: Computed tomography (CT) of the chest was performed without intravenous contrast. The dose -length product was 384.62 mGy-cm. Automated exposure control and iterative reconstruction technique were employed. COMPARISON: CT dated 09/17/2021 FINDINGS: There is chronic intra and extrahepatic biliary dilatation, likely secondary to pancreatic head mass. Stable intermediate density right renal mass at the upper pole measuring 1.8 cm. No signif icant pleural or pericardial effusion. There is 2 mm right upper lobe nodule. There is 2 mm nodule titus perior segment left lower lobe. There are nonobstructing right renal stones. No thoracic lymphadenopathy. There is atherosclerosis of the aorta and coronary arteries. Heart size normal. There is dependent atelectasis. No focal pneumonia or edema. Mildly elevated right diaphragm. IMPRESSION: 1. No evidence for focal pneumonia or edema. 2: Chronic intra and extrahepatic biliary dilatation masses described on prior CTA chest dated 2021. Consider correlation with MRI of the abdomen without and with contrast. Moderate thoracic spond ylosis with kyphosis. 3: Small pulmonary nodules measuring 2 mm or less, likely benign. Reviewed, dictated and finalized at location A. IMPRESSION: 1. No evidence for focal pneumonia or edema. 2: Chronic intra and extrahepatic biliary dilatation masses described on prior CTA chest dated 09/17/2021. Consider correlation with MRI of the abdomen withou t and with contrast. Moderate thoracic spondylosis with kyphosis. 3: Small pulmonary nodules measuring 2 mm or less, likely benign.
--- NOTE | ~2024-09-15 | US_ITS ---
EXAMINATION: US venous doppler [facility] DATE: 09/16/2024 08:10 INDICATION: Bilateral lower limb swelling TECHNIQUE: Grayscale ultrasound images without and with compression and Doppler ultrasound images of the bilateral lower extremity veins were obtained. COMPARISON: None. FINDINGS: The visualized portions of right common femoral vein, profunda (deep) femoral vein, femoral vein, pop liteal vein, posterior tibial veins, peroneal veins, gastrocnemius vein and greater saphenous vein ou tflow are patent. The visualized portions of left common femoral vein, profunda femoral vein, femoral vein, popliteal v ein, posterior tibial veins, peroneal veins, gastrocnemius vein and greater saphenous vein outflow ar e patent. IMPRESSION: 1. No deep venous thrombosis in either lower limb. Reviewed, dictated and finalized at location B.
--- NOTE | ~2024-09-15 | XR_ITS ---
EXAMINATION: XR chest 1V portable DATE: 09/15/2024 14:55 INDICATION: Generalized weakness TECHNIQUE: frontal view of the chest was obtained. COMPARISON: Chest radiograph dated 09/12/2023 FINDINGS: Mild increased interstitial pattern in the bilateral lower lungs with some associated bronchial wall thickening. No focal airspace consolidation, pleural effusion or pneumothorax. Heart size is normal. Electronic device projects over the right shoulder. IMPRESSION: 1. Bronchial wall thickening with mild increased initial pattern in the bilateral lower lungs without focal airspace opacities which could be related to bronchitis or mild pulmonary edema. Reviewed, dictated and finalized at location A. IMPRESSION: 1. Bronchial wall thickening with mild increased initial pattern in the bilater al lower lungs without focal airspace opacities which could be related to bronc hitis or mild pulmonary edema.
--- NOTE | 2024-09-15 14:43 | ECG_ITS ---
Test Date: 2024-09-15 16:06:20 Measurements Intervals [place] Rate: 62 P: 100 SD: 179 QRS: -26 QRSD: 147 T: 99 QT: 422 QTc: 432 Interpretive Statements ATRIAL FLUTTER WITH NORMAL VENTRICULAR RESPONSE RIGHT BUNDLE BRANCH BLOCK VOLTAGE CRITERIA FOR LVH BASELINE ARTIFACT- I, II, III, AVR, AVL, AVF, V1-V6 ABNORMAL ECG No previous ECG available for comparison Electronically Signed On 09-15-2024 19:35:32 CDT by Les Oneill D.O.
[2024-09-15 14:58] LABS: Basophils Percent Auto 0.5 % (0.2-1.2); Eosinophils Absolute Auto 0.1 K/mm3 (0-0.3); Eosinophils Percent Auto 0.9 % (0-4.4); Hemoglobin 12.9 g/dL (14.0-18.0); Immature Granulocyte Absolute 0.02 K/mm3 (0.00-0.031); Immature Granulocyte Percent A 0.3 % (0-0.5); Lymphocytes Absolute Auto 1.08 K/mm3 (0.9-3.2); Lymphocytes Percent Auto 18.5 % (18.3-44.2); Mean Corpuscular HGB Conc 31.5 g/dl (32-36); Mean Corpuscular Hemoglobin 29.9 pg (26-34); Mean Corpuscular Volume 94.9 fl (80-100); Mean Platelet Volume 8.8 fl (7.4-10.4); Monocytes Absolute Auto 0.7 K/mm3 (0.1-0.6); Monocytes Percent Auto 12.5 % (2.6-8.5); Neutrophils Absolute Auto 3.9 K/mm3 (1.3-6.7); Neutrophils Percent Auto 67.3 % (45.5-73.1); Platelet Count Result 204 k/mm3 (150-375); Red Blood Count 4.32 M/mm3 (4.6-6.20); Red Cell Distribution Width 13.9 % (11.5-14.5); White Blood Count 5.8 K/mm3 (4.5-10.0)
[2024-09-15 15:09] LABS: Add Urine Microscopic? YES; Alanine Aminotransferase 52 U/L (6-50); Albumin Level 3.8 g/dL (3.5-5.1); Alkaline Phosphatase 255 U/L (38-126); Anion Gap 5 mmol/L (4-12); Appearance Urine Cloudy (Clear); Aspartate Amino Transferase 108 U/L (17-59); Bacteria Urine None Seen /hpf; Bilirubin Urine 1+ (Negative); Bilirubin,Total 0.9 mg/dL (0.2-1.3); Blood Urea Nitrogen 19 mg/dL (9-20); Blood Urine Negative (Negative); Carbon Dioxide 33 mmol/L (22-30); Chloride 103 mmol/L (98-107); Color Urine Dark Yellow (Yellow); Estimated CRCL calculation 57 ml/min; Estimated Glomerular Filt Rate > 60; Glucose 147 mg/dL (65-110); Glucose Urine UA Negative (Negative); Ketones Urine Trace mg/dL (Negative); Leukocyte Esterase Ur Trace LEU/UL (Negative); Nitrate Urine Negative (Negative); Non Pathogenic Casts 0-2; Potassium 3.8 mmol/L (3.4-5.0); Protein Urine Negative (Negative); RBC Urine 0-2 /hpf (0-2); Sodium 141 mmol/L (137-145); Specific Grav Ur 1.023 (1.001-1.035); Squamous Epithelial Cell Urine None Seen /hpf (Few); WBC Urine 0-5 /hpf (0-3)
--- NOTE | 2024-09-15 16:06 | ED.WEAKNESS ---
HPI - Weakness General Chief complaint: Weakness Stated complaint: Weakness, unable to walk Time Seen by Provider: 09/15/24 15:39 History of Present Illness HPI Narrative: Pt h/o PD saw his neurologist on Monday, had his carbidopa dose increased, since then has been even more shaky than usual, he was alone at home and daughter very concerned that he is unable to care for himself. They are both agreeable to being admitted for placement. Patient denies any chest pain, headache, numbness or weakness anywhere Related Data Home Medications ?Medication ?Instructions ?Recorded ?Confirmed ?Last Taken ?Type omega-3 fatty acids-fish oil 684 1 cap PO DAILY 04/30/20 09/15/24 09/12/23 History mg-1,200 mg capsule,delayed release vitamin B complex (B 1 tablet PO DAILY 09/18/21 09/15/24 09/12/23 History Complex-Vitamin B12 tablet) carbidopa 25 mg-levodopa 100 mg 2 tablet PO TID 03/15/22 09/15/24 09/12/23 History tablet aspirin 81 mg tablet,delayed 81 mg PO DAILY 11/08/22 09/15/24 09/12/23 History release calcium polycarbophil 625 mg 1,250 mg PO DAILY 09/13/23 08/20/24 Unknown History tablet (FiberCon) Allergies Allergy/AdvReac Type Severity Reaction Status Date / Time gabapentin (From Gabarone) Allergy Mild Rash Verified 09/15/24 13:01 Review of Systems Review of Systems: All systems reviewed & are unremarkable except as noted in HPI and below PMFSH Past Medical History Medical History (Updated 09/15/24 @ 18:15 by Sveta Boyle MD) Multiple falls Rhabdomyolysis Pressure ulcer Parkinson disease Neuropathy BPH (benign prostatic hyperplasia) Hypertension Polycythemia Atrial fibrillation Essential (primary) hypertension Surgical History Surgical History Status post surgical removal of malignant neoplasm of skin History of ankle surgery ORIF left ankle S/P ORIF (open reduction internal fixation) fracture Left ankle Family History Family History Sibling Family history of diabetes mellitus in first degree relative Mother Diabetes mellitus Hypertension Father Sudden Social History Social History (Reviewed 10/03/23 @ 07:25 by Nikky Badillo [facility] Social History: The patient is living home alone. He is . He does not have a durable power immigration attorney for healthcare. The patient is retired from [email or web address]. He is a lifelong nonsmoker. He does not use any alcohol or illicit drugs. The patient had 1 daughter and no other children Smoking status: Never smoker Second hand tobacco smoke exposure: No Alcohol intake: never Substance use: never Substance use type: does not use Do You Feel Safe in your Home?: Yes Lack of Transportation: No Lack of Food: Never True Current Housing: I Have Housing Concerned About Future Housing: No Difficulty Paying Gas/Electric Bills: No Difficulty Paying for Meds: No Currently Unemployed: No Education: High School Diploma/GED Difficulty w/ Childcare or Family Care: No Living arrangements: with family Occupation/Education: retired Gender identity (if verbalized by the patient): Male Sexual Orientation (if Verbalized by the Patient): Straight or Heterosexual Spiritual care concerns: No Exam Narrative: EXAMINATION OF ORGAN SYSTEMS/BODY AREAS: Constitutional: Vital signs per nursing GENERAL:[No acute distress, non-toxic appearing.] Very tremulous HEAD: Normal with no signs of head trauma. EYES: EOMI, conjunctiva normal ENT: Hearing grossly intact LUNGS: Nonlabored breathing. HEART: [Regular rate and rhythm] ABD: [Soft], [nontender to palpation] EXT: Normal range of motion SKIN: [No rashes or lesions.] NEURO: [Alert. Normal strength upper and lower extremities bilaterally without drift.] Normal sensation all extremities. Quite tremulous PSYCH: Normal affect Course Vital Signs Vital signs: Vital Signs Temperature 97.5 F L 09/15/24 13:11 Pulse Rate 69 09/15/24 13:11 Respiratory Rate 14 09/15/24 13:11 Blood Pressure 136/77 09/15/24 13:11 Pulse Oximetry 97 09/15/24 13:11 Oxygen Delivery Room Air 09/15/24 13:11 Temperature 97.5 F L 09/15/24 13:11 Pulse Rate 69 09/15/24 13:11 Respiratory Rate 14 09/15/24 13:11 Blood Pressure 136/77 09/15/24 13:11 Pulse Oximetry 97 09/15/24 13:11 Oxygen Delivery Room Air 09/15/24 13:11 MDM - Weakness MDM Narrative Medical decision making narrative: Patient presents with inability to care for himself after becoming more shaky than usual, he does have history of Parkinson's and does have tremors normally, however since the dose of carbidopa the increased, thinks that has been worse. Last seen by daughter on Monday and she is on again today and noted that he was so shaky that he was unable to even get himself up with to the bathroom and that is when she felt he needed to be admitted for placement. He otherwise lives alone at home. Labs obtained here with elevated LFTs however this is chronic for patient. Infectious workup and labs otherwise unremarkable with normal UA; 2 kg with a lot of artifact she but shows normal sinus rate 62, RI 179 for care: 37, QTC 432, no significant ST elevations or depressions and signs of acute ischemia or arrhythmia. Discussed with hospitalist for admission Final impression: 1) Tremors 2) Failure to thrive 3) Inability to ambulate Lab Data 09/15/24 14:49 09/15/24 14:49 Labs: Lab Results 09/15/24 Range/Units 14:49 WBC 5.8 (4.5-10.0) K/mm3 RBC 4.32 L (4.6-6.20) M/mm3 Hgb 12.9 L (14.0-18.0) g/dL Hct 41.0 L (42.0-52.0) % MCV 94.9 (80-100) fl MCH 29.9 (26-34) pg MCHC 31.5 L (32-36) g/dl RDW 13.9 (11.5-14.5) % Plt Count 204 (150-375) k/mm3 MPV 8.8 (7.4-10.4) fl Immature Gran % (Auto) 0.3 (0-0.5) % Neut % (Auto) 67.3 (45.5-73.1) % Lymph % (Auto) 18.5 (18.3-44.2) % [place] % (Auto) 12.5 H (2.6-8.5) % Eos % (Auto) 0.9 (0-4.4) % Baso % (Auto) 0.5 (0.2-1.2) % Lymph # (Auto) 1.08 (0.9-3.2) K/mm3 [place] # (Auto) 0.7 H (0.1-0.6) K/mm3 Eos # (Auto) 0.1 (0-0.3) K/mm3 Baso # (Auto) 0.0 (0.0-0.1) K/mm3 Abs Immat Gran (auto) 0.02 (0.00-0.031) K/mm3 Absolute Neuts (auto) 3.9 (1.3-6.7) K/mm3 Absolute Nucleated RBC 0.000 (0.0-0.012) K/mm3 Nucleated RBC % 0.0 (0.0-0.2) % Sodium 141 (137-145) mmol/L Potassium 3.8 (3.4-5.0) mmol/L Chloride 103 (98-107) mmol/L Carbon Dioxide 33 H (22-30) mmol/L Anion Gap 5 (4-12) mmol/L BUN 19 (9-20) mg/dL Creatinine 0.75 (0.7-1.3) mg/dL Estim Creat Clear Calc 57 ml/min Estimated GFR > 60 (59 - ) Glucose 147 H (65-110) mg/dL Calcium 9.0 (8.4-10.2) mg/dL Total Bilirubin 0.9 (0.2-1.3) mg/dL AST 108 H (17-59) U/L ALT 52 H (6-50) U/L Alkaline Phosphatase 255 H (38-126) U/L Total Protein 7.0 (6.3-8.2) g/dL Albumin 3.8 (3.5-5.1) g/dL Urine Color Dark yellow (Yellow) Urine Appearance Cloudy H (Clear) Urine pH 5.0 (5.0-9.0) Ur Specific [place] 1.023 (1.001-1.035) Urine Protein Negative (Negative) mg/dL Urine Glucose (UA) Negative (Negative) mg/dL Urine Ketones Trace H (Negative) mg/dL Ur Blood (Man) Negative (Negative) Urine Nitrate Negative (Negative) Urine Bilirubin 1+ H (Negative) Urine Urobilinogen 1.0 (<2.0) mg/dL Leukocyte Esterase Rfl Trace H (Negative) TERENCE/UL Urine RBC 0-2 (0-2) /hpf Urine WBC 0-5 (0-3) /hpf Ur Squamous Epith Cells None seen (Few) /hpf Urine Bacteria None seen /hpf Urine Casts 0-2 Discharge Plan Discharge Clinical Impression: Resting tremor, Gait abnormality Patient Disposition: Still a Patient Condition: Stable
[2024-09-15] MEDS: CARBIDOPA/LEVODOPA 12.5/50 MG 1 TABLET, CARBIDOPA/LEVODOPA 25/100 MG 1 TABLET 2 TABLET PO (18:01)
--- OUTSIDE RECORDS SUMMARY | 2024-09-15 18:06 | XMS_ITS | Clinical Summary ---
Author Organization [facility] Address [address] [place] [address] Phone Care Team Providers Care Soliciting Freight Agent Name Role Phone Justin Baltazar APRN, TARIFF SUPERVISOR Primary Care Provider Benedict Ayers MD Unavailable [phone] Allergies Active Allergy Reactions Criticality Noted Date Comments Gabapentin Hives 11/29/2022 Medications polycarbophil calcium (FIBERCON) 625 MG Tablet Take 625 mg by mouth daily. Active Sumner-3 Fatty Acids (OMEGA-3 FISH OIL PO) Take by mouth. Ac tive aspirin EC 81 MG Tablet Delayed Response Take 81 mg by mouth daily. Active B Complex Vitamins (VITAMIN B COMPLEX PO) Take by mouth. Act will amLODIPine (NORVASC) 5 MG Tablet Take 5 mg by mouth daily. Active Alpha-Lipoic Acid 600 MG Capsule Take 1 Capsule by mouth daily. 30 Capsule 3 3 Active Additional Information Patient not taking.Reported on 09/10/2024 carbidopa-levo dopa (SINEMET) 25-100 MG Tablet Take 2.5 Tablets by mouth 4 times daily. 1/2 hour before eating 900 Tablet 3 5 Active carbidopa-levo dopa (SINEMET) 25-100 MG Tablet Take 3 Tablets by mouth 4 times daily. 1/2 hour before eating 1080 Tablet 3 5 09/11/19 25 Discontin ued(Reord er) Active Problems Problem Noted Date Diagnosed Date Parkinson's disease 05/18/2022 Encounters Date Type Department Care Team Description 09/10/2024 9:30 AM CDT [facility] [address] [place] [address] Benedict Ayers MD Frequent falls (Primary Dx); Parkinson's disease without dyskinesia or fluctuating manifestations (HCC); Weight loss; RLS (restless legs syndrome) Discharge Disposition: Discharged to home or Selfcare 09/10/2024 Travel from Last 3 Months Family History Medical [...] Sign Reading Time Taken Comments Blood Pressure 124/62 09/10/2024 9:14 AM CDT Pulse 72 09/10/2024 9:14 AM CDT Temperature 36.7 C (98.1 F) 09/10/2024 9:14 AM CDT Respiratory Rate 16 09/10/2024 9:14 AM CDT Oxygen Saturation 98% 09/10/2024 9:14 AM CDT Inhaled Oxygen Concentration - - Weight 84.8 kg (187 lb) 09/10/2024 9:14 AM CDT Height 175.3 cm (5' 9) 09/10/2024 9:14 AM CDT Body Mass Index 27.62 09/10/2024 9:14 AM CDT Plan of Treatment Upcoming Encounters Date Type Department Care Team (Late st Contact Info) Description 03/11/2025 9:00 AM PLUG OVERWRAP MACHINE TENDER Office Visit [facility] [address] [place] [address] Benedict Ayers MD [address] [place] [address] Health Maintenance Due Date Last Done Comments Hepatitis C Virus (HCV) Screening 1935 TdaP Immunization 1935 Pneumococcal Immunization (5 0+ years) (1 of 1 - PCV) 1986 Zoster Immunization (1 of 2) 1986 Respiratory Syncytial Virus (RSV) Immunization (Adult) (1 - 1-dose 75+ series) 2011 SARS-COV-2 Immunization (1 - season) 2023 Influenza Immunization (Seas on Ended) 2024 Hepatitis B Immunization Aged Out No longer eligible based on patient's age to complete this topic Human Papillomavirus (HPV) Immunization Aged Out No longer eligible b ased on patient's age to complete this topic Meningococcal Immunization (ACWY) Aged Out No longer eligible based on patient's age to complete this topic Rotavirus Immunization Aged Out No lo nger eligible based on patient's age to complete this topic Insurance MEDICARE [facility] Care Teams Soliciting Freight Agent Relationship Specialty Start Date End Date Justin Baltazar, BEATER TENDER, TARIFF SUPERVISOR PCP - General Adult Medicine 12/10/21 Benedict Ayers MD [address] [place] [phone] Consulting Physician Neurology 02/14/22
--- OUTSIDE RECORDS SUMMARY | 2024-09-15 18:06 | XMS_ITS | Encounter Summary ---
Author Organization [facility] Address [address] [facility] [address] [place] [address] Care Team Providers Care Home Theater Experience Expert Name Role Phone Unavailable Primary Care Provider Unavailabl e Encounter Details Date Type Department Care Team (Late st Contact Info) Description 03/04/2024 Lab Requisition [facility] - DermPath Lab [address] [facility] [place] [address] Arlin Howe MD [address] [address] [place] [address] Social History Tobacco Use Types Packs/Day Years Used Date Smoking Tobacco: Never Assessed Sex and Gender Information Value Date Recorded Sex Assigned at Not on file Legal Sex Male 9:01 AM STATE ASSESSED PROPERTIES DIRECTOR Gender Identity Not on file Sexual Orientation Not on file documented as of this encounter Plan of Treatment Not on file documented as of this encounter Procedures Procedure Name Priority Date/Time Associated Diagnosis Comments DERMATOPATHOLOGY Routine 03/04/2024 1:08 PM STATE ASSESSED PROPERTIES DIRECTOR documented in this encounter Results * DERMATOPATHOLOGY (03/04/2024 1:08 PM STATE ASSESSED PROPERTIES DIRECTOR) Case Report Dermatopathology Report Case: [id number] Authorizing Provider: Arlin Howe MD Collected: 03/04/2024 01:08 PM Ordering Location: [facility] Physician [facility] - Received: 03/05/2024 01:25 PM DermPath Lab Pathologist: Lilliam Odonnell MD Specimen: Skin, right orthodoxy 12:30 PM STATE ASSESSED PROPERTIES DIRECTOR DERMATOPATHOLOGY LABORATORY Addendum 1 This lesion is present at the margin of the specimen. 12:30 PM STATE ASSESSED PROPERTIES DIRECTOR DERMATOPATHOLOGY LABORATORY Addendum electronically signed by Lilliam Odonnell MD on 03/11/2024 at 1230 STATE ASSESSED PROPERTIES DIRECTOR Final Diagnosis Specimen A. SKIN, right orthodoxy: BASAL CELL CARCINOMA (C44.319) (see microscopic description and comment) 12:30 PM [facility] DERMATOPATHOLOGY LABORATORY at 1502 STATE ASSESSED PROPERTIES DIRECTOR Clinical History R/o BCC, non healing pink papule 12:30 PM [facility] DERMATOPATHOLOGY LABORATORY Gross Description Specimen A: Received is one formalin filled container labeled with the patient's name and designated right orthodoxy. The specimen consists of a shave biopsy measuring 13x7x1 mm. Jar 0. 12:30 PM [facility] DERMATOPATHOLOGY LABORATORY Microscopic Description Specimen A. SKIN, right orthodoxy: The specimen consists of aggregates of basaloid cells, located within the superficial dermis, with high nuclear to cytoplasmic ratio and peripheral palisading. COMMENT: The small size of the specimen limits subtyping of the lesion. 12:30 PM [facility] DERMATOPATHOLOGY LABORATORY Disclaimer An external and internal positive and negative controls are appropriate for the histochemical, immunohistochemical and immunofluorescence stain(s) in this case (if any), except where stated explicitly. The performance characteristics of the stain(s) cited in this report were developed and its performance characteristic determined by the Dermatopathology Laboratory at [facility], directed by Dr. Ryan Fong. These tests need not be, and therefore are not, approved by the [place] Food and Drug Administration. The tests are used for clinical purposes. Billing Codes Specimen Charges Stain Charges 79538 1 12:30 PM [facility] DERMATOPATHOLOGY LABORATORY Embedded Images 12:30 PM [facility] DERMATOPATHOLOGY LABORATORY Pathology/Cytolo gy TISSUE SPECIMEN FROM SKIN / Unknown 03/04/2024 1:08 PM STATE ASSESSED PROPERTIES DIRECTOR 03/05/2024 1:25 PM STATE ASSESSED PROPERTIES DIRECTOR us Arlin Howe MD LAB - PATHOLOGY/CYTOLOGY ORD ERABLES Edited Result - Final DERMATOPATHOLOGY LABORATORY [facility] - Department of Dermatology [address], [address] [phone] documented in this encounter Visit Diagnoses Not on filedocumented in this encounter
--- OUTSIDE RECORDS SUMMARY | 2024-09-15 18:06 | XMS_ITS | Encounter Summary ---
Author Organization [facility] Address [address] 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
--- OUTSIDE RECORDS SUMMARY | 2024-09-15 18:06 | XMS_ITS | Encounter Summary ---
Author Organization [facility] Address [address] [place] [address] Care Team Providers Care Brazer Controlled Atmospheric Furnace Name Role Phone Unavailable Primary Care Provider Unavailabl e Encounter Details Date Type Department Care Team (Late st Contact Info) Description 11/10/2022 Lab Requisition [facility] - DermPath Lab [address] [facility], [place] [address] Arlin Howe MD [address] [facility] [address] [place] [address] Social History Tobacco Use Types Packs/Day Years Used Date Smoking Tobacco: Never Assessed Sex and Gender Information Value Date Recorded Sex Assigned at Not on file Legal Sex Male 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 Gender Identity Not on file Sexual Orientation Not on file documented as of this encounter Plan of Treatment Not on file documented as of this encounter Procedures Procedure Name Priority Date/Time Associated Diagnosis Comments DERMATOPATHOLOGY Routine 11/10/2022 11:1 9 AM CDT documented in this encounter Results * DERMATOPATHOLOGY (11/10/2022 11:19 AM CDT) Case Report Dermatopathology Report Case: [id number] Authorizing Provider: Arlni Howe MD Collected: 11/10/2022 11:19 AM Ordering Location: [facility] DermPath Lab Received: 11/10/2022 04:06 PM Pathologist: Lilliam Odonnell MD Specimen: Skin, right knee 11:06 AM CDT DERMATOPATHOLOGY LABORATORY Final Diagnosis Specimen A. 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 The specimen consists of a punch biopsy measuring 4x4x5 mm. Jar 0. 3 11:06 AM [facility] DERMATOPATHOLOGY LABORATORY Microscopic Description Specimen A. SKIN, [...] eczematous pigmented purpuric dermatosis. 3 11:06 AM [facility] DERMATOPATHOLOGY LABORATORY Disclaimer An external and internal positive and negative controls are appropriate for the histochemical, immunohistochemical and immunofluorescence stain(s) in this case (if any), except where stated explicitly. The performance characteristics of the stain(s) cited in this report were developed and its performance characteristic determined by the Dermatopathology Laboratory at [facility], directed by Dr. Ryan Fong. These tests need not be, and therefore are not, approved by the [place] Food and Drug Administration. The tests are used for clinical purposes. Billing Codes Specimen Charges Stain Charges 03876 1 12079 60108 1 1 3 11:06 AM CDT DERMATOPATHOLOGY LABORATORY Embedded Images 3 11:06 AM T DERMATOPATHOLOGY LABORATORY Pathology/Cytolo gy TISSUE SPECIMEN FROM SKIN / Unknown 11/10/2022 11:19 AM CDT 11/10/2022 4:06 PM CDT us Arlin Howe MD LAB - PATHOLOGY/CYTOLOGY ORD ERABLES Final Result DERMATOPATHOLOGY LABORATORY [facility] - Department of Dermatology [address] [phone] documented in this encounter Visit Diagnoses Not on filedocumented in this encounter
--- OUTSIDE RECORDS SUMMARY | 2024-09-15 18:06 | XMS_ITS | Clinical Summary ---
Author Organization [facility] Address [address] [place] [address] Care Team Providers Care Healthcare Translator Name Role Phone Unavailable Primary Care Provider Unavailabl e Source Comments [facility] [employer],non-owned Affiliates and Associated Physician Practices is amultiple site organization consisting of ambulatory clinics and hospital sitesin [place], [place], [place] and [place]. This disclosure is being madepursuant to the Care Everywhere program and may not contain all information available regarding this patient. 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
--- OUTSIDE RECORDS SUMMARY | 2024-09-15 18:06 | XMS_ITS | Encounter Summary ---
Author Organization [facility] Address [address] [place] [address] Phone Care Team Providers Care Car Changer Name Role Phone Justin Baltazar APRN, ROOM SERVICE SUPERVISOR Primary Care Provider Benedict Ayers MD Unavailable [phone] Reason for Visit * Reason Comments Medication Refill Encounter Details Date Type Department Care Team (Late Contact Info) Description 09/08/2022 Refill [facility] - Neurology [facility] [address] [place] [address] Benedict Ayers MD [address] [place] [address] Medication Refill Social History Tobacco [...] st Contact Info) Description 03/11/2025 9:00 AM ENVIRONMENTAL RESEARCH PROJECT MANAGER Office Visit [facility] Neu[facility] [address] [place] [address] Benedict Ayers MD [address] [place] [address] documented as of this encounter Visit Diagnoses Not on filedocumented in this encounter Care Teams Car Changer Relationship Specialty Start Date End Date Justin Baltazar APRN, JACOB PCP - General Adult Medicine 12/10/21 Benedict Ayers MD [address] [place] [address] Consulting Physician Neurology 02/14/22 documented as of this encounter
--- OUTSIDE RECORDS SUMMARY | 2024-09-15 18:06 | XMS_ITS | Encounter Summary ---
Author Organization [facility] Address [address] [place] [address] Phone Care Team Providers Care Chicken Stuffer Name Role Phone Justin Baltazar APRN, FAMILY ASSISTANT Primary Care Provider Benedict Ayers MD Unavailable Reason for Visit * Reason Comments Medication Refill Encounter Details Date Type Department Care Team (Late st Contact Info) Description 02/28/2023 Refill [facility] - Neurology [facility] [address] [place] [address] Benedict Ayers MD [address] [place] [address] Medication Refill Social History Tobacco [...] Dept 11/29/22 Office Visit Benedict Ayers MD [facility] Neurology [facility] 08/15/22 Office Visit Benedict Ayers MD [facility] Neurology [facility] Showing recent visits within past 270 days and meeting all other requirements Future Appointments Date Type Provider Dept 05/29/23 Appointment Benedict Ayers MD [facility] Showing future appointments within next 90 days and meeting all other requirements Passed - Blood pressure on record in past 12 months Clinician-entered: BP Readings from Last 3 Encounters: 11/29/22 130/72 08/15/22 132/78 05/16/22 118/72 Patient-entered: No data recorded ER REPAIRER documented in this encounter Plan of Treatment Upcoming Encounters Date Type Department Care Team (Late st Contact Info) Description 03/11/2025 9:00 AM ZIPPER REPAIRER [facility] [address] [place] [phone] Benedict Ayers MD [address] [place] [address] documented as of this encounter Visit Diagnoses Not on filedocumented in this encounter Care Teams Chicken Stuffer Relationship Specialty Start Date End Date Justin Baltazar APRN, JACOB PCP - General Adult Medicine 12/10/21 Benedict Ayers MD [address] [place] [address] Consulting Physician Neurology 02/14/22 documented as of this encounter
--- OUTSIDE RECORDS SUMMARY | 2024-09-15 18:06 | XMS_ITS | Encounter Summary ---
Author Organization [facility] Address [address] [facility] [place] [address] Care Team Providers Care Livestock Farm Manager Name Role Phone Unavailable Primary Care Provider Unavailabl e Encounter Details Date Type Department Care Team (Late st Contact Info) Description 11/10/2022 Lab Requisition [facility] - DermPath Lab [address] 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 Gender Identity Not on file Sexual Orientation Not on file documented as of this encounter Plan of Treatment Not on file documented as of this encounter Procedures Procedure Name Priority Date/Time Associated Diagnosis Comments IMMUNOFLUORESCENT STUDY DERM Routine 11/10/2022 12:00 AM CDT documented in this encounter Results * IMMUNOFLUORESCENT STUDY DERM (11/10/2022 12:00 AM CDT) Case Report Dermatopathol ogy Report Case: [id number] Authorizing Provider: Arlin Howe MD Collected: 11/10/2022 12:00 AM Ordering Location: [facility] DermPath Lab Received: 11/10/2022 04:07 PM Pathologist: Lilliam Odonnell MD Specimen: Skin, right knee 11:08 AM CDT DERMATOPATHOLOGY LABORATORY Final Diagnosis Specimen A. SKIN, right knee: COLLOID BODIES (L98.9) TRACE LINEAR GRANULAR BASEMENT MEMBRANE ZONE POSITIVITY WITH C3 (L98.9) (see fixed tissue results) ([id number]) (see microscopic description and comment) 11:08 AM CDT DERMATOPATHOLOGY LABORATORY at 1108 CDT Direct Immunofluorescence Report - Specimen A Specimen A IgA IgM IgG C3 CollV Fibrinogen Epidermis Negative Negative Negative Negative Negative Negative Basement Membrane +1 Colloids +1 Colloids Negative Trace Linear Granular 2+ Negative Vessels Negative Negative Negative Negative 2+ Negative Interstitium Negative Negative Negative Negative Negative Non specific 3 11:08 AM CDT DERMATOPATHOLOGY LABORATORY Clinical History PINK PLAQUES DRUG VS BP VS URTICARIA 3 11:08 AM CDT DERMATOPATHOLOGY LABORATORY Gross Description Specimen A: Received is one Suraj's media filled container labeled with the patient's name and designated right knee. The specimen consists of a punch biopsy measuring 4x3x6 mm. The specimen is submitted in whole for direct immunofluores cence testing. 3 11:08 AM T DERMATOPATHOLOGY LABORATORY Microscopic Description Specimen A. SKIN, [...] chronically sun exposed skin. 3 11:08 AM T DERMATOPATHOLOGY LABORATORY Disclaimer An external and internal positive and negative controls are appropriate for the histochemical , immunohistoch emical and immunofluores cence stain(s) in this case (if any), except where stated explicitly. The performance characteristi cs of the stain(s) cited in this report were developed and its performance characteristi c determined by the Dermatopathol ogy Laboratory at [facility], directed by Dr. Ryan Fong. These tests need not be, and therefore are not, approved by the [place] Food and Drug Administratio n. The tests are used for clinical purposes. Billing Codes Specimen Charges Stain Charges 44959 65775 85266 61492 95842 83967 1 1 1 1 1 1 3 11:08 AM CDT DERMATOPATHOLOGY LABORATORY Embedded Images 3 11:08 AM CDT DERMATOPATHOLOGY LABORATORY Pathology/Cytolog y TISSUE SPECIMEN FROM SKIN / Unknown 11/10/2022 11/10/2022 4:07 PM CDT us Arlin Howe MD LAB - PATHOLOGY/CYTOLOGY ORD ERABLES Final Result DERMATOPATHOLOGY LABORATORY [facility] - Department of Dermatology [facility] [address] [place] [address], [address] [phone] documented in this encounter Visit Diagnoses Not on filedocumented in this encounter
--- NOTE | 2024-09-15 20:03 | ADMGEN ---
This patient, Saad Norton, was admitted to Medical Room 248-. Patient/family oriented to hospital policies and general routines including ID bracelet, bed and alarms, visiting hours, pain management, procedures, bathroom and other care routines, personal items, smoking policy, room service/diet, and visiting hours. Information on how to activate the Rapid Response Team has been discussed. Patient/Family are encouraged to report perceived risks to care and to ask questions if they do not understand what they are told or what they should do.
--- NOTE | 2024-09-15 20:20 | P.HP_ITS ---
H&P: HPI History of Present Illness Date/Time: 09/15/24 20:00 Chief Complaint: Weakness, unable to walk. Narrative: This is an 81-year-old male with Parkinson, hypertension, paroxysmal atrial fibrillation, and benign prostatic hyperplasia who presented to the emergency department via private vehicle accompanied by his daughter for evaluation of weakness and the inability to walk. He saw his neurologist, Dr. Ayers, last Monday and his carbidopa-levodopa was increased. Since that time he has been increasingly tremulous and is so weak that he is having difficulties walking. Daughter is concerned that he is unable to care for himself as he lives alone. He ambulates without the aid of a cane or a walker but admits that he does not get around too well. He had a fall last week and had to call 911 for a lift assist. He has otherwise been feeling okay and denies fever, chills, sweats, cold and flu symptoms, chest pain, shortness of breath, orthopnea, nausea, vomiting, diarrhea, dysuria, focal weakness, paresthesias. In the ED: Vital signs were stable on arrival. Labs were significant for hemoglobin of 12.9, carbon dioxide 33, glucose 147, AST 108, ALT 52, alkaline phosphatase 255. Chest x-ray showed findings of possible bronchitis or pulmonary edema. No interventions were undertaken. He is being admitted to the hospital in this setting for PT/OT evaluation and probable rehab placement. Review of Systems Review of Systems: 12 systems were reviewed and are negativ e except for as per HPI. [facility] Past Medical History Medical History Benign prostatic hyperplasia Multiple falls Rhabdomyolysis Pressure ulcer Parkinson disease Neuropathy Hypertension Atrial fibrillation Surgical History Surgical History Status post surgical removal of malignant neoplasm of skin History of ankle surgery ORIF left ankle Family History Family History Sibling Family history of diabetes mellitus in first degree relative Mother Diabetes mellitus Hypertension Father Sudden Social History Social History Social History: Surrogate medical decision maker: Joey Leivas, daughter. Code status: Smoking status: Never smoker Second hand tobacco smoke exposure: No Alcohol intake: never Substance use: never Substance use type: does not use Do You Feel Safe in your Home?: Yes Lack of Transportation: No Lack of Food: Never True Current Housing: I Have Housing Concerned About Future Housing: No Difficulty Paying Gas/Electric Bills: No Difficulty Paying for Meds: No Currently Unemployed: No Education: High School Diploma/GED Difficulty w/ Childcare or Family Care: No Living arrangements: alone Additional living arrangements comments: . Lives in his own home in [place]. He has 1 daughter. Occupation/Education: retired Additional occupation/education comments: Retired from [email or web address]. Spiritual care concerns: No Meds Home Medications and Allergies Home Medications ?Medication ?Instructions ?Recorded ?Confirmed ?Type omega-3 fatty acids-fish oil 684 1 cap PO DAILY 04/30/20 09/15/24 History mg-1,200 mg capsule,delayed release vitamin B complex (B 1 tablet PO DAILY 09/18/21 09/15/24 History Complex-Vitamin B12 tablet) carbidopa 25 mg-levodopa 100 mg 2 tablet PO Q6H 03/15/22 09/15/24 History tablet aspirin 81 mg tablet,delayed 81 mg PO DAILY 11/08/22 09/15/24 History release calcium polycarbophil 625 mg 1,250 mg PO DAILY 09/13/23 09/15/24 History tablet (FiberCon) amlodipine 5 mg tablet See Rx Instructions .Route 04/19/24 09/15/24 Rx .COMPLEX #90 tabs Allergies Allergy/AdvReac Type Severity Reaction Status Date / Time gabapentin (From Gabarone) Allergy Mild Rash Verified 09/15/24 13:01 Vital Signs Vital Signs - 24 hr 09/15/24 13:11 09/15/24 13:30 09/15/24 14:30 Temperature 97.5 F L Pulse Rate 69 65 65 Respiratory Rate 14 16 16 Blood Pressure 136/77 123/57 L 123/54 L Pulse Oximetry 97 94 94 Oxygen Delivery Room Air 09/15/24 15:30 09/15/24 16:30 09/15/24 17:00 Temperature Pulse Rate 65 65 59 L Respiratory Rate 16 16 18 Blood Pressure 117/49 L 121/50 L 116/53 L Pulse Oximetry 97 97 97 Oxygen Delivery 09/15/24 18:00 09/15/24 19:00 Temperature Pulse Rate 65 70 Respiratory Rate 16 16 Blood Pressure 126/57 L 137/61 Pulse Oximetry 95 96 Oxygen Delivery Exam Narrative: General: Nontoxic-appearing male sitting up in bed in no acute distress. Weight: 88.6 kg. BMI: 29.7. HEENT: PERRL, EOMI. Sclera anicteric. Oral mucosa moist. Neck: Supple. Respiratory: Lungs are clear to auscultation bilaterally. Cardiovascular: Regular rate and rhythm with S1-S2. Gastrointestinal: Abdomen is soft, nontender, and nondistended with positive bowel sounds. Skin: Warm and dry. Extremities: No cyanosis or clubbing. Bilateral lanny ankle edema, left greater than right. Neurological: Alert. Cranial nerves 2-12 are grossly intact. Speech is clear. No facial asymmetry. Tremors of the upper extremities. Masked faces. No gross focal deficits to casual conversation. Psychiatric: Pleasant and cooperative with normal mood and affect. Judgment and insight intact. H&P: Results Labs Labs: Short CBC 09/15/24 Range/Units 14:49 WBC 5.8 (4.5-10.0) K/mm3 Hgb 12.9 L (14.0-18.0) g/dL Hct 41.0 L (42.0-52.0) % Plt Count 204 (150-375) k/mm3 BMP 09/15/24 14:49 Sodium 141 Potassium 3.8 Chloride 103 Carbon Dioxide 33 H BUN 19 Creatinine 0.75 Glucose 147 H Calcium 9.0 Liver Function 09/15/24 Range/Units 14:49 Total Bilirubin 0.9 (0.2-1.3) mg/dL AST 108 H (17-59) U/L ALT 52 H (6-50) U/L Alkaline Phosphatase 255 H (38-126) U/L Albumin 3.8 (3.5-5.1) g/dL Urine 09/15/24 Range/Units 14:49 Urine Color Dark yellow (Yellow) Urine Appearance Cloudy H (Clear) Urine pH 5.0 (5.0-9.0) Ur Specific [place] 1.023 (1.001-1.035) Urine Protein Negative (Negative) mg/dL Urine Glucose (UA) Negative (Negative) mg/dL Impressions Chest X-Ray 09/15/24 15:18 IMPRESSION: 1. Bronchial wall thickening with mild increased initial pattern in the bilateral lower lungs without focal airspace opacities which could be related to bronchitis or mild pulmonary edema. Assessment and Plan Assessment and plan (1) Generalized weakness: Code(s): R53.1 - Weakness Status: Acute (2) Transaminitis: Code(s): R74.01 - Elevation of levels of liver transaminase levels Status: Acute (3) Atrial flutter: Code(s): I48.92 - Unspecified atrial flutter Status: Acute (4) Parkinsons: Code(s): G20 - Parkinson's disease Status: Acute (5) Benign prostatic hyperplasia: Code(s): N40.0 - Benign prostatic hyperplasia without lower urinary tract symptoms Status: Acute (6) Hypertension: Code(s): I10 - Essential (primary) hypertension Status: Acute (7) Ankle edema: Code(s): M25.473 - Effusion, unspecified ankle Status: Acute Plan The patient presented to the emergency department for evaluation of increasing tremors and weakness since having an increase in his carbidopa-levodopa last Monday as detailed in HPI. Labs, imaging, EKG, and all reports were personally reviewed. Symptoms coincide with the increase in his medication and thus I will ask Neurology to see him in consultation (the patient's own neurologist is not on staff this facility). For now we will go back to the dose he was taking prior to the increase last week which is 25-100 mg, 2 tablets 4 times a day. He is in atrial flutter and is rate controlled without obvious symptoms however I wonder if this could be contributing somewhat to his weakness. Chest x-ray also shows findings of possible pulmonary edema thus will obtain an echocardiogram. There is no evidence to suggest underlying infection and no focal findings were noted on examination. Electrolytes and renal function are within normal limits. Check orthostatic vital signs. Initiate fall precautions. Consult PT/OT and care coordination for probable rehab or assisted living placement. Liver enzymes are elevated and have been so in the past. His abdominal exam is benign though will obtain a right upper quadrant ultrasound and check hepatitis panel, creatine kinase, and acetaminophen levels. Continue to trend for now. EKG shows atrial flutter and he is rate controlled. The patient tells me that he had an episode of atrial fibrillation many years ago and was never on anticoagulation. As he is a fall risk, will hold on initiating anticoagulation at this time. Check venous Doppler ultrasounds to rule out DVT given lanny ankle edema. Blood pressures were reviewed and they are stable. His home medications will be reviewed and resumed as appropriate. Findings and treatment plan were discussed with the patient. Questions were solicited and answered to satisfaction. The patient's medical management will be taken over by the hospitalist team in a.m. Quality VTE Prophylaxis VTE prophylaxis: mechanical ordered If No VTE Prophylaxis Answer both mechanical and pharmacologic: Reason no pharmacologic proph: medical contraindication (fall risk) The patient has been admitted under observation status. Hospitalist MIPS Advance Care Plan I have confirmed that the patient's Advanced Care Plan is present, code status is documented, or surrogate decision maker is listed in patient medical record.: Yes Medication Reconciliation I have utilized all available resources to obtain, update and review the patients current medications (includes all prescriptions, OTC, herbals, cannabis, and nutritional supplements).: Yes
[2024-09-15 21:31] LABS: Creatine Kinase 137 U/L (55-170)
[2024-09-15 21:34] LABS: Acetaminophen < 10 ug/mL (10-30)
[2024-09-15] MEDS: CARBIDOPA/LEVODOPA 25/100 MG TABLET 2 TABLET PO (22:12)
[2024-09-15 22:22] LABS: Hepatitis B Surface Antigen Negative (Negative)
[2024-09-15 22:28] LABS: HAV RESULT Negative (Negative); Hepatitis B Core IgM Result Negative (Negative)
[2024-09-15 22:40] LABS: Hepatitis C Virus Antibody Negative (Negative)
[2024-09-16] VITALS (12 sets, daily range): BP systolic 114–164; BP diastolic 46–109; PULSE 56–104; RESP 14–18; TEMP 36.3–36.8; O2SAT 96–99
[2024-09-16] MEDS: CARBIDOPA/LEVODOPA 25/100 MG TABLET 2 TABLET PO ×4 (04:43→22:35)
[2024-09-16 05:24] LABS: Hematocrit 40.7 % (42.0-52.0); Hemoglobin 12.9 g/dL (14.0-18.0); Mean Corpuscular HGB Conc 31.7 g/dl (32-36); Mean Corpuscular Hemoglobin 29.9 pg (26-34); Mean Corpuscular Volume 94.4 fl (80-100); Mean Platelet Volume 8.9 fl (7.4-10.4); Platelet Count Result 207 k/mm3 (150-375); Red Blood Count 4.31 M/mm3 (4.6-6.20); Red Cell Distribution Width 13.7 % (11.5-14.5)
[2024-09-16 05:39] LABS: Alanine Aminotransferase 20 U/L (6-50); Albumin Level 3.5 g/dL (3.5-5.1); Alkaline Phosphatase 238 U/L (38-126); Anion Gap 4 mmol/L (4-12); Aspartate Amino Transferase 143 U/L (17-59); Bilirubin,Total 0.8 mg/dL (0.2-1.3); Blood Urea Nitrogen 15 mg/dL (9-20); Calcium 8.6 mg/dL (8.4-10.2); Carbon Dioxide 28 mmol/L (22-30); Chloride 105 mmol/L (98-107); Estimated CRCL calculation 78 ml/min; Estimated Glomerular Filt Rate > 60; Glucose 89 mg/dL (65-110); Potassium 3.9 mmol/L (3.4-5.0); Sodium 137 mmol/L (137-145)
[2024-09-16] MEDS: calcium polycarbophiL 625 MG TABLET 1250 MG PO (08:31)
[2024-09-16] MEDS: ASPIRIN 81 MG ENTERIC TABLET PO (08:31)
[2024-09-16] MEDS: amLODIPine BESYLATE 5 MG TABLET BY MOUTH (08:31)
[2024-09-16] MEDS: OMEGA 3 POLYUNSAT FATTY ACIDS 1 GM CAP PO (08:31)
[2024-09-16] MEDS: VITAMIN B COMPLEX CAPSULE 1 CAP PO (08:31)
[2024-09-16] MEDS: PERFLUTREN LIPID MICROSPHERES 1.5 ML VIAL DILUTED TO 10 ML TOTAL VOLUME IV PUSH (11:45)
--- NOTE | 2024-09-16 12:12 | IVDEFINITY ---
Prior to administration of IV Definity the patient was educated on the risks and benefits of the imaging enhancing agent including potential adverse side effects. The patient verbalized understanding. Allergies were verified. No exclusion criteria were identified and at least one of the following inclusion criteria were met: 1) physician request, 2) patient technically difficult to image (per the [place] [employer] guidelines of two or more segments not discernable within the apical view), or 3) questionable left ventricular function. ?
--- NOTE | 2024-09-16 12:20 | P.PNIM_ITS ---
Progress Note: A&P Assessment and Plan (1) Generalized weakness: Code(s): R53.1 - Weakness Status: Acute (2) Transaminitis: Code(s): R74.01 - Elevation of levels of liver transaminase levels Status: Acute (3) Atrial flutter: Code(s): I48.92 - Unspecified atrial flutter Status: Acute (4) Parkinsons: Code(s): G20 - Parkinson's disease Status: Acute (5) Benign prostatic hyperplasia: Code(s): N40.0 - Benign prostatic hyperplasia without lower urinary tract symptoms Status: Acute (6) Hypertension: Code(s): I10 - Essential (primary) hypertension Status: Acute (7) Ankle edema: Code(s): M25.473 - Effusion, unspecified ankle Status: Acute Plan Generalized weakness/Inability to ambulate Worsening Parkinson's disease vs overmedication tremors at bedside Patient has his Sinemet increased last week neurology consulted Transaminitis with prior pancreatic mass and elevated liver enzymes CT chest showed pancreatic mass with dilated biliary tree AST elevated 143 MRCP ordered and GI consulted Aflutter continue rate control Patient not on anticoagulation due to being high risk due to high fall risk Parkinson's disease continue above care HTN titrate home meds with clinical course DVT prophylaxis on Sq Lovenox Subjective Date/time seen: 09/16/24 12:20 Interval history: COmfortable at bedside CT chest reviewed Review of Systems Review of Systems: 12 systems were reviewed and are negativ e except for as per HPI. Exam Narrative: General: Nontoxic-appearing male sitting up in bed in no acute distress. Weight: 88.6 kg. BMI: 29.7. HEENT: PERRL, EOMI. Sclera anicteric. Oral mucosa moist. Neck: Supple. Respiratory: Lungs are clear to auscultation bilaterally. Cardiovascular: Regular rate and rhythm with S1-S2. Gastrointestinal: Abdomen is soft, nontender, and nondistended with positive bowel sounds. Skin: Warm and dry. Extremities: No cyanosis or clubbing. Bilateral lanny ankle edema, left greater than right. Neurological: Alert. Cranial nerves 2-12 are grossly intact. Speech is clear. No facial asymmetry. Tremors of the upper extremities. Masked faces. No gross focal deficits to casual conversation. Psychiatric: Pleasant and cooperative with normal mood and affect. Judgment and insight intact. Objective Data Vital Signs Vital Signs: Vital Signs - 24 hr 09/15/24 13:11 09/15/24 13:30 09/15/24 14:30 Temperature 97.5 F L Pulse Rate 69 65 65 Respiratory Rate 14 16 16 Blood Pressure 136/77 123/57 L 123/54 L Pulse Oximetry 97 94 94 Oxygen Delivery Room Air Fraction of Inspired Oxygen 09/15/24 15:30 09/15/24 16:30 09/15/24 17:00 Temperature Pulse Rate 65 65 59 L Respiratory Rate 16 16 18 Blood Pressure 117/49 L 121/50 L 116/53 L Pulse Oximetry 97 97 97 Oxygen Delivery Fraction of Inspired Oxygen 09/15/24 18:00 09/15/24 19:00 09/15/24 20:00 Temperature Pulse Rate 65 70 Respiratory Rate 16 16 Blood Pressure 126/57 L 137/61 Pulse Oximetry 95 96 Oxygen Delivery Room Air Fraction of Inspired Oxygen 09/15/24 20:26 09/15/24 22:00 09/16/24 00:09 Temperature 98.1 F Pulse Rate 92 71 58 L Respiratory Rate 20 18 Blood Pressure 159/94 H Pulse Oximetry 92 95 Oxygen Delivery Room Air Fraction of Inspired Oxygen 21 09/16/24 04:00 09/16/24 06:00 09/16/24 08:00 Temperature 98.3 F Pulse Rate 56 L 60 62 Respiratory Rate 18 Blood Pressure 116/46 L Pulse Oximetry 96 Oxygen Delivery Fraction of Inspired Oxygen 09/16/24 08:30 09/16/24 09:58 09/16/24 12:00 Temperature Pulse Rate 104 H Respiratory Rate Blood Pressure Pulse Oximetry Oxygen Delivery Room Air Room Air Fraction of Inspired Oxygen Intake/Output Intake/Output: Intake & Output 09/13/24 09/14/24 09/15/24 09/16/24 23:59 23:59 23:59 23:59 Intake Total 358 Output Total 275 Balance -275 358 Meds/Results Medications: Active Medications Generic Name Dose Route Start Last Admin Trade Name Freq PRN Reason Stop Dose Admin Amlodipine Besylate 5 mg 09/15/24 20:55 09/16/24 08:31 Amlodipine Besylate 5 Mg Tablet BY MOUTH 5 mg DAILY MARIBEL Administration Aspirin 81 mg 09/16/24 09:00 09/16/24 08:31 Aspirin 81 Mg Enteric Tablet PO 81 mg DAILY MARIBEL Administration Calcium Polycarbophil 1,250 mg 06/02/25 09:00 09/16/24 08:31 Calcium Polycarbophil 625 Mg Tablet PO 1,250 mg DAILY MARIBEL Administration Carbidopa/Levodopa 2 tablet 09/16/24 05:00 09/16/24 12:02 Carbidopa/Levodopa 25/100 Mg Tablet PO 2 tablet Q6H MARIBEL Administration Fish Oil 1 gm 09/16/24 09:00 09/16/24 08:31 [place] 3 Polyunsat Fatty Acids 1 Gm Cap PO 1 gm QAM MARIBEL Administration Vitamin B Complex 1 cap 09/16/24 09:00 09/16/24 08:31 Vitamin B Complex Capsule PO 1 cap DAILY MARIBEL Administration Radiology Results: ITS Impressions Chest X-Ray 09/15/24 15:18 IMPRESSION: 1. Bronchial wall thickening with mild increased initial pattern in the bilateral lower lungs without focal airspace opacities which could be related to bronchitis or mild pulmonary edema. Venous Doppler Study 09/16/24 08:19 IMPRESSION: 1. No deep venous thrombosis in either lower limb. Chest CT 09/16/24 11:04 IMPRESSION: 1. No evidence for focal pneumonia or edema. 2: Chronic intra and extrahepatic biliary dilatation masses described on prior CTA chest dated 09/17/2021. Consider correlation with MRI of the abdomen without and with contrast. Moderate thoracic spondylosis with kyphosis. 3: Small pulmonary nodules measuring 2 mm or less, likely benign. Labs Labs: Laboratory Results - last 24 hr 09/15/24 09/15/24 09/16/24 14:49 21:15 04:47 WBC 5.8 6.0 RBC 4.32 L 4.31 L Hgb 12.9 L 12.9 L Hct 41.0 L 40.7 L MCV 94.9 94.4 MCH 29.9 29.9 MCHC 31.5 L 31.7 L RDW 13.9 13.7 Plt Count 204 207 MPV 8.8 8.9 Immature Gran % (Auto) 0.3 Neut % (Auto) 67.3 Lymph % (Auto) 18.5 [place] % (Auto) 12.5 H Eos % (Auto) 0.9 Baso % (Auto) 0.5 Lymph # (Auto) 1.08 [place] # (Auto) 0.7 H Eos # (Auto) 0.1 Baso # (Auto) 0.0 Abs Immat Gran (auto) 0.02 Absolute Neuts (auto) 3.9 Absolute Nucleated RBC 0.000 Nucleated RBC % 0.0 Sodium 141 137 Potassium 3.8 3.9 Chloride 103 105 Carbon Dioxide 33 H 28 Anion Gap 5 4 BUN 19 15 Creatinine 0.75 0.61 L Estim Creat Clear Calc 57 78 Estimated GFR > 60 > 60 Glucose 147 H 89 Calcium 9.0 8.6 Magnesium 2.0 Total Bilirubin 0.9 0.8 AST 108 H 143 H ALT 52 H 20 Alkaline Phosphatase 255 H 238 H Total Creatine Kinase 137 Total Protein 7.0 7.0 Albumin 3.8 3.5 TSH (Reflex) 2.660 Urine Color Dark yellow Urine Appearance Cloudy H Urine pH 5.0 Ur Specific [place] 1.023 Urine Protein Negative Urine Glucose (UA) Negative Urine Ketones Trace H Ur Blood (Man) Negative Urine Nitrate Negative Urine Bilirubin 1+ H Urine Urobilinogen 1.0 Leukocyte Esterase Rfl Trace H Urine RBC 0-2 Urine WBC 0-5 Ur Squamous Epith Cells None seen Urine Bacteria None seen Urine Casts 0-2 Acetaminophen < 10 L Hepatitis A IgM Ab Negative Hep Bs Antigen Negative Hep B Core IgM Ab Negative Hepatitis C Ab Screen Negative Quality VTE Prophylaxis VTE prophylaxis: mechanical ordered
--- NOTE | 2024-09-16 16:33 | P.CONGI_ITS ---
Assessment and Plan Assessment and plan (1) Mass of pancreas: Code(s): K86.89 - Other specified diseases of pancreas Status: Acute Assessment and Plan: patient and daughter ok to have mrcp to have better understanding of pancreatic lesion but still they do not want intervention such as ercp or even biopsies even if suspicious for malignancy patient lost about 7 lbs last month, denies currently abdominal pain noted mild elevated transaminases will reassess after mri abdoment but do not anticipate to do any procedures (2) Elevated liver function tests: Code(s): R79.89 - Other specified abnormal findings of blood chemistry Status: Acute (3) Parkinson disease: Qualifiers: Dyskinesia presence: unspecified whether dyskinesia Fluctuating manifestations: unspecified whether manifestations fluctuate Qualified Code(s): G20.A1 - Parkinson's disease without dyskinesia, without mention of fluctuations Code(s): G20 - Parkinson's disease Status: Acute (4) Generalized weakness: Code(s): R53.1 - Weakness Status: Acute GI Consult Note Consult date/time: 09/16/24 16:33 Reason for consult: dilated bile duct HPI: Saad Norton is a 89 year old male with Parkinson on meds, hypertension, paroxysmal atrial fibrillation, and benign prostatic hyperplasia here with progression of weakness and the inability to walk. Recently his neurologist increased his carbidopa-levodopa and became more symptomatic finally admitted to hospital. ED labs were significant for hemoglobin of 12.9, carbon dioxide 33, glucose 147, AST 108, ALT 52, alkaline phosphatase 255. Chest x-ray showed findings of possible bronchitis or pulmonary edema. Also noted again biliary dilation. CT a/p last month showed Interval progression of both intra and extrahepatic biliary ductal dilatation since the 2020 examination. Soft tissue attenuation at the base of the common bile duct for which obstructing malignancy is suspected. No pancreatic ductal dilatation is appreciated, to account for the lesion at the head of the pancreas. Daughter is here and told me that about 4 years ago were told about lesion in pancreas but patient never wanted to have biopsy. Review of Systems 2 Constitutional: Constitutional: Reports weakness Eyes: Eyes: Reports no additional eye complaints ENT: Reports Normal hearing present Cardiovascular: Cardiovascular: Denies chest pain Respiratory: Respiratory: Denies hemoptysis Gastrointestinal: Gastrointestinal: Denies abdominal pain Genitourinary: Genitourinary: Denies hematuria Musculoskeletal: Musculoskeletal: Denies neck pain Integumentary/Breasts: Skin/Breast: Denies rash Neurologic: Comments: tremors Psychiatric: Psychiatric: Denies confusion REPLACED BY [facility] Past Medical History Medical History Benign prostatic hyperplasia Multiple falls Rhabdomyolysis Pressure ulcer Parkinson disease Neuropathy Hypertension Atrial fibrillation Surgical History Surgical History Status post surgical removal of malignant neoplasm of skin History of ankle surgery ORIF left ankle Family History Family History Sibling Family history of diabetes mellitus in first degree relative Mother Diabetes mellitus Hypertension Father Sudden Social History Social History Social History: Surrogate medical decision maker: Joey Norton, daughter. Code status: Smoking status: Never smoker Second hand tobacco smoke exposure: No Alcohol intake: never Substance use: never Substance use type: does not use Do You Feel Safe in your Home?: Yes Lack of Transportation: No Lack of Food: Never True Current Housing: I Have Housing Concerned About Future Housing: No Difficulty Paying Gas/Electric Bills: No Difficulty Paying for Meds: No Currently Unemployed: No Education: High School Diploma/GED Difficulty w/ Childcare or Family Care: No Living arrangements: alone Additional living arrangements comments: . Lives in his own home in [place]. He has 1 daughter. Occupation/Education: retired Additional occupation/education comments: Retired from [employer]. Spiritual care concerns: No Meds Home Medications and Allergies Home Medications ?Medication ?Instructions ?Recorded ?Confirmed ?Type omega-3 fatty acids-fish oil 684 1 cap PO DAILY 04/30/20 09/15/24 History mg-1,200 mg capsule,delayed release vitamin B complex (B 1 tablet PO DAILY 09/18/21 09/15/24 History Complex-Vitamin B12 tablet) carbidopa 25 mg-levodopa 100 mg 2 tablet PO Q6H 03/15/22 09/15/24 History tablet aspirin 81 mg tablet,delayed 81 mg PO DAILY 11/08/22 09/15/24 History release calcium polycarbophil 625 mg 1,250 mg PO DAILY 09/13/23 09/15/24 History tablet (FiberCon) amlodipine 5 mg tablet See Rx Instructions .Route 04/19/24 09/15/24 Rx .COMPLEX #90 tabs Allergies Allergy/AdvReac Type Severity Reaction Status Date / Time gabapentin (From Gabarone) Allergy Mild Rash Verified 09/15/24 13:01 Vital Signs Vital Signs - 24 hr 09/15/24 17:00 09/15/24 18:00 09/15/24 19:00 Temperature Pulse Rate 59 L 65 70 Respiratory Rate 18 16 16 Blood Pressure 116/53 L 126/57 L 137/61 Pulse Oximetry 97 95 96 Oxygen Delivery Fraction of Inspired Oxygen 09/15/24 20:00 09/15/24 20:26 09/15/24 22:00 Temperature 98.1 F Pulse Rate 92 71 Respiratory Rate 20 18 Blood Pressure 159/94 H Pulse Oximetry 92 95 Oxygen Delivery Room Air Room Air Fraction of Inspired Oxygen 21 09/16/24 00:09 09/16/24 04:00 09/16/24 06:00 Temperature 98.3 F Pulse Rate 58 L 56 L 60 Respiratory Rate 18 Blood Pressure 116/46 L Pulse Oximetry 96 Oxygen Delivery Fraction of Inspired Oxygen 09/16/24 08:00 09/16/24 08:30 09/16/24 09:58 Temperature Pulse Rate 62 Respiratory Rate Blood Pressure Pulse Oximetry Oxygen Delivery Room Air Room Air Fraction of Inspired Oxygen 09/16/24 12:00 09/16/24 12:09 09/16/24 14:00 Temperature 98.0 F Pulse Rate 104 H 76 Respiratory Rate 14 Blood Pressure 118/79 Pulse Oximetry 99 Oxygen Delivery Room Air Fraction of Inspired Oxygen 09/16/24 14:00 09/16/24 14:05 09/16/24 14:22 Temperature Pulse Rate 57 L 76 76 Respiratory Rate Blood Pressure 114/51 L 118/79 142/109 H Pulse Oximetry Oxygen Delivery Fraction of Inspired Oxygen Exam 2 Const: General: comfortable and no acute distress HENMT: Face/Nose/Sinus: Normal nares present Eyes: General: appearance normal, both eyes and all related structures Neck: Neck: supple Resp: Auscultation: clear to auscultation bilaterally Cardio: Rate: regular rate Rhythm: regular rhythm GI: Inspection: non-distended GI Palp: Yes Soft to palpation and No Tenderness to palpation present (GI) Auscultation: normal bowel sounds Skin: General skin exam: normal color Neuro: Speech: normal speech Other: tremors Extrem: General: normal to inspection Psych: Mental Status: mental status grossly normal Results Labs 09/16/24 04:47 09/16/24 04:47 Labs: Short CBC 09/16/24 Range/Units 04:47 WBC 6.0 (4.5-10.0) K/mm3 Hgb 12.9 L (14.0-18.0) g/dL Hct 40.7 L (42.0-52.0) % Plt Count 207 (150-375) k/mm3 [facility] 09/16/24 04:47 Sodium 137 Potassium 3.9 Chloride 105 Carbon Dioxide 28 BUN 15 Creatinine 0.61 L Glucose 89 Calcium 8.6 Cardiac Enzymes 09/15/24 Range/Units 21:15 Total Creatine Kinase 137 (55-170) U/L Liver Function 09/16/24 Range/Units 04:47 Total Bilirubin 0.8 (0.2-1.3) mg/dL AST 143 H (17-59) U/L ALT 20 (6-50) U/L Alkaline Phosphatase 238 H (38-126) U/L Albumin 3.5 (3.5-5.1) g/dL
--- NOTE | 2024-09-16 16:45 | WPDNEURCNPN ---
Assessment and Plan Assessment and plan (1) Parkinson disease: Qualifiers: Dyskinesia presence: unspecified whether dyskinesia Fluctuating manifestations: unspecified whether manifestations fluctuate Qualified Code(s): G20.A1 - Parkinson's disease without dyskinesia, without mention of fluctuations Code(s): G20 - Parkinson's disease Status: Acute (2) Atrial fibrillation: Qualifiers: Atrial fibrillation type: unspecified Qualified Code(s): I48.91 - Unspecified atrial fibrillation Code(s): I48.91 - Unspecified atrial fibrillation Status: Acute Plan Since the dose of Sinemet was reduced to 25/100, 2 tablets 4 times a day even though he has significant rest tremors he is overall satisfied with this does and does not want to increase the dose for now. I agree that we can keep him on the same medication so long as it does not affect his ability. The patient does not have any problem with the memory. He does seem to respond very well and does not show any sick appreciable cognitive impairment. I noted that to his liver enzymes have been elevated however there even more elevated about a year ago when he was here in the hospital. His total CPK was normal at 137. Hence I would suggest to continue the same dose of Sinemet and follow up with his neurologist in [place]. Consult date: 09/16/24 HPI: Saad Norton is a 89 year old male With history of Parkinson's disease under care of Dr. Natalie parrish at [facility] presented with complaints of being more shaky than usual. He saw his doctor recently who has advised to increase the dose of Sinemet 25/100, 2 tablets 4 times a day to 3 tablets 4 times a day. The patient had side effects from the medications and a his daughter was concerned. Patient lives by himself. He has history of atrial flutter fibrillation but he is not on any anticonvulsant. He had difficulty with walking. You came to the hospital where CT scan of brain was performed which did not show any abnormality. He also has edema both ankles and he has had a venous Doppler study today which did not show any significant abnormalities. Patient denies any difficulty with memory. The tremors are mostly present at rest and do not limit him in terms of action or activity. He does not have any freezing spells. He also does not have any dyskinetic movements. His daughter has been concerned that he may not be able to take care of himself at home. Patient denies any significant pain issues. The dose of Sinemet was reduced back to 25/100, 2 tablets 4 times a day and is feeling okay with that. Review of Systems Review of Systems: All systems reviewed & are unremarkable except as noted in HPI and below PMFSH Past Medical History Medical History Benign prostatic hyperplasia Multiple falls Rhabdomyolysis Pressure ulcer Parkinson disease Neuropathy Hypertension Atrial fibrillation Surgical History Surgical History Status post surgical removal of malignant neoplasm of skin History of ankle surgery ORIF left ankle Family History Family History Sibling Family history of diabetes mellitus in first degree relative Mother Diabetes mellitus Hypertension Father Sudden Social History Social History Social History: Surrogate medical decision maker: Joey Norton, daughter. Code status: Smoking status: Never smoker Second hand tobacco smoke exposure: No Alcohol intake: never Substance use: never Substance use type: does not use Do You Feel Safe in your Home?: Yes Lack of Transportation: No Lack of Food: Never True Current Housing: I Have Housing Concerned About Future Housing: No Difficulty Paying Gas/Electric Bills: No Difficulty Paying for Meds: No Currently Unemployed: No Education: High School Diploma/GED Difficulty w/ Childcare or Family Care: No Living arrangements: alone Additional living arrangements comments: . Lives in his own home in [place]. He has 1 daughter. Occupation/Education: retired Additional occupation/education comments: Retired from [employer]. Spiritual care concerns: No Meds Home Medications and Allergies Home Medications ?Medication ?Instructions ?Recorded ?Confirmed ?Type omega-3 fatty acids-fish oil 684 1 cap PO DAILY 04/30/20 09/15/24 History mg-1,200 mg capsule,delayed release vitamin B complex (B 1 tablet PO DAILY 09/18/21 09/15/24 History Complex-Vitamin B12 tablet) carbidopa 25 mg-levodopa 100 mg 2 tablet PO Q6H 03/15/22 09/15/24 History tablet aspirin 81 mg tablet,delayed 81 mg PO DAILY 11/08/22 09/15/24 History release calcium polycarbophil 625 mg 1,250 mg PO DAILY 09/13/23 09/15/24 History tablet (FiberCon) amlodipine 5 mg tablet See Rx Instructions .Route 04/19/24 09/15/24 Rx .COMPLEX #90 tabs Allergies Allergy/AdvReac Type Severity Reaction Status Date / Time gabapentin (From Gabarone) Allergy Mild Rash Verified 09/15/24 13:01 Vital Signs Vital Signs - 24 hr 09/15/24 17:00 09/15/24 18:00 09/15/24 19:00 Temperature Pulse Rate 59 L 65 70 Respiratory Rate 18 16 16 Blood Pressure 116/53 L 126/57 L 137/61 Pulse Oximetry 97 95 96 Oxygen Delivery Fraction of Inspired Oxygen 09/15/24 20:00 09/15/24 20:26 09/15/24 22:00 Temperature 98.1 F Pulse Rate 92 71 Respiratory Rate 20 18 Blood Pressure 159/94 H Pulse Oximetry 92 95 Oxygen Delivery Room Air Room Air Fraction of Inspired Oxygen 21 09/16/24 00:09 09/16/24 04:00 09/16/24 06:00 Temperature 98.3 F Pulse Rate 58 L 56 L 60 Respiratory Rate 18 Blood Pressure 116/46 L Pulse Oximetry 96 Oxygen Delivery Fraction of Inspired Oxygen 09/16/24 08:00 09/16/24 08:30 09/16/24 09:58 Temperature Pulse Rate 62 Respiratory Rate Blood Pressure Pulse Oximetry Oxygen Delivery Room Air Room Air Fraction of Inspired Oxygen 09/16/24 12:00 09/16/24 12:09 09/16/24 14:00 Temperature 98.0 F Pulse Rate 104 H 76 Respiratory Rate 14 Blood Pressure 118/79 Pulse Oximetry 99 Oxygen Delivery Room Air Fraction of Inspired Oxygen 09/16/24 14:00 09/16/24 14:05 09/16/24 14:22 Temperature Pulse Rate 57 L 76 76 Respiratory Rate Blood Pressure 114/51 L 118/79 142/109 H Pulse Oximetry Oxygen Delivery Fraction of Inspired Oxygen Exam Const: General: cooperative, well developed and alert Orientation/consciousness: patient oriented x3 HENMT: Head: atraumatic Mouth: Yes oropharynx normal Eyes: Alignment and Position: position normal Pupils: Equal, round and reactive pupils present EOM: EOMs intact bilaterally Neck: Neck: supple Resp: Effort & Inspection: normal respiratory effort Skin: General skin exam: normal color Neuro: General: patient oriented x3 Cranial nerves: Yes CN's II-XII intact bilaterally, Yes facial sensation intact/muscles of mastication intact, Yes Equal, round and reactive pupils present, Yes facial symmetry and Yes Midline tongue present Cognition (Neuro): normal cognition Speech: normal speech Motor exam (neuro): 5/5 motor strength present throughout Sensory Exam: normal sensation Coordination: [id number] test normal and Normal rapid alternating movements of the distal upper extremity present (Neuro) Other: Rest tremor were noted of both hands. He has mild cogwheeling. No dyskinesia or dystonia noted. His cognition appears fairly preserved. Extrem: General: pedal edema Psych: Affect: normal affect Results Labs 09/16/24 04:47 09/16/24 04:47 Labs: Short CBC 09/16/24 Range/Units 04:47 WBC 6.0 (4.5-10.0) K/mm3 Hgb 12.9 L (14.0-18.0) g/dL Hct 40.7 L (42.0-52.0) % Plt Count 207 (150-375) k/mm3 BMP 09/16/24 04:47 Sodium 137 Potassium 3.9 Chloride 105 Carbon Dioxide 28 BUN 15 Creatinine 0.61 L Glucose 89 Calcium 8.6 Cardiac Enzymes 09/15/24 Range/Units 21:15 Total Creatine Kinase 137 (55-170) U/L Liver Function 09/16/24 Range/Units 04:47 Total Bilirubin 0.8 (0.2-1.3) mg/dL AST 143 H (17-59) U/L ALT 20 (6-50) U/L Alkaline Phosphatase 238 H (38-126) U/L Albumin 3.5 (3.5-5.1) g/dL
--- NOTE | 2024-09-16 20:52 | ECHO_ITS ---
Patient Info Name: Saad Norton Age: 89 years : 1935 Gender: Male Ht: 68 in Wt: 195 lbs BSA: 2.08 m2 HR: 55 bpm BP: 116 / 46 mmHg Technical Quality: Fair Exam Date: 09/16/2024 11:21 AM Patient Status: I Admit Date: 09/16/2024 Exam Type: CA echo dop color flow w con Complete two-dimensional, color flow and Doppler transthoracic echocardiogram is performed with contrast to opacify the left ventricle and to improve the deliniation of the left ventricle endocardial borders. Staff Referring Physician: Constantino Jaimes [employer] Faculty Member: Sandra Soto Attending Provider: Constantino Jaimes Contrast/Agitated Saline Contrast/Ag. Saline: Definity Amount: 2.00 ml Administered By: Sandra Soto Existing IV Access: Yes IV Access Condition: patent with no signs of infiltration Summary 1. Left ventricular chamber dimension is normal. 2. Left ventricular systolic function is normal, estimated at 60-65. 3. The left ventricular diastolic function is grade I diastolic dysfunction. 4. E/e' 11 is mildly elevated. 5. Left atrial chamber dimension is mildly enlarged. 6. There is mild aortic valve sclerosis. 7. No pulmonary hypertension, estimated pulmonary arterial systolic pressure is 33 mmHg. 8. The prox ascending aorta size is mildly dilated at 4.2 cm. Left Ventricle E/e' 11 is mildly elevated. Left ventricular chamber dimension is normal. Left ventricular systolic function is normal, estimated at 60-65. The left ventricular diastolic function is grade I diastolic dysfunction. Right Ventricle Right ventricular chamber dimension is normal. Right ventricular systolic function is normal and with normal TAPSE 2.4 cm. Left Atria Left atrial chamber dimension is mildly enlarged. Right Atria Right atrial chamber dimension is normal. Aortic Valve The aortic valve is trileaflet. There is mild aortic valve sclerosis. There is no aortic valve stenosis. There is no aortic valve regurgitation. Pulmonic Valve There is no pulmonic regurgitation. Mitral Valve There is no mitral valve stenosis. There is no mitral valve regurgitation. Tricuspid Valve There is no tricuspid valve regurgitation. No pulmonary hypertension, estimated pulmonary arterial systolic pressure is 33 mmHg. Pericardium/Pleural There is no pericardial effusion. Inferior Vena Cava Normal inferior vena cava with >50% collapse upon inspiration consistent with normal right atrial pressure, 5 mmHg. Aorta The aortic root size at the sinus of Valsalva is normal. The prox ascending aorta size is mildly dilated at 4.2 cm. Left Ventricular Outflow Tract Name Value Normal LVOT 2D LVOT Diameter 1.9 cm LVOT Doppler LVOT Peak Velocity 120 cm/s LVOT Peak Gradient 6 mmHg LVOT Mean Gradient 3 mmHg LVOT VTI 26 cm LVOT VTI/AV VTI Ratio 0.8 LVOT Stroke Volume 72 ml LVOT CO 4.7 l/min LVOT CI 2.3 l/min/m2 Mitral Valve Name Value Normal MV Diastolic Function MV E Peak Velocity 79 cm/s MV A Peak Velocity 111 cm/s MV E/A 0.7 MV Decel Time (PW) 272 ms MV Annular TDI MV E/e' (Septal) 11.3 Tricuspid Valve Name Value Normal TV Regurgitation Doppler TR Peak Velocity 265 cm/s TR Peak Gradient 28 mmHg Estimated PAP/RSVP RA Pressure 5 mmHg <=5 PA Systolic Pressure 33 mmHg <36 RV Systolic Pressure 33 mmHg <36 TV Annular TDI TV Lateral Melody s' Velocity 16.2 cm/s >=9.5 Aortic Valve Name Value Normal AV Doppler AV Peak Velocity 142 cm/s AV Peak Gradient 8 mmHg AV Mean Gradient 5 mmHg AV VTI 32 cm AV Area (Cont Eq VTI) 2.2 cm2 >=3.0 AV Area (Cont Eq Jj) 2.3 cm2 AV DI (Jj) 0.84 AV Regurgitation 2D LVOT Area 2.7 cm2 Ventricles Name Value Normal LV Dimensions 2D/MM IVS Diastolic Thickness (2D) 1.1 cm 0.6-1.0 LVID Diastole (2D) 4.7 cm 4.2-5.8 LVIW Diastolic Thickness (2D) 0.9 cm 0.6-1.0 LVID Systole (2D) 3.1 cm 2.5-4.0 LVOT Diameter 1.9 cm LV Mass (2D Cubed) 167.76 g 88.00-224.00 LV Mass Index (2D Cubed) 81 g/m2 49-115 Relative Wall Thickness (2D) 0.37 <=0.42 LV Fractional Shortening/Ejection Fraction 2D/MM LV Fractional Shortening (2D) 34 % 25-43 LV EF (2D Teichholz) 63 % LV Diastolic Volume (4C MOD) 114 ml LV EF (4C MOD) 70 % LV Diastolic Length (4C) 8.0 cm LV Systolic Length (4C) 6.6 cm LV Stroke Volume (4C MOD) 80 ml Atria Name Value Normal LA Dimensions LA Volume (4C A-L) 54 ml RA Dimensions RA Area (4C) 12.3 cm2 <=18.0 Report Signatures
[2024-09-17] VITALS (7 sets, daily range): BP systolic 100–121; BP diastolic 47–85; PULSE 55–65; RESP 18; TEMP 36.1–36.4; O2SAT 95–97
[2024-09-17] MEDS: ACETAMINOPHEN 325 MG TABLET 650 MG PO (01:17)
[2024-09-17] MEDS: CARBIDOPA/LEVODOPA 25/100 MG TABLET 2 TABLET PO ×4 (04:57→22:38)
[2024-09-17 05:26] LABS: Basophils Percent Auto 0.4 % (0.2-1.2); Eosinophils Absolute Auto 0.1 K/mm3 (0-0.3); Eosinophils Percent Auto 1.5 % (0-4.4); Hematocrit 42.8 % (42.0-52.0); Hemoglobin 13.6 g/dL (14.0-18.0); Immature Granulocyte Absolute 0.03 K/mm3 (0.00-0.031); Immature Granulocyte Percent A 0.4 % (0-0.5); Lymphocytes Absolute Auto 1.14 K/mm3 (0.9-3.2); Mean Corpuscular HGB Conc 31.8 g/dl (32-36); Mean Corpuscular Hemoglobin 29.8 pg (26-34); Mean Corpuscular Volume 93.7 fl (80-100); Mean Platelet Volume 9.2 fl (7.4-10.4); Monocytes Absolute Auto 0.8 K/mm3 (0.1-0.6); Monocytes Percent Auto 12.1 % (2.6-8.5); Neutrophils Absolute Auto 4.6 K/mm3 (1.3-6.7); Neutrophils Percent Auto 68.6 % (45.5-73.1); Platelet Count Result 212 k/mm3 (150-375); Red Blood Count 4.57 M/mm3 (4.6-6.20); Red Cell Distribution Width 13.8 % (11.5-14.5); White Blood Count 6.7 K/mm3 (4.5-10.0)
[2024-09-17 05:40] LABS: Alanine Aminotransferase 20 U/L (6-50); Albumin Level 3.5 g/dL (3.5-5.1); Alkaline Phosphatase 314 U/L (38-126); Anion Gap 6 mmol/L (4-12); Aspartate Amino Transferase 256 U/L (17-59); Bilirubin,Total 1.7 mg/dL (0.2-1.3); Blood Urea Nitrogen 14 mg/dL (9-20); Calcium 8.8 mg/dL (8.4-10.2); Carbon Dioxide 27 mmol/L (22-30); Chloride 103 mmol/L (98-107); Estimated CRCL calculation 77 ml/min; Estimated Glomerular Filt Rate > 60; Glucose 90 mg/dL (65-110); Magnesium 1.9 mg/dL (1.6-2.3); Potassium 4.2 mmol/L (3.4-5.0); Sodium 136 mmol/L (137-145)
[2024-09-17] MEDS: ENOXAPARIN 40 MG/0.4 ML SYRINGE SUB-Q (09:00)
[2024-09-17] MEDS: amLODIPine BESYLATE 5 MG TABLET BY MOUTH (09:27)
[2024-09-17] MEDS: ASPIRIN 81 MG ENTERIC TABLET PO (09:27)
[2024-09-17] MEDS: VITAMIN B COMPLEX CAPSULE 1 CAP PO (13:13)
[2024-09-17] MEDS: calcium polycarbophiL 625 MG TABLET 1250 MG PO (13:13)
[2024-09-17] MEDS: OMEGA 3 POLYUNSAT FATTY ACIDS 1 GM CAP PO (13:13)
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
[2024-09-18] MEDS: CARBIDOPA/LEVODOPA 25/100 MG TABLET 2 TABLET PO ×4 (04:46→22:23)
[2024-09-18 05:36] VITALS: BP 132/58; PULSE 69; RESP 18; TEMP 36.1; O2SAT 94
[2024-09-18 08:00] VITALS: PULSE 69; TEMP 36.1; O2SAT 94
[2024-09-18] MEDS: amLODIPine BESYLATE 5 MG TABLET BY MOUTH (08:22)
[2024-09-18] MEDS: calcium polycarbophiL 625 MG TABLET 1250 MG PO (08:22)
[2024-09-18] MEDS: ASPIRIN 81 MG ENTERIC TABLET PO (08:22)
[2024-09-18] MEDS: OMEGA 3 POLYUNSAT FATTY ACIDS 1 GM CAP PO (08:22)
[2024-09-18] MEDS: VITAMIN B COMPLEX CAPSULE 1 CAP PO (08:23)
[2024-09-18] MEDS: ENOXAPARIN 40 MG/0.4 ML SYRINGE SUB-Q (08:24)
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
[2024-09-18 14:58] VITALS: BP 147/66; PULSE 66; RESP 18; TEMP 36.2; O2SAT 97
[2024-09-18 21:49] VITALS: BP 131/62; PULSE 61; RESP 18; TEMP 37; O2SAT 97
[2024-09-19] MEDS: CARBIDOPA/LEVODOPA 25/100 MG TABLET 2 TABLET PO ×2 (05:31→11:31)
[2024-09-19 05:44] VITALS: BP 129/66; PULSE 60; RESP 18; TEMP 36.9; O2SAT 98
[2024-09-19] MEDS: amLODIPine BESYLATE 5 MG TABLET BY MOUTH (08:34)
[2024-09-19] MEDS: ASPIRIN 81 MG ENTERIC TABLET PO (08:34)
[2024-09-19] MEDS: ENOXAPARIN 40 MG/0.4 ML SYRINGE SUB-Q (08:34)
[2024-09-19] MEDS: OMEGA 3 POLYUNSAT FATTY ACIDS 1 GM CAP PO (08:34)
[2024-09-19] MEDS: calcium polycarbophiL 625 MG TABLET 1250 MG PO (08:34)
[2024-09-19] MEDS: VITAMIN B COMPLEX CAPSULE 1 CAP PO (08:34)
[2024-09-19 08:37] VITALS: BP 125/65; PULSE 62; RESP 16; TEMP 37.1; O2SAT 100
[2024-09-19 08:48] VITALS: BP 125/65; PULSE 62; RESP 16; TEMP 37.1; O2SAT 100
--- NOTE | 2024-09-19 11:19 | PM.DS ---
DS: Admitting Diagnosis Discharge Date 09/19/24 Admitting Diagnosis Weakness, unable to walk. DS: Discharge Diagnosis Discharge Diagnosis (1) Generalized weakness: Code(s): R53.1 - Weakness Status: Acute (2) Transaminitis: Code(s): R74.01 - Elevation of levels of liver transaminase levels Status: Acute (3) Atrial flutter: Code(s): I48.92 - Unspecified atrial flutter Status: Acute (4) Parkinsons: Code(s): G20 - Parkinson's disease Status: Acute (5) Benign prostatic hyperplasia: Code(s): N40.0 - Benign prostatic hyperplasia without lower urinary tract symptoms Status: Acute (6) Hypertension: Code(s): I10 - Essential (primary) hypertension Status: Acute (7) Ankle edema: Code(s): M25.473 - Effusion, unspecified ankle Status: Acute Plan CT chest reviewed no PNA or pulmonary edema, stats feels better, tremors are better and was able to work with PT, will monitor. 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 Generalized weakness/Inability to ambulate Worsening Parkinson's disease vs overmedication tremors at bedside Patient has his Sinemet increased last week neurology consulted Transaminitis with prior pancreatic mass and elevated liver enzymes CT chest showed pancreatic mass with dilated biliary tree AST elevated 143 MRCP ordered and GI consulted Aflutter continue rate control Patient not on anticoagulation due to being high risk due to high fall risk Parkinson's disease continue above care HTN titrate home meds with clinical course DVT prophylaxis on Sq Lovenox DS: Summary Hospital Course Hospital Course: CT chest reviewed no PNA or pulmonary edema, stats feels better, tremors are better and was able to work with PT, will monitor. 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 today patient is clinically stable, will discharge [facility] to [facility] Time Spent with Patient Time attestation: Total time spent providing and/or coordinating discharge services: Exam Narrative: Patient is comfortable, NAD HEENT: eyes are clear and none icteric LUNGS:CTA HEART: RR S1S2 ABD: BS+, Soft and nontender Lower extremities: no edema SKIN: nonjaundiced Neuro: grossly intact. Discharge Plan Discharge Attending physician on discharge: Constantino Jaimes Consulting providers: Cassidy Frausto; Les Oneill; Blake Ferreira; Taylor Kim; Ovidio Felix; Sahilesh Mckeon Discharging Clinician: Jenna Ordoñez Patient Disposition: [facility] Activity: as tolerated Diet: heart healthy Discharge Instructions: patient to follow up with his neurologist and primary care provider as soon as possible. Patient Language: Upper Sorbian Follow-up/Referrals: Justin Baltazar APRN [Primary Care Provider] - Cassidy Frausto MD [Physician] - Discharge Medications: Continued carbidopa-levodopa 25-100 mg tablet 2 tablet PO Q6H vitamin B complex [B Complex-Vitamin B12] Tablet 1 tablet PO DAILY aspirin 81 mg tablet,delayed release (DR/EC) 81 mg PO DAILY omega-3 fatty acids-fish oil 684-1,200 mg Capsule,Delayed Release(Dr/Ec) 1 cap PO DAILY calcium polycarbophil [FiberCon] 625 mg tablet 1,250 mg PO DAILY amlodipine 5 mg tablet See Rx Instructions .ROUTE .COMPLEX Qty: 90 1RF Dose Instruction: TAKE 1 TABLET BY MOUTH DAILY Rx Instructions: TAKE 1 TABLET BY MOUTH DAILY Date of admission: 09/16/24 10:18 Primary Care Provider: Justin Baltazar Admitting Provider: Constantino Jaimes Attending physician on admission: Jenna Ordoñez Condition: Stable
== END 2024-09-19 13:36 | DRG 57 ==
LOC: ANHED 17:02 → ANH2MED 18:06
PROVIDERS: Physician Assistant; Admitting Provider Internal Medicine; Emergency Provider Emergency Medicine; PCP Nurse Practitioner; Visit Provider Family Medicine
DX: G20.A1 Parkinson's disease without dyskinesia, without mention of fluctuations (principal); I48.92 Unspecified atrial flutter; R53.1 Weakness; I48.0 Paroxysmal atrial fibrillation; N40.0 Benign prostatic hyperplasia without lower urinary tract symptoms; I10 Essential (primary) hypertension; K86.9 Disease of pancreas, unspecified; M25.473 Effusion, unspecified ankle; Z53.29 Procedure and treatment not carried out because of patient's decision for other reasons; Z85.828 Personal history of other malignant neoplasm of skin
CPT/HCPCS: 36415; 71045; 71250; 73620; 74183; 76376; 80053; 80074; 80143; 81001; 82550; 83735; 84443; 85025; 85027; 93005; 93970; 97110; 97116; 97162; 97166; 97530; 97535; 99285; A9270; A9577; C8929; G0378; J1650; Q9957